=== PATIENT | male | born 1960 | race Caucasian/White ===

== ENCOUNTER 2021-03-28 16:19 | Emergency (ER) | payer OTHER, SELFPAY ==
--- NOTE | ~2021-03-28 | XR_ITS ---
EXAMINATION: XR chest 2V DATE: 03/28/2021 16:45 INDICATION: Midsternal chest pain TECHNIQUE: PA and lateral views of the chest are obtained. COMPARISON: None available FINDINGS: The lungs are free of acute opacities. There is no pleural effusion or pneumothorax. The ca rdiomediastinal silhouette is normal. There is mild thoracic spondylosis. IMPRESSION: 1. No acute cardiopulmonary abnormality. Reviewed, dictated and finalized at location [facility]
--- NOTE | 2021-03-28 16:20 | ECG_ITS ---
Measurements Intervals [place] Rate: 83 P: 58 DC: 136 QRS: 34 QRSD: 101 T: 7 QT: 369 QTc: 436 Interpretive Statements SINUS RHYTHM DELAYED PRECORDIAL R/S TRANSITION INFERIOR INFARCT, AGE INDETERMINATE ABNORMAL ECG Electronically Signed On 03-28-2021 18:23:13 ADVERTISING COORDINATOR by Pedrito Guillen D.O.
[2021-03-28 16:21] VITALS: BP 166/102; PULSE 93; RESP 18; TEMP 36.9; O2SAT 100
[2021-03-28 16:51] LABS: Basophils Percent Auto 0.4 % (0.2-1.2); Eosinophils Absolute Auto 0.1 K/mm3 (0-0.3); Eosinophils Percent Auto 0.7 % (0-4.4); Hematocrit 42.7 % (42.0-52.0); Hemoglobin 14.5 g/dL (14.0-18.0); Immature Granulocyte Absolute 0.03 K/mm3 (0.00-0.031); Immature Granulocyte Percent A 0.3 % (0-0.5); Lymphocytes Absolute Auto 2.28 K/mm3 (0.9-3.2); Lymphocytes Percent Auto 23.7 % (18.3-44.2); Mean Corpuscular Hemoglobin 33.6 pg (26-34); Mean Corpuscular Volume 98.8 fl (80-100); Mean Platelet Volume 11.5 fl (7.4-10.4); Monocytes Absolute Auto 0.7 K/mm3 (0.1-0.6); Monocytes Percent Auto 7.6 % (2.6-8.5); Neutrophils Absolute Auto 6.5 K/mm3 (1.3-6.7); Neutrophils Percent Auto 67.3 % (45.5-73.1); Platelet Count Result 187 k/mm3 (150-375); Red Blood Count 4.32 M/mm3 (4.6-6.20); Red Cell Distribution Width 13.5 % (11.5-14.5); White Blood Count 9.6 K/mm3 (4.5-10.0)
[2021-03-28 16:58] LABS: Alanine Aminotransferase 39 U/L (4-50); Albumin Level 4.7 g/dL (3.5-5.1); Alkaline Phosphatase 71 U/L (38-126); Anion Gap 10 mmol/L (8-16); Aspartate Amino Transferase 37 U/L (17-59); Bilirubin,Total 0.8 mg/dL (0.2-1.3); Blood Urea Nitrogen 16 mg/dL (9-20); Calcium 9.3 mg/dL (8.4-10.2); Carbon Dioxide 25 mmol/L (22-30); Chloride 102 mmol/L (98-107); Estimated CRCL calculation 68 ml/min; Estimated Glomerular Filt Rate > 60; Glucose 131 mg/dL (65-110); Lipase 101 U/L (23-300); Potassium 4.2 mmol/L (3.4-5.0); Sodium 137 mmol/L (137-145)
[2021-03-28 17:03] LABS: Partial Thromboplastin Time 29.2 SECONDS (22.3-36.8); Prothrombin Time 13.2 Seconds (11.1-14.7)
[2021-03-28 17:09] LABS: Troponin I < 0.012 ng/mL (0.000-0.034)
[2021-03-28 17:26] VITALS: BP 125/87; PULSE 77; RESP 22; O2SAT 97
[2021-03-28 17:37] VITALS: PULSE 76
--- NOTE | 2021-03-28 17:57 | ED.CHESTPAIN ---
HPI - Chest Pain General Chief Complaint: Chest Pain Stated Complaint: chest pains Time Seen by Provider: 03/28/21 17:40 Source: patient Mode of arrival: ambulatory Limitations: no limitations History of Present Illness HPI narrative: Patient is 61-year-old male complain of chest pain, midsternal, dull, was 6 out of 10, now resolved, nonradiating started this morning. Patient denies any shortness of breath, abdominal pain, nausea, vomiting, diaphoresis, fever or chills Related Data Home Medications Medication Instructions Recorded Confirmed esomeprazole magnesium [Nexium mg 03/28/21 24HR] Allergies Allergy/AdvReac Type Severity Reaction Status Date / Time No Known Allergies Allergy Verified 03/28/21 16:27 Review of Systems Review of Systems: All systems reviewed & are unremarkable except as noted in HPI and below Constitutional: Constitutional: Denies body ache(s), Denies chills, Denies excessive sweating, Denies fatigue, Denies fever(s), Denies headache(s), Denies lethargy, Denies malaise, Denies weakness and Denies weight loss Eyes: Eyes: Denies blurry vision, Denies change in vision and Denies loss of vision ENT: Denies dizziness, Denies ear discharge, Denies headache(s), Denies lip swelling, Denies epistaxis, Denies nasal congestion, Denies neck pain, Denies throat swelling and Denies tongue swelling Cardiovascular: Cardiovascular: Denies diaphoresis, Denies rapid heart rate, Denies edema, Denies irregular heart rhythm, Denies lightheadedness, Denies palpitations, Denies dyspnea and Denies dyspnea on exertion Respiratory: Respiratory: Denies chest congestion, Denies cough, Denies hemoptysis, Denies dyspnea and Denies dyspnea on exertion Gastrointestinal: Gastrointestinal: Denies abdominal pain, Denies melena, Denies hematochezia, Denies diarrhea, Denies nausea, Denies vomiting and Denies hematemesis Musculoskeletal: Musculoskeletal: Denies abnormal gait, Denies deformity, Denies joint swelling, Denies limited range of motion, Denies neck pain and Denies numbness Neurologic: Denies Abnormal speech present, Denies abnormal gait, Denies confusion, Denies dizziness, Denies headache(s), Denies focal weakness, Denies loss of vision, Denies numbness, Denies Other visual disturbances, Denies Sensory deficit (Neuro) and Denies weakness Psychiatric: Psychiatric: Denies confusion, Denies depression, Denies auditory hallucinations, Denies homicidal ideation and Denies suicidal ideation Endocrine: Endocrine: Denies cold intolerance, Denies excessive sweating, Denies fatigue, Denies heat intolerance and Denies palpitations Hematologic/Lymphatic: Hematologic/Lymphatic: Denies easy bleeding and Denies easy bruising Allergic/Immunologic: Allergic/Immunologic: Denies lip swelling, Denies throat swelling and Denies tongue swelling PMFSH Comments Past medical history: None Family history: Negative for coronary artery disease or [place] Social history: Non-smoker no EtOH or drug use Exam Const: General: cooperative, healthy appearing, comfortable, no acute distress, well developed, alert and awake; No confusion Orientation/consciousness: oriented to person, oriented to place, oriented to time, patient oriented x3 and No confusion Limitations: no limitations HENMT: Head: normal to inspection, normocephalic and atraumatic Ears: hearing grossly normal bilaterally, TM normal on the right and TM normal on the left General nose exam: Normal external nose present, Normal nares present and No nasal discharge present Face and sinus: normal facial exam Mouth: Yes Normal oral and palatal mucosa present, Yes lip normal, Yes tongue normal and Yes oropharynx normal Throat: posterior oropharynx normal, tonsils normal and uvula midline Eyes: General: appearance normal, both eyes and all related structures Pupils: Equal, round and reactive pupils present EOM: EOMs intact bilaterally Neck: Neck: normal visual inspection, full ROM, no lymphadenop
[2021-03-28 18:31] VITALS: BP 146/92; PULSE 73; RESP 22; O2SAT 97
[2021-03-28 19:16] VITALS: BP 157/96; PULSE 82; RESP 23; O2SAT 97
[2021-03-28 19:46] LABS: Troponin I < 0.012 ng/mL (0.000-0.034)
[2021-03-28 20:56] VITALS: BP 157/96; PULSE 78; RESP 18; O2SAT 100
== END 2021-03-28 20:57 | disposition home or self-care (01) ==
PROVIDERS: Emergency Provider Emergency Medicine
DX: R07.89 Other chest pain (principal); R94.31 Abnormal electrocardiogram [ECG] [EKG]
CPT/HCPCS: 36415; 71046; 80053; 83690; 84484; 85025; 85610; 85730; 93005; 99284

== ENCOUNTER 2021-04-09 11:23 | Outpatient (CLI) | payer OTHER, SELFPAY ==
[2021-04-09 20:29] LABS: Hemoglobin A1C 5.1 % (<5.7)
[2021-04-09 20:47] LABS: Prostate Specific Antigen 8.5 ng/mL (< OR = 4.0)
== END 2021-04-09 11:24 | disposition home or self-care (01) ==
LOC: ANHBWCLAB 11:24
PROVIDERS: PCP Family Medicine; Visit Provider Family Medicine
DX: R73.9 Hyperglycemia, unspecified (principal); Z12.5 Encounter for screening for malignant neoplasm of prostate
CPT/HCPCS: 36415; 83036; 84153; G0103

== ENCOUNTER 2022-04-15 11:43 | Outpatient (CLI) | payer OTHER, SELFPAY ==
[2022-04-15 18:42] LABS: Basophils Absolute Auto 0.1 K/mm3 (0.0-0.1); Eosinophils Absolute Auto 0.1 K/mm3 (0-0.3); Eosinophils Percent Auto 1.5 % (0-4.4); Hemoglobin 14.5 g/dL (14.0-18.0); Immature Granulocyte Absolute 0.02 K/mm3 (0.00-0.031); Immature Granulocyte Percent A 0.3 % (0-0.5); Lymphocytes Absolute Auto 2.44 K/mm3 (0.9-3.2); Monocytes Absolute Auto 0.5 K/mm3 (0.1-0.6); Monocytes Percent Auto 9.1 % (2.6-8.5); Neutrophils Absolute Auto 2.7 K/mm3 (1.3-6.7); Neutrophils Percent Auto 46.1 % (45.5-73.1); Platelet Count Result 197 k/mm3 (150-375); Red Cell Distribution Width 13.9 % (11.5-14.5); White Blood Count 5.8 K/mm3 (4.5-10.0)
[2022-04-15 20:07] LABS: Alanine Aminotransferase 45 U/L (6-50); Albumin Level 4.3 g/dL (3.5-5.1); Alkaline Phosphatase 74 U/L (38-126); Anion Gap 7 mmol/L (8-16); Aspartate Amino Transferase 53 U/L (17-59); Bilirubin,Total 0.7 mg/dL (0.2-1.3); Blood Urea Nitrogen 13 mg/dL (9-20); Calcium 8.9 mg/dL (8.4-10.2); Carbon Dioxide 29 mmol/L (22-30); Chloride 103 mmol/L (98-107); Estimated Glomerular Filt Rate > 60; Glucose 91 mg/dL (65-110); HDL Direct 60 mg/dL; Potassium 4.5 mmol/L (3.4-5.0); Sodium 139 mmol/L (137-145); Triglycerides 260 mg/dL (<150)
[2022-04-15 20:15] LABS: LDL Cholesterol Direct 197 mg/dL
[2022-04-15 20:38] LABS: Prostate Specific Antigen 9.7 ng/mL (< OR = 4.0)
[2022-04-15 21:03] LABS: Cholesterol 328 mg/dL (0-200)
== END 2022-04-15 11:44 | disposition home or self-care (01) ==
PROVIDERS: PCP Family Medicine; Visit Provider Family Medicine
DX: Z00.00 Encounter for general adult medical examination without abnormal findings (principal); R07.9 Chest pain, unspecified; R97.20 Elevated prostate specific antigen [PSA]; R73.9 Hyperglycemia, unspecified; Z12.5 Encounter for screening for malignant neoplasm of prostate
CPT/HCPCS: 36415; 80053; 80061; 84153; 85025; G0103

== ENCOUNTER 2024-02-02 11:02 | Inpatient (IN) | payer MEDICARE, SELFPAY ==
[2024-02-02] VITALS (7 sets, daily range): BP systolic 131–158; BP diastolic 67–88; PULSE 68–86; RESP 14–18; TEMP 36.6–37.3; O2SAT 96–100; BMI 25.9
--- NOTE | ~2024-02-02 | CT_ITS ---
EXAMINATION: CT abdomen pelvis w con DATE: 02/02/2024 14:40 INDICATION: Blood in the stool and urine with abdominal pain. TECHNIQUE: Computed tomography (CT) of the abdomen and pelvis was performed with 100 mL Omnipaque-350 intravenous contrast. Automated exposure control and iterative reconstruction technique were employe d. The dose-length product was 480.05 mGy-cm. COMPARISON: None FINDINGS: Lung bases are clear. Heart size normal. No pericardial or pleural effusion. Small sliding-type hiata l hernia. There are a couple small cysts in the lateral segment left hepatic lobe the largest measuri ng 1.2 cm. Multiple calcified gallstones in the normal partially decompressed gallbladder. Spleen, pa ncreas, bilateral adrenal glands and kidneys are normal. No evident urolithiasis. Small bowel and adan endix are normal. Moderate colonic diverticulosis with distal predominance. There is wall thickening and inflammatory streaking surrounding the proximal sigmoid colon. There is a more dense tract of sof t tissue and fluid density with a few associated foci of extraluminal gas extending between the affec low segment of the sigmoid colon and the dome of the bladder. There is prominent wall thickening of t he bladder along with some intraluminal gas. The constellation of findings the most consistent with p erforated diverticulitis and secondary colovesical fistula formation. Prostatomegaly. No drainable ab scess. Small fat-containing umbilical hernia. No pathologically enlarged abdominal or pelvic lymphade nopathy. Mild scattered degenerative skeletal changes in the spine and pelvis. IMPRESSION: 1. Diverticulitis with colovesical fistula. 2. Cholelithiasis. 3. Small sliding-type hiatal hernia. Reviewed, dictated and finalized at location B. [facility]
--- NOTE | 2024-02-02 12:53 | ED_ITS ---
HPI - Abdominal Pain General Chief Complaint: Abdominal Pain <Joseline Fan PA-C - Last Filed: 02/02/24 12:55> Stated Complaint: abd pain, rectal bleeding <Joseline Fan PA-C - Last Filed: 02/02/24 12:55> Time Seen by Provider: 02/02/24 15:43 <Joseline Fan PA-C - Last Filed: 02/02/24 12:55> Focused HPI: 63 y/o M presents to the ED for lower abdominal pain x1 month. Also reporting blood in urine and blood and mucus in stool for 4 days. He is scheduled for colonoscopy in 1 week and is scheduled to see a GI physician in February. He is also reporting dysuria. Denies nausea, vomiting, diarrhea, fevers. No past medical history, no surgical history. GENERAL: Well-appearing, well-nourished, and in no acute distress. HEAD: Normocephalic, atraumatic. CHEST: Clear to auscultation. ?No respiratory distress. HEART: Regular rate and rhythm.? NEURO: ?Alert and oriented x3. Patient screened in triage and initial orders placed.? ?Additional care and disposition to be based upon?diagnostic testing and treatment. <Joseline Fan PA-C - Last Filed: 02/02/24 12:55> Source: patient and family <Hetal Matthews MD - Last Filed: 02/02/24 17:08> History of Present Illness HPI narrative: AGREE WITH ABOVE <Hetal Matthews MD - Last Filed: 02/02/24 17:08> MD elicited complaint: abdominal pain <Hetal Matthews MD - Last Filed: 02/02/24 17:08> Related Data Home Medications: Home Medications Medication Instructions Recorded Confirmed esomeprazole magnesium 20 mg mg 03/28/21 01/24/24 capsule,delayed release (Nexium 24HR) multivitamin (Daily Multi-Vitamin 1 tablet PO DAILY 04/09/21 01/24/24 tablet) <DANI Whitney Last Filed: 02/02/24 12:55> Allergies/Adverse Reactions: Allergies Allergy/AdvReac Type Severity Reaction Status Date / Time No Known Allergies Allergy Verified 01/24/24 10:45 <Joseline Fan PA-C - Last Filed: 02/02/24 12:55> Review of Systems Review of Systems: All systems reviewed & are unremarkable except as noted in HPI and below <Hetal Matthews MD - Last Filed: 02/02/24 17:08> PMFSH Past Medical History Medical History: Medical History H/O gastroesophageal reflux (GERD) <Joseline Fan PA-C - Last Filed: 02/02/24 12:55> Surgical History Surgical History: Surgical History History of surgery on arm for broken bones <Joseline Fan PA-C - Last Filed: 02/02/24 12:55> Family History Family History: Family History Father Lung cancer Mother Ovarian cancer <Joseline Fan PA-C - Last Filed: 02/02/24 12:55> Social History Social History: Social History Smoking status: Never smoker Lack of Transportation: No Lack of Food: Never True Current Housing: I Have Housing Concerned About Future Housing: No Difficulty Paying Gas/Electric Bills: No Difficulty Paying for Meds: No Currently Unemployed: No Difficulty w/ Childcare or Family Care: Decline to Answer <Joseline Fan PA-C - Last Filed: 02/02/24 12:55> Exam Narrative: GENERAL APPEARANCE: WELL-DEVELOPED, WELL-NOURISHED SKIN: NORMAL COLOR HEAD: NORMOCEPHALIC, NONTRAUMATIC EYES: CLEAR CONJUNCTIVA ENT: OROPHARYNX NORMAL, EARS NORMAL, NOSE NORMAL NECK: SUPPLE, NONTENDER CHEST AND RESPIRATORY: AIRWAY PATENT, NO RESPIRATORY DISTRESS, NO ACCESSORY MUSCLE USE HEART: REGULAR RATE/RHYTHM ABDOMEN: SOFT, MILD SUPRAPUBIC TENDERNESS, NO ORGANOMEGALY, QUIET BOWEL SOUNDS VASCULAR: NORMAL PERIPHERAL PULSES, NORMAL CAPILLARY REFILL. MUSCULOSKELETAL: NORMAL RANGE OF MOTION, NONTENDER BACK NEUROLOGIC: ALERT AND ORIENTED ?3, LOOK OUT TOWER FIRE WATCHER IS NORMAL TESTED, NO GROSS MOTOR DEFICIT <Hetal Matthews MD - Last Filed: 02/02/24 17:08> Course Consultations Consultation #1: DR. VILLARREAL <Hetal Matthews MD - Last Filed: 02/02/24 17:08> Date: 02/02/24 <Hetal Matthews MD - Last Filed: 02/02/24 17:08> Time: 17:07 <Hetal Matthews MD - Last Filed: 02/02/24 17:08> Vital Signs Vital signs: Vital Signs Temperature 36.6 C 02/02/24 11:24 Pulse Rate 81 02/02/24 11:24 Respiratory Rate 14 02/02/24 11:24 Blood Pressure 132/67 02/02/24 11:24 Pulse Oximetry 100 02/02/24 11:24 Oxygen Delivery Room Air 02/02/24 11:24 Temperature 36.9 C 02/02/24 16:43 Pulse Rate 82 02/02/24 16:43 Respiratory Rate 15 02/02/24 16:43 Blood Pressure 158/88 H 02/02/24 16:43 Pulse Oximetry 99 02/02/24 16:43 Oxygen Delivery Room Air 02/02/24 11:24 <Joseline Fan PA-C - Last Filed: 02/02/24 12:55> Vital Signs Temperature 36.6 C 02/02/24 11:24 Pulse Rate 81 02/02/24 11:24 Respiratory Rate 14 02/02/24 11:24 Blood Pressure 132/67 02/02/24 11:24 Pulse Oximetry 100 02/02/24 11:24 Oxygen Delivery Room Air 02/02/24 11:24 Temperature 36.9 C 02/02/24 16:43 Pulse Rate 82 02/02/24 16:43 Respiratory Rate 15 02/02/24 16:43 Blood Pressure 158/88 H 02/02/24 16:43 Pulse Oximetry 99 02/02/24 16:43 Oxygen Delivery Room Air 02/02/24 11:24 <Hetal Matthews MD - Last Filed: 02/02/24 17:08> MDM - Abdominal Pain MDM Narrative Medical decision making narrative: PATIENT PRESENTS WITH SUPRAPUBIC TENDERNESS OVER 1 MONTH. PATIENT ALSO NOTICE SOME REDNESS IN THE STOOL OVER THE LAST FEW WEEKS SCHEDULED FOR COLONOSCOPY NEXT WEEK. VITAL SIGNS ARE STABLE PHYSICAL EXAMINATION SHOWING SLIGHT TENDERNESS OF THE SUPRAPUBIC AREA WORKUP TODAY SHOWED ELEVATED WBC 17.7, LOW HEMOGLOBIN 11.7, ELEVATED PLATELET 395, NORMAL LIVER ENZYMES, URINALYSIS SHOWED EVIDENCE OF INFECTION CT ABDOMEN AND PELVIS WITH IV CONTRAST SHOWED DIVERTICULITIS WITH COLOVESICAL FISTULA URINARY TRACT INFECTION IS SECONDARY TO THE COLOVESICAL FISTULA ADMIT TO HOSPITALIST, CONSULT SURGERY <Hetal Matthews MD - Last Filed: 02/02/24 17:08> Differential Diagnosis Differential diagnosis: Likely other ( ABOVE) <Hetal Matthews MD - Last Filed: 02/02/24 17:08> Medical Records Attestation: I reviewed the patient's medical records. <Hetal Matthews MD - Last Filed: 02/02/24 17:08> Lab Data Attestation: I reviewed the patient's lab results. <Hetal Matthews MD - Last Filed: 02/02/24 17:08> Result diagrams: 02/02/24 13:51 02/02/24 13:51 <Joseline Fan PA-C - Last Filed: 02/02/24 12:55> Labs: Lab Results 02/02/24 Range/Units 13:51 WBC 11.7 H (4.5-10.0) K/mm3 RBC 3.86 L (4.6-6.20) M/mm3 Hgb 11.7 L (14.0-18.0) g/dL Hct 36.2 L (42.0-52.0) % MCV 93.8 (80-100) fl MCH 30.3 (26-34) pg MCHC 32.3 (32-36) g/dl RDW 13.6 (11.5-14.5) % Plt Count 395 H D (150-375) k/mm3 MPV 10.2 (7.4-10.4) fl Immature Gran % (Auto) 0.6 H (0-0.5) % Neut % (Auto) 73.4 H (45.5-73.1) % Lymph % (Auto) 16.9 L (18.3-44.2) % [place] % (Auto) 7.1 (2.6-8.5) % Eos % (Auto) 1.5 (0-4.4) % Baso % (Auto) 0.5 (0.2-1.2) % Lymph # (Auto) 1.97 (0.9-3.2) K/mm3 [place] # (Auto) 0.8 H (0.1-0.6) K/mm3 Eos # (Auto) 0.2 (0-0.3) K/mm3 Baso # (Auto) 0.1 (0.0-0.1) K/mm3 Abs Immat Gran (auto) 0.07 H (0.00-0.031) K/mm3 Absolute Neuts (auto) 8.6 H (1.3-6.7) K/mm3 Absolute Nucleated RBC 0.000 (0.0-0.012) K/mm3 Nucleated RBC % 0.0 (0.0-0.2) % Sodium 138 (137-145) mmol/L Potassium 4.4 (3.4-5.0) mmol/L Chloride 101 (98-107) mmol/L Carbon Dioxide 29 (22-30) mmol/L Anion Gap 8 (4-12) mmol/L BUN 14 (9-20) mg/dL Creatinine 0.80 (0.7-1.3) mg/dL Estim Creat Clear Calc 78 ml/min Estimated GFR > 60 (59 - ) Glucose 97 (65-110) mg/dL Calcium 9.1 (8.4-10.2) mg/dL Total Bilirubin 0.4 (0.2-1.3) mg/dL AST 20 (17-59) U/L ALT 18 (6-50) U/L Alkaline Phosphatase 97 (38-126) U/L Total Protein 8.0 (6.3-8.2) g/dL Albumin 4.0 (3.5-5.1) g/dL Lipase 79 (23-300) U/L Urine Color Dark yellow (Yellow) Urine Appearance Turbid H (Clear) Urine pH 7.0 (5.0-9.0) Ur Specific [place] 1.016 (1.001-1.035) Urine Protein 1+ H (Negative) mg/dL Urine Glucose (UA) Negative (Negative) mg/dL Urine Ketones Negative (Negative) mg/dL Ur Blood (Man) 2+ H (Negative) Urine Nitrate Negative (Negative) Urine Bilirubin Negative (Negative) Urine Urobilinogen 0.2 (<2.0) mg/dL Leukocyte Esterase Rfl 3+ H (Negative) CANDI/UL Urine RBC 11-20 H (0-2) /hpf Urine WBC >100 H (0-3) /hpf Ur Squamous Epith Cells None seen (Few) /hpf Urine Bacteria None seen /hpf Urine Casts 0-2 <Joseline Fan PA-C - Last Filed: 02/02/24 12:55> Lab Results 02/02/24 Range/Units 13:51 WBC 11.7 H (4.5-10.0) K/mm3 RBC 3.86 L (4.6-6.20) M/mm3 Hgb 11.7 L (14.0-18.0) g/dL Hct 36.2 L (42.0-52.0) % MCV 93.8 (80-100) fl MCH 30.3 (26-34) pg MCHC 32.3 (32-36) g/dl RDW 13.6 (11.5-14.5) % Plt Count 395 H D (150-375) k/mm3 MPV 10.2 (7.4-10.4) fl Immature Gran % (Auto) 0.6 H (0-0.5) % Neut % (Auto) 73.4 H (45.5-73.1) % Lymph % (Auto) 16.9 L (18.3-44.2) % [place] % (Auto) 7.1 (2.6-8.5) % Eos % (Auto) 1.5 (0-4.4) % Baso % (Auto) 0.5 (0.2-1.2) % Lymph # (Auto) 1.97 (0.9-3.2) K/mm3 [place] # (Auto) 0.8 H (0.1-0.6) K/mm3 Eos # (Auto) 0.2 (0-0.3) K/mm3 Baso # (Auto) 0.1 (0.0-0.1) K/mm3 Abs Immat Gran (auto) 0.07 H (0.00-0.031) K/mm3 Absolute Neuts (auto) 8.6 H (1.3-6.7) K/mm3 Absolute Nucleated RBC 0.000 (0.0-0.012) K/mm3 Nucleated RBC % 0.0 (0.0-0.2) % Sodium 138 (137-145) mmol/L Potassium 4.4 (3.4-5.0) mmol/L Chloride 101 (98-107) mmol/L Carbon Dioxide 29 (22-30) mmol/L Anion Gap 8 (4-12) mmol/L BUN 14 (9-20) mg/dL Creatinine 0.80 (0.7-1.3) mg/dL Estim Creat Clear Calc 78 ml/min Estimated GFR > 60 (59 - ) Glucose 97 (65-110) mg/dL Calcium 9.1 (8.4-10.2) mg/dL Total Bilirubin 0.4 (0.2-1.3) mg/dL AST 20 (17-59) U/L ALT 18 (6-50) U/L Alkaline Phosphatase 97 (38-126) U/L Total Protein 8.0 (6.3-8.2) g/dL Albumin 4.0 (3.5-5.1) g/dL Lipase 79 (23-300) U/L Urine Color Dark yellow (Yellow) Urine Appearance Turbid H (Clear) Urine pH 7.0 (5.0-9.0) Ur Specific [place] 1.016 (1.001-1.035) Urine Protein 1+ H (Negative) mg/dL Urine Glucose (UA) Negative (Negative) mg/dL Urine Ketones Negative (Negative) mg/dL Ur Blood (Man) 2+ H (Negative) Urine Nitrate Negative (Negative) Urine Bilirubin Negative (Negative) Urine Urobilinogen 0.2 (<2.0) mg/dL Leukocyte Esterase Rfl 3+ H (Negative) CANDI/UL Urine RBC 11-20 H (0-2) /hpf Urine WBC >100 H (0-3) /hpf Ur Squamous Epith Cells None seen (Few) /hpf Urine Bacteria None seen /hpf Urine Casts 0-2 <Hetal Matthews MD - Last Filed: 02/02/24 17:08> Imaging Data Radiologist's impression: ITS Impressions Abdomen/Pelvis CT 02/02/24 15:04 IMPRESSION: 1. Diverticulitis with colovesical fistula. 2. Cholelithiasis. 3. Small sliding-type hiatal hernia. <Joseline Fan PA-C - Last Filed: 02/02/24 12:55> ITS Impressions Abdomen/Pelvis CT 02/02/24 15:04 IMPRESSION: 1. Diverticulitis with colovesical fistula. 2. Cholelithiasis. 3. Small sliding-type hiatal hernia. <Hetal Matthews MD - Last Filed: 02/02/24 17:08> Critical Care Time Critical Care Time Critical Care Time: No <Hetal Matthews MD - Last Filed: 02/02/24 17:08> Discharge Plan Discharge Clinical Impression: Urinary tract infection, [place]-vesical fistula <Joseline Fan PA-C - Last Filed: 02/02/24 12:55> Patient Disposition: Still a Patient <Joseline Fan PA-C - Last Filed: 02/02/24 12:55> Condition: Stable <Joseline Fan PA-C - Last Filed: 02/02/24 12:55> Prescriptions: No Action multivitamin [Daily Multi-Vitamin] Tablet 1 tablet PO DAILY dicyclomine 20 mg tablet 20 mg PO QID PRN (Reason: abdominal pain) Qty: 40 0RF esomeprazole magnesium [Nexium 24HR] 20 mg Capsule,Delayed Release(Dr/Ec) nitrofurantoin monohyd/m-cryst 100 mg capsule 100 mg PO Q12H 7 Days Qty: 14 0RF Rx Instructions: must administer with a meal/food <Joseline Fan PA-C - Last Filed: 02/02/24 12:55> Follow-up/Referrals: Shayan Herrera MD [Primary Care Provider] - <DANI Whitney Last Filed: 02/02/24 12:55>
[2024-02-02 13:57] LABS: Basophils Absolute Auto 0.1 K/mm3 (0.0-0.1); Basophils Percent Auto 0.5 % (0.2-1.2); Eosinophils Absolute Auto 0.2 K/mm3 (0-0.3); Eosinophils Percent Auto 1.5 % (0-4.4); Hematocrit 36.2 % (42.0-52.0); Hemoglobin 11.7 g/dL (14.0-18.0); Immature Granulocyte Absolute 0.07 K/mm3 (0.00-0.031); Immature Granulocyte Percent A 0.6 % (0-0.5); Lymphocytes Absolute Auto 1.97 K/mm3 (0.9-3.2); Lymphocytes Percent Auto 16.9 % (18.3-44.2); Mean Corpuscular HGB Conc 32.3 g/dl (32-36); Mean Corpuscular Hemoglobin 30.3 pg (26-34); Mean Corpuscular Volume 93.8 fl (80-100); Mean Platelet Volume 10.2 fl (7.4-10.4); Monocytes Absolute Auto 0.8 K/mm3 (0.1-0.6); Monocytes Percent Auto 7.1 % (2.6-8.5); Neutrophils Absolute Auto 8.6 K/mm3 (1.3-6.7); Neutrophils Percent Auto 73.4 % (45.5-73.1); Platelet Count Result 395 k/mm3 (150-375); Red Blood Count 3.86 M/mm3 (4.6-6.20); Red Cell Distribution Width 13.6 % (11.5-14.5); White Blood Count 11.7 K/mm3 (4.5-10.0)
[2024-02-02 14:04] LABS: Add Urine Microscopic? YES; Appearance Urine Turbid (Clear); Bacteria Urine None Seen /hpf; Bilirubin Urine Negative (Negative); Blood Urine 2+ (Negative); Color Urine Dark Yellow (Yellow); Glucose Urine UA Negative (Negative); Ketones Urine Negative (Negative); Leukocyte Esterase Ur 3+ LEU/UL (Negative); Nitrate Urine Negative (Negative); Non Pathogenic Casts 0-2; Protein Urine 1+ mg/dL (Negative); Specific Grav Ur 1.016 (1.001-1.035); Squamous Epithelial Cell Urine None Seen /hpf (Few); Urobilinogen Urine 0.2 mg/dL (<2.0); WBC Urine >100 /hpf (0-3)
[2024-02-02 14:14] LABS: Alanine Aminotransferase 18 U/L (6-50); Alkaline Phosphatase 97 U/L (38-126); Anion Gap 8 mmol/L (4-12); Aspartate Amino Transferase 20 U/L (17-59); Bilirubin,Total 0.4 mg/dL (0.2-1.3); Blood Urea Nitrogen 14 mg/dL (9-20); Calcium 9.1 mg/dL (8.4-10.2); Carbon Dioxide 29 mmol/L (22-30); Chloride 101 mmol/L (98-107); Estimated CRCL calculation 78 ml/min; Estimated Glomerular Filt Rate > 60; Glucose 97 mg/dL (65-110); Lipase 79 U/L (23-300); Potassium 4.4 mmol/L (3.4-5.0); Sodium 138 mmol/L (137-145)
--- NOTE | 2024-02-02 16:33 | PC.NURSE ---
This RN Discharged patient per MD order at 1619. Patient verbalized d/c instructions. Dr. Matthews walked into room after patient departed to state the patient needed to be admitted for diverticulitis. Patient called by MD and states he will return to ED. bar hostess Lui Notified.
--- NOTE | 2024-02-02 16:37 | PC.NURSE ---
Patient returns to ED at this time with spouse. MD Matthews speaking with patient.
--- NOTE | 2024-02-02 17:40 | P.HP_ITS ---
H&P: HPI History of Present Illness Date/Time: 02/02/24 17:40 Chief Complaint: Abdominal Pain Narrative: 63 y/o M presents here with abdominal pain with PMH of GERD and elevated PSA. The patient presents here from home for further evaluation of lower abdominal pain. The pain has been ongoing since late October. He describes it as achy, radiated from the upper abdomen into the lower section, almost achy like the flu, intermittent, aggravated by ibuprofen, and no alleviating factors. He has attempted an elimination diet without success for identifying triggers. Has trialed Nexium for several years. Abdominal pain is accompanied by change in stool color and frequency as well as lack of appetite. Change in stool occurred in November, on average going 5-6 times per day and stool is yellow/formed. Prior to change, he reports on average he would have 1 formed brown stool per day. Last colonoscopy in 2018, polypectomy performed and recommended to have colonoscopy in 3 or 5 years, patient is unsure. Outpatient plan was for a CT of the abdomen/pelvis, referral to GI, and colonoscopy. The patient had a colonoscopy planned in 1 week, however patient developed new symptoms. He has now developed blood in his urine. Endorsing dysuria, urinary frequency, and urinary hesitancy. +chills and fever. Denying nausea, vomiting, diarrhea, and body aches. As well as blood in his stool for the past 4 days, blood was bright red and no clots noted. He also has had ongoing clear to yellow mucus in his stool, estimates this has been ongoing since Nov. Initial VS at presentation: 97.8? F, HR 81, RR 14, 132/67, and 100% on RA. ED workup showed: WBC 11.7, hemoglobin 11.7 (previously 14.6 on 05/05/2023), no significant electrolyte derangements, creatinine 0.8 and GFR >60, UA consistent with UTI. CT of the abdomen/pelvis showed diverticulitis with colovesical fistula, cholelithiasis, and small sliding-type hiatal hernia. [facility] Past Medical History Medical History Elevated PSA H/O gastroesophageal reflux (GERD) Surgical History Surgical History History of surgery on arm for broken bones History of tonsillectomy Family History Family History Father Lung cancer Mother Ovarian cancer Social History Social History Smoking status: Never smoker Alcohol intake: current Drinks per week: 12 Substance use: never Do You Feel Safe in your Home?: No Lack of Transportation: No Lack of Food: Never True Current Housing: I Have Housing Concerned About Future Housing: No Difficulty Paying Gas/Electric Bills: No Difficulty Paying for Meds: No Currently Unemployed: No Education: Associate Degree Difficulty w/ Childcare or Family Care: Decline to Answer Spiritual care concerns: No Meds Home Medications and Allergies Home Medications Medication Instructions Recorded Confirmed Type esomeprazole magnesium 20 mg 20 mg PO DAILY 03/28/21 02/02/24 History capsule,delayed release (Nexium 24HR) multivitamin (Daily Multi-Vitamin 1 tablet PO DAILY 04/09/21 02/02/24 History tablet) nitrofurantoin 100 mg PO Q12H UTI 7 days #14 caps 02/02/24 Rx monohydrate/macrocrystals 100 mg capsule Allergies Allergy/AdvReac Type Severity Reaction Status Date / Time No Known Allergies Allergy Verified 01/24/24 10:45 Vital Signs Vital Signs - 24 hr 02/02/24 11:24 02/02/24 13:09 02/02/24 16:19 Temperature 97.8 F Pulse Rate 81 68 77 Respiratory Rate 14 18 14 Blood Pressure 132/67 131/72 131/79 Pulse Oximetry 100 100 100 Oxygen Delivery Room Air 02/02/24 16:43 Temperature 98.5 F Pulse Rate 82 Respiratory Rate 15 Blood Pressure 158/88 H Pulse Oximetry 99 Oxygen Delivery Exam Const: General: comfortable and no acute distress Other: , male, nontoxic appearance HENMT: Face/Nose/Sinus: Normal nares present Mouth: Yes moist mucous membranes Eyes: General: appearance normal, both eyes and all related structures Sclera: sclerae normal Pupils: Equal, round and reactive pupils present E OM: EOMs intact bilaterally Resp: Effort & Inspection: normal respiratory effort Auscultation: clear to auscultation bilaterally Cardio: Rate: regular rate Rhythm: regular rhythm Other: S1-S2 present without murmur, rub, ectopy GI: Other: Abdomen soft, nondistended, nontender. Normoactive bowel sounds in all quadrants. Skin: General skin exam: normal color and no rashes or lesions noted Wounds: no wounds Neuro: Speech: normal speech Motor exam (neuro): 5/5 motor strength present throughout Sensory Exam: normal sensation Other: A&O x4 Extrem: General: normal to inspection Psych: Mental Status: mental status grossly normal Affect: normal affect Other: Good insight and judgment, pleasant H&P: Results Labs Labs: Short CBC 02/02/24 Range/Units 13:51 WBC 11.7 H (4.5-10.0) K/mm3 Hgb 11.7 L (14.0-18.0) g/dL Hct 36.2 L (42.0-52.0) % Plt Count 395 H D (150-375) k/mm3 BMP 02/02/24 13:51 Sodium 138 Potassium 4.4 Chloride 101 Carbon Dioxide 29 BUN 14 Creatinine 0.80 Glucose 97 Calcium 9.1 Liver Function 02/02/24 Range/Units 13:51 Total Bilirubin 0.4 (0.2-1.3) mg/dL AST 20 (17-59) U/L ALT 18 (6-50) U/L Alkaline Phosphatase 97 (38-126) U/L Albumin 4.0 (3.5-5.1) g/dL Urine 02/02/24 Range/Units 13:51 Urine Color Dark yellow (Yellow) Urine Appearance Turbid H (Clear) Urine pH 7.0 (5.0-9.0) Ur Specific [place] 1.016 (1.001-1.035) Urine Protein 1+ H (Negative) mg/dL Urine Glucose (UA) Negative (Negative) mg/dL Assessment and Plan Assessment and plan (1) [place]-vesical fistula: Code(s): N32.1 - Vesicointestinal fistula Status: Acute Assessment and Plan: - CT abd/pelvis: 1. Diverticulitis with colovesical fistula. 2. Cholelithiasis. 3. Small sliding-type hiatal hernia. - general surgery consulted, see note - NPO except ice chips (2) Urinary tract infection: Qualifiers: Hematuria presence: with hematuria Urinary tract infection type: acute cystitis Qualified Code(s): N30.01 - Acute cystitis with hematuria Code(s): N39.0 - Urinary tract infection, site not specified Status: Acute Assessment and Plan: - UA: Turbid, 1+ protein, 2+ blood, 3+ leuks, 11-20 RBC, greater than 100 WBC, no epithelial cells or bacteria - UC pending - previous micro reviewed, E coli on 01/30/2024 with resistance to ampicillin and intermediate to Augmentin - started on Ceftriaxone on 02/01. - started on Macrobid outpatient from [facility]A drawn on 01/29. Will hold. (3) Diverticulitis: Code(s): K57.92 - Diverticulitis of intestine, part unspecified, without perforation or abscess without bleeding Status: Acute Assessment and Plan: - CT showed diverticulitis with colovesical fistula. - started on Zosyn Q6H - analgesics PRN - IV fluids: 150 mL/hr (4) Anemia: Qualifiers: Anemia type: unspecified type Qualified Code(s): D64.9 - Anemia, unspecified Code(s): D64.9 - Anemia, unspecified Status: Acute Assessment and Plan: - Hgb 11.7, previously 14.6 in April of 2023 - add iron, TIBC, ferritin, B12, folic acid, TSH - suspect reduction due to colovesical fistula, will rule out confounding etiology Plan Diet: NPO GI Prophylaxis: Not currently indicated DVT Prophylaxis: SCDs Lines: Peripheral Code Status: Full code Quality VTE Prophylaxis VTE prophylaxis: mechanical ordered Hospitalist MIPS Advance Care Plan I have confirmed that the patient's Advanced Care Plan is present, code status is documented, or surrogate decision maker is listed in patient medical record.: Yes Medication Reconciliation I have utilized all available resources to obtain, update and review the patients current medications (includes all prescriptions, OTC, herbals, cannabis, and nutritional supplements).: Yes
--- NOTE | 2024-02-02 18:03 | P.CONGS_ITS ---
Assessment and Plan Assessment and plan (1) Diverticulitis: Code(s): K57.92 - Diverticulitis of intestine, part unspecified, without perforation or abscess without bleeding Status: Acute Assessment and Plan: I think the patient's abdominal complaints and bowel habit changes are due to diverticulitis with development of a colovesical fistula. This has been going on for at least 2 or 3 months and could certainly be associated with weight loss and anemia. I discussed the patient with the emergency room physician and agree with him being admitted and started on IV Zosyn antibiotics. Recommend bowel rest except for ice chips for now. He will not be able to have colonoscopy next week. This may be able to be accomplished in a month provided his diverticulitis improved significantly with antibiotics. Thank you for asking me to see this patient in consultation. Hopefully no emergency surgery, which usually involves an ostomy for fecal diversion, will be necessary. 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 Patient should improve significantly with antibiotics and will likely need to be discharged on some oral suppressive antibiotics to avoid further UTIs from the fistula. (3) Elevated PSA: Code(s): R97.20 - Elevated prostate specific antigen [PSA] Status: Chronic Assessment and Plan: Elevated but stable for the last 24 months. He has not had 1 since April. Recommend follow-up with Urology most likely as an outpatient. 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 (5) Urinary tract infection: Qualifiers: Hematuria presence: with hematuria Urinary tract infection type: acute cystitis Qualified Code(s): N30.01 - Acute cystitis with hematuria Code(s): N39.0 - Urinary tract infection, site not specified Status: Acute Assessment and Plan: Consequence of the fistula and E coli identified on culture from 3 days ago is sensitive to Zosyn antibiotics. History of Present Illness Consult details Consult date: 02/03/24 Reason for consult: abdominal pain Requesting physician: Hetal Matthews MD Narrative: Patient is a 63-year-old man who has been having abdominal pain and suprapubic pain with increased frequency of bowel movements since at least October of this year. He saw his primary care provider January 23, 9 days ago. That visit notes left lower quadrant pain abdominal cramping and dysuria as well. Patient was ordered to have CT scan of the abdomen and pelvis but that had not been done. He did have a urine culture with result 3 days ago, 01/30/2024 which grew E coli consistent with urinary tract infection. He is scheduled to have colonoscopy in 1 week. The patient noticed blood in his urine and mucus in his stools for the last 4 days as well as persistent abdominal pain that would wo rsen with eating. He came to the emergency room today. Evaluation there showed the patient to be afebrile with normal vital signs. [place] [address]. His abdominal exam showed some mild suprapubic tenderness but no peritoneal signs. His urinalysis was again suspicious for urinary tract infection with blood in the urine. He had a CT scan of the abdomen and pelvis which showed acute diverticulitis with evidence of a colovesical fistula. He has never been diagnosed with diverticulitis previously. Patient's last colonoscopy was in 2019. Apparently a polyp was removed and he was recommended to have a repeat colonoscopy 3 years after. Patient has lost 6 lb unintentionally since April of this year. He has a history of an elevated PSA. His initial elevation of his PSA was 8.5 in March of 2021. One year later his PSA was 9.7. Last April his PSA was 9. There is a note from urology to his primary care physician dated April of 2021 recommending the patient have a urinalysis and an MRI. There is no MRI in the record but he may have had this at another facility. At this time, I have been asked to see the patient for diverticulitis with colovesical fistula. He has been admitted to the hospitalist and is seen now in consultation. He has had no previous abdominal surgery. Review of Systems Review of Systems: All systems reviewed & are unremarkable except as noted in HPI and below (HPI and those items noted below) Constitutional: Constitutional: Denies chills and Denies fever(s) Cardiovascular: Cardiovascular: Denies chest pain, Denies diaphoresis, Denies dyspnea and Denies paroxysmal nocturnal dyspnea Respiratory: Respiratory: Denies chest congestion, Denies cough and Denies dyspnea Integumentary/Breasts: Skin/Breast: Denies lesions and Denies rash [facility] Past Medical History Medical History Elevated PSA H/O gastroesophageal reflux (GERD) Surgical History Surgical History History of surgery on arm for broken bones History of tonsillectomy Family History Family History Father Lung cancer Mother Ovarian cancer Social History Social History Smoking status: Never smoker Alcohol intake: current Drinks per week: 12 Substance use: never Do You Feel Safe in your Home?: No Lack of Transportation: No Lack of Food: Never True Current Housing: I Have Housing Concerned About Future Housing: No Difficulty Paying Gas/Electric Bills: No Difficulty Paying for Meds: No Currently Unemployed: No Education: Associate Degree Difficulty w/ Childcare or Family Care: Decline to Answer Spiritual care concerns: No Meds Home Medications and Allergies Home Medications Medication Instructions Recorded Confirmed Type esomeprazole magnesium 20 mg 20 mg PO DAILY 03/28/21 02/02/24 History capsule,delayed release (Nexium 24HR) multivitamin (Daily Multi-Vitamin 1 tablet PO DAILY 04/09/21 02/02/24 History tablet) nitrofurantoin 100 mg PO Q12H UTI 7 days #14 caps 02/02/24 Rx monohydrate/macrocrystals 100 mg capsule Allergies Allergy/AdvReac Type Severity Reaction Status Date / Time No Known Allergies Allergy Verified 01/24/24 10:45 Vital Signs Vital Signs - 24 hr 02/02/24 11:24 02/02/24 13:09 02/02/24 16:19 Temperature 36.6 C Pulse Rate 81 68 77 Respiratory Rate 14 18 14 Blood Pressure 132/67 131/72 131/79 Pulse Oximetry 100 100 100 Oxygen Delivery Room Air 02/02/24 16:43 Temperature 36.9 C Pulse Rate 82 Respiratory Rate 15 Blood Pressure 158/88 H Pulse Oximetry 99 Oxygen Delivery Exam Const: General: comfortable, no acute distress, alert, awake and thin Orientation/consciousness: patient oriented x3 and No confusion HENMT: Head: normocephalic and atraumatic Mouth: Yes Normal oral and palatal mucosa present Eyes: Conjunctivae: conjunctivae normal Pupils: Equal, round and reactive pupils present EOM: EOMs intact bilaterally Neck: Neck: normal visual inspection, no lymphadenopathy and nontender Resp: Effort & Inspection: normal respiratory effort Auscultation: clear to auscultation bilaterally Cardio: Rate: regular rate Rhythm: regular rhythm Heart sounds: no gallops, no murmurs and no rubs GI: Inspection: non-distended, scaphoid, no scars, visible herniation (Umbilical) and other (Diastasis recti ) GI Palp: Yes Soft to palpation, Yes Tenderness to palpation present (GI) (Left lower quadrant and suprapubic area with guarding), Yes Guarding due to palpation present (GI), No Hepatomegaly present and No Splenomegaly present Auscultation: Hypoactive bowel sounds present Skin: Lesions: no lesions Rashes: no rashes Neuro: General: no focal motor deficits and CN's II-XI intact bilaterally Cranial nerves: Yes Equal, round and reactive pupils present, Yes Bilaterally intact EOM present, Yes facial symmetry and Yes Midline tongue present Speech: normal speech Motor exam (neuro): 5/5 motor strength present throughout and Motor abnormalities not present Extrem: General: no clubbing, cyanosis or edema and edema Psych: Affect: normal affect Thought process: Normal thought process present Insight: Good insight present (Psych) Results Labs 02/02/24 13:51 02/02/24 13:51 Labs: Abnormal lab results 02/02/24 Range/Units 13:51 WBC 11.7 H (4.5-10.0) K/mm3 RBC 3.86 L (4.6-6.20) M/mm3 Hgb 11.7 L (14.0-18.0) g/dL Hct 36.2 L (42.0-52.0) % Plt Count 395 H D (150-375) k/mm3 Immature Gran % (Auto) 0.6 H (0-0.5) % Neut % (Auto) 73.4 H (45.5-73.1) % Lymph % (Auto) 16.9 L (18.3-44.2) % [place] # (Auto) 0.8 H (0.1-0.6) K/mm3 Abs Immat Gran (auto) 0.07 H (0.00-0.031) K/mm3 Absolute Neuts (auto) 8.6 H (1.3-6.7) K/mm3 Urine Appearance Turbid H (Clear) Urine Protein 1+ H (Negative) mg/dL Ur Blood (Man) 2+ H (Negative) Leukocyte Esterase Rfl 3+ H (Negative) CANDI/UL Urine RBC 11-20 H (0-2) /hpf Urine WBC >100 H (0-3) /hpf Diabetes panel 02/02/24 Range/Units 13:51 Sodium 138 (137-145) mmol/L Potassium 4.4 (3.4-5.0) mmol/L Chloride 101 (98-107) mmol/L Carbon Dioxide 29 (22-30) mmol/L BUN 14 (9-20) mg/dL Creatinine 0.80 (0.7-1.3) mg/dL Glucose 97 (65-110) mg/dL Calcium 9.1 (8.4-10.2) mg/dL AST 20 (17-59) U/L ALT 18 (6-50) U/L Alkaline Phosphatase 97 (38-126) U/L Total Protein 8.0 (6.3-8.2) g/dL Albumin 4.0 (3.5-5.1) g/dL Calcium panel 02/02/24 Range/Units 13:51 Calcium 9.1 (8.4-10.2) mg/dL Albumin 4.0 (3.5-5.1) g/dL Pituitary panel 02/02/24 Range/Units 13:51 Sodium 138 (137-145) mmol/L Potassium 4.4 (3.4-5.0) mmol/L Chloride 101 (98-107) mmol/L Carbon Dioxide 29 (22-30) mmol/L BUN 14 (9-20) mg/dL Creatinine 0.80 (0.7-1.3) mg/dL Glucose 97 (65-110) mg/dL Calcium 9.1 (8.4-10.2) mg/dL Adrenal panel 02/02/24 Range/Units 13:51 Sodium 138 (137-145) mmol/L Potassium 4.4 (3.4-5.0) mmol/L Chloride 101 (98-107) mmol/L Carbon Dioxide 29 (22-30) mmol/L BUN 14 (9-20) mg/dL Creatinine 0.80 (0.7-1.3) mg/dL Glucose 97 (65-110) mg/dL Calcium 9.1 (8.4-10.2) mg/dL Total Bilirubin 0.4 (0.2-1.3) mg/dL AST 20 (17-59) U/L ALT 18 (6-50) U/L Alkaline Phosphatase 97 (38-126) U/L Total Protein 8.0 (6.3-8.2) g/dL Albumin 4.0 (3.5-5.1) g/dL All other labs normal. Imaging Abdomen CT scan report/results: report reviewed and image reviewed CT scan - pelvis: report reviewed and image reviewed (Acute diverticulitis with air in the urinary bladder and attached sigmoid colon suggestive of colovesical fistula.)
--- NOTE | 2024-02-02 19:17 | ADMGEN ---
This patient, Nixon [place], was admitted to [facility] Surg Room 316-01. Patient/family oriented to hospital policies and general routines including ID bracelet, bed and alarms, visiting hours, pain management, procedures, bathroom and other care routines, personal items, smoking policy, room service/diet, and visiting hours. Information on how to activate the Rapid Response Team has been discussed. Patient/Family are encouraged to report perceived risks to care and to ask questions if they do not understand what they are told or what they should do.
[2024-02-02] MEDS: IBUPROFEN IV 800 MG/200 ML 800 MG/200 ML BAG 400 MG IVPB (20:15)
[2024-02-02] MEDS: LACTATED RINGERS 1,000 ML 150 ML IV CONT (20:15)
[2024-02-02 20:47] LABS: Iron 31 ug/dL (49-181)
[2024-02-02 20:58] LABS: Percent Iron Saturation 14 % (20-50)
[2024-02-02 22:05] LABS: Folic Acid > 20.0 ng/mL (2.76->20)
[2024-02-02] MEDS: PIPERACILLN/TAZ 3.375GM/NS50ML 3.375 GM/50 ML BAG IVPB (22:23)
[2024-02-03] MEDS: PIPERACILLN/TAZ 3.375GM/NS50ML 3.375 GM/50 ML BAG IVPB ×4 (00:52→20:17)
[2024-02-03 05:03] VITALS: BP 115/73; PULSE 71; RESP 16; TEMP 36.7; O2SAT 99
[2024-02-03 07:14] LABS: Basophils Absolute Auto 0.1 K/mm3 (0.0-0.1); Basophils Percent Auto 0.5 % (0.2-1.2); Eosinophils Absolute Auto 0.2 K/mm3 (0-0.3); Eosinophils Percent Auto 1.5 % (0-4.4); Hematocrit 33.3 % (42.0-52.0); Hemoglobin 10.8 g/dL (14.0-18.0); Immature Granulocyte Absolute 0.04 K/mm3 (0.00-0.031); Immature Granulocyte Percent A 0.3 % (0-0.5); Lymphocytes Absolute Auto 1.61 K/mm3 (0.9-3.2); Lymphocytes Percent Auto 13.5 % (18.3-44.2); Mean Corpuscular HGB Conc 32.4 g/dl (32-36); Mean Corpuscular Hemoglobin 30.3 pg (26-34); Mean Corpuscular Volume 93.3 fl (80-100); Mean Platelet Volume 10.8 fl (7.4-10.4); Monocytes Absolute Auto 0.8 K/mm3 (0.1-0.6); Monocytes Percent Auto 6.6 % (2.6-8.5); Neutrophils Absolute Auto 9.3 K/mm3 (1.3-6.7); Neutrophils Percent Auto 77.6 % (45.5-73.1); Platelet Count Result 358 k/mm3 (150-375); Red Blood Count 3.57 M/mm3 (4.6-6.20); Red Cell Distribution Width 13.6 % (11.5-14.5)
[2024-02-03 07:22] LABS: Alanine Aminotransferase 16 U/L (6-50); Albumin Level 3.5 g/dL (3.5-5.1); Alkaline Phosphatase 93 U/L (38-126); Anion Gap 4 mmol/L (4-12); Aspartate Amino Transferase 18 U/L (17-59); Bilirubin,Total 0.6 mg/dL (0.2-1.3); Blood Urea Nitrogen 12 mg/dL (9-20); Calcium 8.5 mg/dL (8.4-10.2); Carbon Dioxide 27 mmol/L (22-30); Chloride 105 mmol/L (98-107); Estimated CRCL calculation 69 ml/min; Estimated Glomerular Filt Rate > 60; Glucose 98 mg/dL (65-110); Potassium 4.1 mmol/L (3.4-5.0); Sodium 136 mmol/L (137-145)
--- NOTE | 2024-02-03 08:45 | P.PNIM_ITS ---
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 Diverticulitis with colovesical fistula. 2. Cholelithiasis. 3. Small sliding-type hiatal hernia. - general surgery consulted, plan for medical management - NPO except ice chips (2) Urinary tract infection: Qualifiers: Hematuria presence: with hematuria Urinary tract infection type: acute cystitis Qualified Code(s): N30.01 - Acute cystitis with hematuria Code(s): N39.0 - Urinary tract infection, site not specified Status: Acute Assessment and Plan: diverticulitis with no fistula - UA: Turbid, 1+ protein, 2+ blood, 3+ leuks, 11-20 RBC, greater than 100 WBC, no epithelial cells or bacteria - UC pending - previous micro reviewed, E coli on 01/30/2024 with resistance to ampicillin and intermediate to Augmentin - started on Macrobid outpatient from [facility] drawn on 01/29. Will hold. patient on Zosyn for UTI and abdominal abscess (3) Diverticulitis: Code(s): K57.92 - Diverticulitis of intestine, part unspecified, without perforation or abscess without bleeding Status: Acute Assessment and Plan: surgery consulted - CT showed diverticulitis with colovesical fistula. - started on Zosyn Q6H - analgesics PRN - IV fluids: 150 mL/hr (4) Anemia: Qualifiers: Anemia type: unspecified type Qualified Code(s): D64.9 - Anemia, unspecified Code(s): D64.9 - Anemia, unspecified Status: Acute Assessment and Plan: iron deficiency anemia - Hgb 11.7, previously 14.6 in April of 2023 - iron low, TIBC low, ferritin normal, B12 normal, folic acid high, TSH - suspect reduction due to colovesical fistula, will rule out confounding etiology IV iron replacement today, starting p.o. tomorrow Plan Diet: NPO GI Prophylaxis: Not currently indicated DVT Prophylaxis: SCDs Lines: Peripheral Code Status: Full code Time Spent With Patient Time with patient: Greater than 35 minutes Subjective Date/time seen: 02/03/24 08:45 Interval history: 63 y/o M presents here with abdominal pain with PMH of GERD and elevated PSA found to have diverticulitis with development of a colovesical fistula. seen by surgery with plan for medical management follow-up outpatient Review of Systems Review of Systems: 12 systems were reviewed and are negative except for as per HPI. Exam Narrative: A/Ox4. no abdomen tend. Const: General: comfortable and no acute distress Other: , male, nontoxic appearance HENMT: Face/Nose/Sinus: Normal nares present Mouth: Yes moist mucous membranes Eyes: General: appearance normal, both eyes and all related structures Sclera: sclerae normal Pupils: Equal, round and reactive pupils present EOM: EOMs intact bilaterally Resp: Effort & Inspection: normal respiratory effort Auscultation: clear to auscultation bilaterally Cardio: Rate: regular rate Rhythm: regular rhythm Other: S1-S2 present without murmur, rub, ectopy GI: Other: Abdomen soft, nondistended, nontender. Normoactive bowel sounds in all quadrants. Skin: General skin exam: normal color and no rashes or lesions noted Wounds: no wounds Neuro: Cranial nerves: Yes Equal, round and reactive pupils present Speech: normal speech Motor exam (neuro): 5/5 motor strength present throughout Sensory Exam: normal sensation Other: A&O x4 Extrem: General: normal to inspection Psych: Mental Status: mental status grossly normal Affect: normal affect Other: Good insight and judgment, pleasant Objective Data Vital Signs Vital Signs: Vital Signs - 24 hr 02/02/24 11:24 02/02/24 13:09 02/02/24 16:19 Temperature 97.8 F Pulse Rate 81 68 77 Respiratory Rate 14 18 14 Blood Pressure 132/67 131/72 131/79 Pulse Oximetry 100 100 100 Oxygen Delivery Room Air 02/02/24 16:43 02/02/24 18:20 02/02/24 19:00 Temperature 98.5 F 97.8 F 99.2 F Pulse Rate 82 78 86 Respiratory Rate 15 16 16 Blood Pressure 158/88 H 137/72 142/74 H Pulse Oximetry 99 96 99 Oxygen Delivery 02/02/24 20:24 02/02/24 20:00 02/03/24 05:03 Temperature 99.1 F 98.0 F Pulse Rate 76 71 Respiratory Rate 18 16 Blood Pressure 136/70 115/73 Pulse Oximetry 100 99 Oxygen Delivery Room Air Intake/Output Intake/Output: Intake & Output 01/31/24 02/01/24 02/02/24 02/03/24 23:59 23:59 23:59 23:59 Intake Total 100 600 Balance 100 600 Meds/Results Medications: Active Medications Generic Name Dose Route Start Last Admin Trade Name Freq PRN Reason Stop Dose Admin Enoxaparin Sodium 40 mg 02/03/24 09:00 Enoxaparin 40 Mg/0.4 Ml Syringe SUB-Q DAILY REPLACED BY [facility] Ceftriaxone Sodium 1 gm in 50 mls @ 100 mls/hr 02/02/24 15:45 Rocephin 1 Gm/Ns 50 Ml IVPB Q24H YULIA Piperacillin/Tazobactam/Dextrose 3.375 gm in 50 mls @ 100 mls/hr 02/02/24 20:00 02/03/24 08:01 Zosyn 3.375 Gm/Ns 50 Ml IVPB 100 mls/hr Q6H YULIA Administration Lactated Ringer's 1,000 mls @ 150 mls/hr 02/02/24 17:20 02/03/24 08:03 Lr - Lactated Ringers Iv IV CONT Not Given .Q6H40M REPLACED BY [facility] Ibuprofen 800 mg in 200 mls @ 400 mls/hr 02/02/24 18:25 02/02/24 20:15 Caldolor 800 Mg/200 Ml IVPB 400 mls/hr Q6H PRN Administration Breakthrough Pain Rated 1-3 or NPO Miscellaneous Information 1 each 02/03/24 00:01 02/03/24 07:50 Order Clarification XX 03/04/24 00:00 Not Given CLARIFY REPLACED BY [facility] Morphine Sulfate 4 mg 02/02/24 17:18 Morphine Sulfate (*Crx) 4 Mg/Ml Inj IV PUSH Q2H PRN Pain Rated 7-10 Morphine Sulfate 2 mg 02/02/24 18:25 Morphine Sulfate (*Crx) 2 Mg/Ml Inj IV PUSH Q2H PRN Breakthrough Pain Rated 4-6 or NPO Morphine Sulfate 4 mg 02/02/24 18:25 Morphine Sulfate (*Crx) 4 Mg/Ml Inj IV PUSH Q2H PRN Breakthrough Pain Rated 7-10 or NPO Multivitamins Therapeutic 1 tablet 02/03/24 09:00 Multivitamins Therapeutic Tab (*Bkc) PO DAILY REPLACED BY [facility] Naloxone HCl 0.1 mg 02/02/24 18:25 Naloxone Hcl 0.4 Mg/Ml Vial IV PUSH Q2M PRN Opiate Reversal Ondansetron HCl 4 mg 02/02/24 18:25 Ondansetron Inj 4 Mg/2 Ml Vial IV PUSH Q4H PRN Nausea And Vomiting Pantoprazole Sodium 40 mg 02/03/24 09:00 Pantoprazole 40 Mg Tablet PO QAM REPLACED BY [facility] Radiology Results: ITS Impressions Abdomen/Pelvis CT 02/02/24 15:04 IMPRESSION: 1. Diverticulitis with colovesical fistula. 2. Cholelithiasis. 3. Small sliding-type hiatal hernia. Labs Labs: Laboratory Results - last 24 hr 02/02/24 02/02/24 02/03/24 13:51 20:23 06:46 WBC 11.7 H 12.0 H RBC 3.86 L 3.57 L Hgb 11.7 L 10.8 L Hct 36.2 L 33.3 L MCV 93.8 93.3 MCH 30.3 30.3 MCHC 32.3 32.4 RDW 13.6 13.6 Plt Count 395 H D 358 MPV 10.2 10.8 H Immature Gran % (Auto) 0.6 H 0.3 Neut % (Auto) 73.4 H 77.6 H Lymph % (Auto) 16.9 L 13.5 L Tate % (Auto) 7.1 6.6 Eos % (Auto) 1.5 1.5 Baso % (Auto) 0.5 0.5 Lymph # (Auto) 1.97 1.61 Tate # (Auto) 0.8 H 0.8 H Eos # (Auto) 0.2 0.2 Baso # (Auto) 0.1 0.1 Abs Immat Gran (auto) 0.07 H 0.04 H Absolute Neuts (auto) 8.6 H 9.3 H Absolute Nucleated RBC 0.000 0.000 Nucleated RBC % 0.0 0.0 Sodium 138 136 L Potassium 4.4 4.1 Chloride 101 105 Carbon Dioxide 29 27 Anion Gap 8 4 BUN 14 12 Creatinine 0.80 0.90 Estim Creat Clear Calc 78 69 Estimated GFR > 60 > 60 Glucose 97 98 Calcium 9.1 8.5 Iron 31 L TIBC 221 L % Saturation 14 L Ferritin 255.00 Total Bilirubin 0.4 0.6 AST 20 18 ALT 18 16 Alkaline Phosphatase 97 93 Total Protein 8.0 7.0 Albumin 4.0 3.5 Lipase 79 Vitamin B12 848.0 Folate > 20.0 H TSH (Reflex) 2.120 Urine Color Dark yellow Urine Appearance Turbid H Urine pH 7.0 Ur Specific [place] 1.016 Urine Protein 1+ H Urine Glucose (UA) Negative Urine Ketones Negative Ur Blood (Man) 2+ H Urine Nitrate Negative Urine Bilirubin Negative Urine Urobilinogen 0.2 Leukocyte Esterase Rfl 3+ H Urine RBC 11-20 H Urine WBC >100 H Ur Squamous Epith Cells None seen Urine Bacteria None seen Urine Casts 0-2 Quality VTE Prophylaxis VTE prophylaxis: mechanical ordered Hospitalist [facility] Advance Care Plan I have confirmed that the patient's Advanced Care Plan is present, code status is documented, or surrogate decision maker is listed in patient medical record.: Yes Medication Reconciliation I have utilized all available resources to obtain, update and review the patients current medications (includes all prescriptions, OTC, herbals, cannabis, and nutritional supplements).: Yes
[2024-02-03 08:48] VITALS: O2SAT 99
[2024-02-03] MEDS: PANTOPRAZOLE 40 MG TABLET PO (09:06)
[2024-02-03 09:40] VITALS: BMI 25.9
[2024-02-03] MEDS: IRON SUCROSE COMPLEX 200 MG in SODIUM CHLORIDE 0.9% IV 100 ML 220 MG IVPB (09:49)
[2024-02-03 14:00] VITALS: BP 132/76; PULSE 86; RESP 18; TEMP 37.3; O2SAT 80
[2024-02-03] MEDS: IBUPROFEN IV 800 MG/200 ML 800 MG/200 ML BAG 400 MG IVPB ×2 (15:24→23:39)
--- NOTE | 2024-02-03 18:25 | P.PNGS_ITS ---
Progress Note: A&P Assessment and Plan (1) Diverticulitis: Code(s): K57.92 - Diverticulitis of intestine, part unspecified, without perforation or abscess without bleeding Status: Acute Assessment and Plan: Improving with IV Zosyn antibiotics and bowel rest. Mostly taking IV ibuprofen as needed for pain. I discussed the long-term plan with him should he improve with antibiotic treatment. 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 He can take suppressive antibiotics and have another colonoscopy. Typically these do not heal without surgical resection including sigmoidectomy with anastomosis and over-sewing of the opening in the bladder. Continue present treatment. Possibly start liquids tomorrow if pain is significantly improved. 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 Patient has had a couple of UTIs which would also be consistent with this diagnosis. (3) Urinary tract infection: Qualifiers: Hematuria presence: with hematuria Urinary tract infection type: acute cystitis Qualified Code(s): N30.01 - Acute cystitis with hematuria Code(s): N39.0 - Urinary tract infection, site not specified Status: Acute Assessment and Plan: Present on admission, being treated with antibiotics. (4) Elevated PSA: Code(s): R97.20 - Elevated prostate specific antigen [PSA] Status: Chronic Assessment and Plan: Has been around 9 for the last 3 years. Should follow-up with Urology as an outpatient. Subjective Subjective Date/Time Seen: 02/03/24 18:25 Patient reports: feels better, pain is less, voiding w/o difficulty and afebrile Interval history: Patient has suprapubic pain is improved. He does notice he still has some abdominal tenderness. Overall feels better than yesterday. Review of Systems Review of Systems: All systems reviewed & are unremarkable except as noted in HPI and below (HPI) Exam Const: General: comfortable, no acute distress, alert, awake and thin Orientation/consciousness: patient oriented x3 GI: Inspection: normal to inspection, non-distended, scaphoid and no visible herniation GI Palp: Yes Soft to palpation, Yes Tenderness to palpation present (GI) (Left lower quadrant and suprapubic area buffing machine tender, less than yesterday, ), Yes Guarding due to palpation present (GI) (Left lower quadrant), No Hernia present, No Palpable mass present and No Ascites present Neuro: General: patient oriented x3 and no focal motor deficits Extrem: General: no calf tenderness and no edema Psych: Affect: normal affect Insight: Good insight present (Psych) Judgement: Good judgement present (Psych) Objective Data Vital Signs Vital Signs: Vital Signs - 24 hr 02/02/24 19:00 02/02/24 20:24 02/02/24 20:00 Temperature 37.3 C 37.3 C Pulse Rate 86 76 Respiratory Rate 16 18 Blood Pressure 142/74 H 136/70 Pulse Oximetry 99 100 Oxygen Delivery Room Air Fraction of Inspired Oxygen 02/03/24 05:03 02/03/24 08:48 02/03/24 08:00 Temperature 36.7 C Pulse Rate 71 Respiratory Rate 16 Blood Pressure 115/73 Pulse Oximetry 99 99 Oxygen Delivery Room Air Room Air Fraction of Inspired Oxygen 21 02/03/24 14:00 Temperature 37.3 C Pulse Rate 86 Respiratory Rate 18 Blood Pressure 132/76 Pulse Oximetry 80 L Oxygen Delivery Fraction of Inspired Oxygen Intake/Output Intake/Output: Intake & Output 01/31/24 02/01/24 02/02/24 02/03/24 23:59 23:59 23:59 23:59 Intake Total 300 1250 Balance 300 1250 Meds/Results Medications: Active Medications Generic Name Dose Route Start Last Admin Trade Name Freq PRN Reason Stop Dose Admin Enoxaparin Sodium 40 mg 02/03/24 09:00 02/03/24 09:19 Enoxaparin 40 Mg/0.4 Ml Syringe SUB-Q Not Given DAILY Y[facility] Piperacillin/Tazobactam/Dextrose 3.375 gm in 50 mls @ 100 mls/hr 02/02/24 20:00 02/03/24 15:20 Zosyn 3.375 Gm/Ns 50 Ml IVPB Infused Q6H YULIA Infusion Lactated Ringer's 1,000 mls @ 150 mls/hr 02/02/24 17:20 02/03/24 17:22 Lr - Lactated Ringers Iv IV CONT Not Given .Q6H40M YULIA Ibuprofen 800 mg in 200 mls @ 400 mls/hr 02/02/24 18:25 02/03/24 15:54 Caldolor 800 Mg/200 Ml IVPB Infused Q6H PRN Infusion Breakthrough Pain Rated 1-3 or NPO Morphine Sulfate 4 mg 02/02/24 17:18 Morphine Sulfate (*Crx) 4 Mg/Ml Inj IV PUSH Q2H PRN Pain Rated 7-10 Morphine Sulfate 2 mg 02/02/24 18:25 Morphine Sulfate (*Crx) 2 Mg/Ml Inj IV PUSH Q2H PRN Breakthrough Pain Rated 4-6 or NPO Morphine Sulfate 4 mg 02/02/24 18:25 Morphine Sulfate (*Crx) 4 Mg/Ml Inj IV PUSH Q2H PRN Breakthrough Pain Rated 7-10 or NPO Multivitamins Therapeutic 1 tablet 02/03/24 09:00 02/03/24 09:06 Multivitamins Therapeutic Tab (*Bkc) PO Not Given DAILY [facility] Naloxone HCl 0.1 mg 02/02/24 18:25 Naloxone Hcl 0.4 Mg/Ml Vial IV PUSH Q2M PRN Opiate Reversal Ondansetron HCl 4 mg 02/02/24 18:25 Ondansetron Inj 4 Mg/2 Ml Vial IV PUSH Q4H PRN Nausea And Vomiting Pantoprazole Sodium 40 mg 02/03/24 09:00 02/03/24 09:06 Pantoprazole 40 Mg Tablet PO 40 mg QAM [facility] Administration Polysaccharide Iron Complex 150 mg 02/04/24 08:00 Polysaccharide Iron Complex 150 Mg Capsule PO DAILY@0800 [facility] Radiology Results: ITS Impressions Abdomen/Pelvis CT 02/02/24 15:04 IMPRESSION: 1. Diverticulitis with colovesical fistula. 2. Cholelithiasis. 3. Small sliding-type hiatal hernia. Labs Labs: Laboratory Results - last 24 hr 02/02/24 02/03/24 20:23 06:46 WBC 12.0 H RBC 3.57 L Hgb 10.8 L Hct 33.3 L MCV 93.3 MCH 30.3 MCHC 32.4 RDW 13.6 Plt Count 358 MPV 10.8 H Immature Gran % (Auto) 0.3 Neut % (Auto) 77.6 H Lymph % (Auto) 13.5 L [place] % (Auto) 6.6 Eos % (Auto) 1.5 Baso % (Auto) 0.5 Lymph # (Auto) 1.61 [place] # (Auto) 0.8 H Eos # (Auto) 0.2 Baso # (Auto) 0.1 Abs Immat Gran (auto) 0.04 H Absolute Neuts (auto) 9.3 H Absolute Nucleated RBC 0.000 Nucleated RBC % 0.0 Sodium 136 L Potassium 4.1 Chloride 105 Carbon Dioxide 27 Anion Gap 4 BUN 12 Creatinine 0.90 Estim Creat Clear Calc 69 Estimated GFR > 60 Glucose 98 Calcium 8.5 Iron 31 L TIBC 221 L % Saturation 14 L Ferritin 255.00 Total Bilirubin 0.6 AST 18 ALT 16 Alkaline Phosphatase 93 Total Protein 7.0 Albumin 3.5 Vitamin B12 848.0 Folate > 20.0 H TSH (Reflex) 2.120
[2024-02-03] MEDS: LACTATED RINGERS 1,000 ML 100 ML IV CONT (20:29)
[2024-02-03 22:00] VITALS: BP 150/72; PULSE 75; RESP 12; TEMP 37.1; O2SAT 97
[2024-02-04] MEDS: PIPERACILLN/TAZ 3.375GM/NS50ML 3.375 GM/50 ML BAG IVPB ×4 (01:13→20:28)
[2024-02-04] MEDS: LACTATED RINGERS 1,000 ML 100 ML IV CONT ×2 (01:13→08:12)
[2024-02-04 06:00] VITALS: BP 119/56; PULSE 62; RESP 12; TEMP 36.3; O2SAT 97
[2024-02-04 06:56] LABS: Anion Gap 11 mmol/L (4-12); Blood Urea Nitrogen 14 mg/dL (9-20); Calcium 8.5 mg/dL (8.4-10.2); Carbon Dioxide 23 mmol/L (22-30); Chloride 104 mmol/L (98-107); Estimated CRCL calculation 78 ml/min; Estimated Glomerular Filt Rate > 60; Glucose 74 mg/dL (65-110); Potassium 3.9 mmol/L (3.4-5.0); Sodium 138 mmol/L (137-145)
[2024-02-04 06:57] LABS: Basophils Absolute Auto 0.1 K/mm3 (0.0-0.1); Basophils Percent Auto 0.8 % (0.2-1.2); Eosinophils Absolute Auto 0.2 K/mm3 (0-0.3); Eosinophils Percent Auto 1.7 % (0-4.4); Hematocrit 32.9 % (42.0-52.0); Hemoglobin 10.1 g/dL (14.0-18.0); Immature Granulocyte Absolute 0.04 K/mm3 (0.00-0.031); Immature Granulocyte Percent A 0.4 % (0-0.5); Lymphocytes Absolute Auto 1.28 K/mm3 (0.9-3.2); Lymphocytes Percent Auto 12.5 % (18.3-44.2); Mean Corpuscular HGB Conc 30.7 g/dl (32-36); Mean Corpuscular Hemoglobin 29.4 pg (26-34); Mean Corpuscular Volume 95.6 fl (80-100); Mean Platelet Volume 10.6 fl (7.4-10.4); Monocytes Absolute Auto 0.8 K/mm3 (0.1-0.6); Monocytes Percent Auto 7.4 % (2.6-8.5); Neutrophils Absolute Auto 7.9 K/mm3 (1.3-6.7); Neutrophils Percent Auto 77.2 % (45.5-73.1); Platelet Count Result 330 k/mm3 (150-375); Red Blood Count 3.44 M/mm3 (4.6-6.20); Red Cell Distribution Width 13.6 % (11.5-14.5); White Blood Count 10.3 K/mm3 (4.5-10.0)
[2024-02-04] MEDS: POLYSACCHARIDE IRON COMPLEX 150 MG CAPSULE PO (08:06)
[2024-02-04] MEDS: PANTOPRAZOLE 40 MG TABLET PO (08:07)
[2024-02-04] MEDS: MULTIVITAMINS THERAPEUTIC TAB (*BKC) 1 TABLET PO (08:07)
--- NOTE | 2024-02-04 11:30 | P.PNIM_ITS ---
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 Diverticulitis with colovesical fistula. 2. Cholelithiasis. 3. Small sliding-type hiatal hernia. - general surgery following, medical management recommended for now. - NPO except ice chips. - Diet resumption per general surgery. (2) Urinary tract infection: Qualifiers: Hematuria presence: with hematuria Urinary tract infection type: acute cystitis Qualified Code(s): N30.01 - Acute cystitis with hematuria Code(s): N39.0 - Urinary tract infection, site not specified Status: Acute Assessment and Plan: -Likely related to colovesical fistula. - UA: Turbid, 1+ protein, 2+ blood, 3+ leuks, 11-20 RBC, greater than 100 WBC, no epithelial cells or bacteria - UC growing E.Coli, sensitivities pending. - previous micro reviewed, E coli on 01/30/2024 with resistance to ampicillin and intermediate to Augmentin - started on Macrobid outpatient from [facility] drawn on 01/29. Will hold. - patient on Zosyn for UTI and abdominal abscess (3) Diverticulitis: Code(s): K57.92 - Diverticulitis of intestine, part unspecified, without perforation or abscess without bleeding Status: Acute Assessment and Plan: - CT showed diverticulitis with colovesical fistula. - Surgery following. - Continue Zosyn Q6H - analgesics PRN - IV fluids: 150 mL/hr (4) Anemia: Qualifiers: Anemia type: unspecified type Qualified Code(s): D64.9 - Anemia, unspecified Code(s): D64.9 - Anemia, unspecified Status: Acute Assessment and Plan: iron deficiency anemia - Hgb 11.7, previously 14.6 in April of 2023 - iron low, TIBC low, ferritin normal, B12 normal, folic acid high, - IV iron given 02/02, started on PO supplementation. - Monitor H/H closely. Plan Diet: NPO for now GI Prophylaxis: Not currently indicated DVT Prophylaxis: SCDs Lines: Peripheral Code Status: Full code Time Spent With Patient Time with patient: 15 - 25 minutes Subjective Date/time seen: 02/04/24 11:30 Patient calm on bedrest and states he's comfortable with minimal discomfort to lower abdomen. Reports urinary symptoms appear resolved and abdominal discomfort much improved. States he's really hungry and wants to eat something. Interval history: Patient presented with abdominal pain and changes in stool color. CT a/p was consistent with perforated diverticulitis and secondary colovesical fistula formation. General surgery was consulted and conservative medical mgt was recommended for now. Review of Systems Review of Systems: 12 systems were reviewed and are negative except for as per HPI. All systems reviewed & are unremarkable except as noted in HPI and below Exam Narrative: HEENT: Atraumatic, PERRL, EOM, non-icteric, moist mucus membranes. NECK: Supple. LUNGS: Clear bilaterally. HEART: RRR, No murmurs. ABDOMEN: Mild tenderness to lower abdomen otherwise benign with +ve bowel sounds. EXTREMITIES: No edema, +ve pedal pulses. SKIN: Warm and dry, no lesions noted. NEURO: Well oriented, no focal neuro deficits noted. PSYCH: Pleasant and co-operative. Objective Data Vital Signs Vital Signs: Vital Signs - 24 hr 02/03/24 14:00 02/03/24 22:00 02/03/24 20:00 Temperature 99.1 F 98.7 F Pulse Rate 86 75 Respiratory Rate 18 12 Blood Pressure 132/76 150/72 H Pulse Oximetry 80 L 97 Oxygen Delivery Room Air Fraction of Inspired Oxygen 21 02/04/24 06:00 02/04/24 08:00 Temperature 97.4 F L Pulse Rate 62 Respiratory Rate 12 Blood Pressure 119/56 L Pulse Oximetry 97 Oxygen Delivery Room Air Fraction of Inspired Oxygen Intake/Output Intake/Output: Intake & Output 02/01/24 02/02/24 02/03/24 02/04/24 23:59 23:59 23:59 23:59 Intake Total 300 2300 1221.6 Output Total 0 Balance 300 2300 1221.6 Meds/Results Medications: Active Medications Generic Name Dose Route Start Last Admin Trade Name Freq PRN Reason Stop Dose Admin Enoxaparin Sodium 40 mg 02/03/24 09:00 02/04/24 08:17 Enoxaparin 40 Mg/0.4 Ml Syringe SUB-Q Not Given DAILY Y[facility]IA Piperacillin/Tazobactam/Dextrose 3.375 gm in 50 mls @ 100 mls/hr 02/02/24 20:00 02/04/24 08:07 Zosyn 3.375 Gm/Ns 50 Ml IVPB 100 mls/hr Q6H YULIA Administration Lactated Ringer's 1,000 mls @ 100 mls/hr 02/02/24 17:20 02/04/24 08:12 Lr - Lactated Ringers Iv IV CONT 100 mls/hr .Q10H YULIA Administration Ibuprofen 800 mg in 200 mls @ 400 mls/hr 02/02/24 18:25 02/03/24 23:39 Caldolor 800 Mg/200 Ml IVPB 400 mls/hr Q6H PRN Administration Breakthrough Pain Rated 1-3 or NPO Morphine Sulfate 4 mg 02/02/24 17:18 Morphine Sulfate (*Crx) 4 Mg/Ml Inj IV PUSH Q2H PRN Pain Rated 7-10 Morphine Sulfate 2 mg 02/02/24 18:25 Morphine Sulfate (*Crx) 2 Mg/Ml Inj IV PUSH Q2H PRN Breakthrough Pain Rated 4-6 or NPO Morphine Sulfate 4 mg 02/02/24 18:25 Morphine Sulfate (*Crx) 4 Mg/Ml Inj IV PUSH Q2H PRN Breakthrough Pain Rated 7-10 or NPO Multivitamins Therapeutic 1 tablet 02/03/24 09:00 02/04/24 08:07 Multivitamins Therapeutic Tab (*Bkc) PO 1 tablet DAILY YULIA Administration Naloxone HCl 0.1 mg 02/02/24 18:25 Naloxone Hcl 0.4 Mg/Ml Vial IV PUSH Q2M PRN Opiate Reversal Ondansetron HCl 4 mg 02/02/24 18:25 Ondansetron Inj 4 Mg/2 Ml Vial IV PUSH Q4H PRN Nausea And Vomiting Pantoprazole Sodium 40 mg 02/03/24 09:00 02/04/24 08:07 Pantoprazole 40 Mg Tablet PO 40 mg QAM YULIA Administration Polysaccharide Iron Complex 150 mg 02/04/24 08:00 02/04/24 08:06 Polysaccharide Iron Complex 150 Mg Capsule PO 150 mg DAILY@0800 YULIA Administration Radiology Results: ITS Impressions Abdomen/Pelvis CT 02/02/24 15:04 IMPRESSION: 1. Diverticulitis with colovesical fistula. 2. Cholelithiasis. 3. Small sliding-type hiatal hernia. Labs Labs: Laboratory Results - last 24 hr 02/04/24 06:32 WBC 10.3 H RBC 3.44 L Hgb 10.1 L Hct 32.9 L MCV 95.6 MCH 29.4 MCHC 30.7 L RDW 13.6 Plt Count 330 MPV 10.6 H Immature Gran % (Auto) 0.4 Neut % (Auto) 77.2 H Lymph % (Auto) 12.5 L [place] % (Auto) 7.4 Eos % (Auto) 1.7 Baso % (Auto) 0.8 Lymph # (Auto) 1.28 [place] # (Auto) 0.8 H Eos # (Auto) 0.2 Baso # (Auto) 0.1 Abs Immat Gran (auto) 0.04 H Absolute Neuts (auto) 7.9 H Absolute Nucleated RBC 0.000 Nucleated RBC % 0.0 Sodium 138 Potassium 3.9 Chloride 104 Carbon Dioxide 23 Anion Gap 11 BUN 14 Creatinine 0.80 Estim Creat Clear Calc 78 Estimated GFR > 60 Glucose 74 Calcium 8.5 Quality VTE Prophylaxis VTE prophylaxis: mechanical ordered Hospitalist [facility] Advance Care Plan I have confirmed that the patient's Advanced Care Plan is present, code status is documented, or surrogate decision maker is listed in patient medical record.: Yes Medication Reconciliation I have utilized all available resources to obtain, update and review the patients current medications (includes all prescriptions, OTC, herbals, cannabis, and nutritional supplements).: Yes
[2024-02-04 14:00] VITALS: BP 136/75; PULSE 18; RESP 18; TEMP 36.8; O2SAT 99
[2024-02-04 21:27] VITALS: BP 104/51; PULSE 68; RESP 16; TEMP 37.1; O2SAT 98
[2024-02-05] MEDS: PIPERACILLN/TAZ 3.375GM/NS50ML 3.375 GM/50 ML BAG IVPB ×4 (00:59→21:12)
[2024-02-05 05:19] VITALS: BP 124/65; PULSE 73; RESP 18; TEMP 36.8; O2SAT 99
[2024-02-05 06:36] LABS: Basophils Absolute Auto 0.1 K/mm3 (0.0-0.1); Basophils Percent Auto 0.6 % (0.2-1.2); Eosinophils Absolute Auto 0.2 K/mm3 (0-0.3); Eosinophils Percent Auto 1.9 % (0-4.4); Hematocrit 31.9 % (42.0-52.0); Hemoglobin 10.4 g/dL (14.0-18.0); Immature Granulocyte Absolute 0.04 K/mm3 (0.00-0.031); Immature Granulocyte Percent A 0.4 % (0-0.5); Lymphocytes Absolute Auto 1.73 K/mm3 (0.9-3.2); Lymphocytes Percent Auto 16.7 % (18.3-44.2); Mean Corpuscular HGB Conc 32.6 g/dl (32-36); Mean Corpuscular Hemoglobin 30.1 pg (26-34); Mean Corpuscular Volume 92.2 fl (80-100); Mean Platelet Volume 10.5 fl (7.4-10.4); Monocytes Absolute Auto 0.8 K/mm3 (0.1-0.6); Monocytes Percent Auto 8.1 % (2.6-8.5); Neutrophils Absolute Auto 7.5 K/mm3 (1.3-6.7); Neutrophils Percent Auto 72.3 % (45.5-73.1); Platelet Count Result 366 k/mm3 (150-375); Red Blood Count 3.46 M/mm3 (4.6-6.20); Red Cell Distribution Width 13.5 % (11.5-14.5); White Blood Count 10.4 K/mm3 (4.5-10.0)
--- NOTE | 2024-02-05 08:50 | PM.IMPN ---
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 Diverticulitis with colovesical fistula. 2. Cholelithiasis. 3. Small sliding-type hiatal hernia. - general surgery following, medical management recommended for now. - Currently on full-liquid diet. - Diet advancement per general surgery. - Long-term mgt, including surgical treatment, discussed with pt per general surgery. - Continue supportive care. (2) Urinary tract infection: Qualifiers: Hematuria presence: with hematuria Urinary tract infection type: acute cystitis Qualified Code(s): N30.01 - Acute cystitis with hematuria Code(s): N39.0 - Urinary tract infection, site not specified Status: Acute Assessment and Plan: -Likely related to colovesical fistula. - UA: Turbid, 1+ protein, 2+ blood, 3+ leuks, 11-20 RBC, greater than 100 WBC, no epithelial cells or bacteria - UC growing E.Coli, sensitive to Zosyn. - started on Macrobid outpatient from [facility] drawn on 01/29. - Covered by current Zosyn treatment for abdominal abscess. (3) Diverticulitis: Code(s): K57.92 - Diverticulitis of intestine, part unspecified, without perforation or abscess without bleeding Status: Acute Assessment and Plan: - CT showed diverticulitis with colovesical fistula. - Surgery following. - Continue Zosyn Q6H. - May probably need surgery in the long-term per general surgery. - Continue analgesics PRN. - IV fluids discontinued with diet resumption and good PO intake. (4) Anemia: Qualifiers: Anemia type: unspecified type Qualified Code(s): D64.9 - Anemia, unspecified Code(s): D64.9 - Anemia, unspecified Status: Acute Assessment and Plan: iron deficiency anemia - Hgb 11.7, previously 14.6 in April of 2023 - iron low, TIBC low, ferritin normal, B12 normal, folic acid high, - IV iron given 02/02. - Continue PO iron supplementation. - H/H stable and we'll monitor closely. Plan Diet: FULL-LIQUID GI Prophylaxis: Not currently indicated DVT Prophylaxis: SCDs Lines: Peripheral Code Status: Full code Time Spent With Patient Time with patient: 15 - 25 minutes Subjective Date/time seen: 02/05/24 08:50 Patient on bedrest states he feels alright. States doing well with full liquid diet without any abdominal distress. Reports 2 small BM's since yesterday and they appeared ok. Reports abdominal pain almost resolved. Interval history: Patient on bedrest having breakfast and looks to be in no acute distress. Review of Systems Review of Systems: 12 systems were reviewed and are negative except for as per HPI. All systems reviewed & are unremarkable except as noted in HPI and below Exam Narrative: HEENT: Atraumatic, PERRL, EOM, non-icteric, moist mucus membranes. NECK: Supple. LUNGS: Clear bilaterally. HEART: RRR, No murmurs. ABDOMEN: Soft and non-tender to palpation, +ve bowel sounds X4 quadrants. EXTREMITIES: No edema, +ve pedal pulses. SKIN: Warm and dry, no lesions noted. NEURO: Well oriented, no focal neuro deficits noted. PSYCH: Pleasant and co-operative. Objective Data Vital Signs Vital Signs: Vital Signs - 24 hr 02/04/24 14:00 02/04/24 21:27 02/04/24 20:00 Temperature 98.3 F 98.8 F Pulse Rate 18 L 68 Respiratory Rate 18 16 Blood Pressure 136/75 104/51 L Pulse Oximetry 99 98 Oxygen Delivery Room Air Fraction of Inspired Oxygen 02/05/24 05:19 Temperature 98.3 F Pulse Rate 73 Respiratory Rate 18 Blood Pressure 124/65 Pulse Oximetry 99 Oxygen Delivery Fraction of Inspired Oxygen Intake/Output Intake/Output: Intake & Output 02/02/24 02/03/24 02/04/24 02/05/24 23:59 23:59 23:59 23:59 Intake Total 300 2300 1371.6 550 Output Total 0 Balance 300 2300 1371.6 550 Meds/Results Medications: Active Medications Generic Name Dose Route Start Last Admin Trade Name Freq PRN Reason Stop Dose Admin Enoxaparin Sodium 40 mg 02/03/24 09:00 02/04/24 08:17 Enoxaparin 40 Mg/0.4 Ml Syringe SUB-Q Not Given DAILY YULIA Piperacillin/Tazobactam/Dextrose 3.375 gm in 50 mls @ 100 mls/hr 02/02/24 20:00 02/05/24 00:59 Zosyn 3.375 Gm/Ns 50 Ml IVPB 100 mls/hr Q6H YULIA Administration Ibuprofen 800 mg in 200 mls @ 400 mls/hr 02/02/24 18:25 02/03/24 23:39 Caldolor 800 Mg/200 Ml IVPB 400 mls/hr Q6H PRN Administration Breakthrough Pain Rated 1-3 or NPO Morphine Sulfate 4 mg 02/02/24 17:18 Morphine Sulfate (*Crx) 4 Mg/Ml Inj IV PUSH Q2H PRN Pain Rated 7-10 Morphine Sulfate 2 mg 02/02/24 18:25 Morphine Sulfate (*Crx) 2 Mg/Ml Inj IV PUSH Q2H PRN Breakthrough Pain Rated 4-6 or NPO Morphine Sulfate 4 mg 02/02/24 18:25 Morphine Sulfate (*Crx) 4 Mg/Ml Inj IV PUSH Q2H PRN Breakthrough Pain Rated 7-10 or NPO Multivitamins Therapeutic 1 tablet 02/03/24 09:00 02/04/24 08:07 Multivitamins Therapeutic Tab (*Bkc) PO 1 tablet DAILY Y[facility]IA Administration Naloxone HCl 0.1 mg 02/02/24 18:25 Naloxone Hcl 0.4 Mg/Ml Vial IV PUSH Q2M PRN Opiate Reversal Ondansetron HCl 4 mg 02/02/24 18:25 Ondansetron Inj 4 Mg/2 Ml Vial IV PUSH Q4H PRN Nausea And Vomiting Pantoprazole Sodium 40 mg 02/03/24 09:00 02/04/24 08:07 Pantoprazole 40 Mg Tablet PO 40 mg QAM YULIA Administration Polysaccharide Iron Complex 150 mg 02/04/24 08:00 02/04/24 08:06 Polysaccharide Iron Complex 150 Mg Capsule PO 150 mg DAILY@0800 Y[facility] Administration Radiology Results: ITS Impressions Abdomen/Pelvis CT 02/02/24 15:04 IMPRESSION: 1. Diverticulitis with colovesical fistula. 2. Cholelithiasis. 3. Small sliding-type hiatal hernia. Labs Labs: Laboratory Results - last 24 hr 02/05/24 06:24 WBC 10.4 H RBC 3.46 L Hgb 10.4 L Hct 31.9 L MCV 92.2 MCH 30.1 MCHC 32.6 RDW 13.5 Plt Count 366 MPV 10.5 H Immature Gran % (Auto) 0.4 Neut % (Auto) 72.3 Lymph % (Auto) 16.7 L [place] % (Auto) 8.1 Eos % (Auto) 1.9 Baso % (Auto) 0.6 Lymph # (Auto) 1.73 [place] # (Auto) 0.8 H Eos # (Auto) 0.2 Baso # (Auto) 0.1 Abs Immat Gran (auto) 0.04 H Absolute Neuts (auto) 7.5 H Absolute Nucleated RBC 0.000 Nucleated RBC % 0.0 Quality VTE Prophylaxis VTE prophylaxis: mechanical ordered Hospitalist [facility] Advance Care Plan I have confirmed that the patient's Advanced Care Plan is present, code status is documented, or surrogate decision maker is listed in patient medical record.: Yes Medication Reconciliation I have utilized all available resources to obtain, update and review the patients current medications (includes all prescriptions, OTC, herbals, cannabis, and nutritional supplements).: Yes
[2024-02-05] MEDS: MULTIVITAMINS THERAPEUTIC TAB (*BKC) 1 TABLET PO (08:52)
[2024-02-05] MEDS: POLYSACCHARIDE IRON COMPLEX 150 MG CAPSULE PO (08:52)
[2024-02-05] MEDS: PANTOPRAZOLE 40 MG TABLET PO (08:52)
[2024-02-05 14:00] VITALS: BP 116/71; PULSE 70; RESP 18; TEMP 36.7; O2SAT 100
--- NOTE | 2024-02-05 14:02 | P.PNGS_ITS ---
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 Advanced to low-fiber diet. Still some inflammation and tenderness in the left lower quadrant but no pain and tolerating liquids well. Advanced to low-fiber diet. Recheck labs and exam again tomorrow. Possibly home tomorrow on low-fiber diet and antibiotics. Subjective Subjective Date/Time Seen: 02/05/24 14:02 Patient reports: feels better, pain is less, tolerating liquids well and afebrile Review of Systems Review of Systems: All systems reviewed & are unremarkable except as noted in HPI and below ( HPI) Exam Const: General: comfortable and awake Nutritional Appearance: well nourished GI: Inspection: normal to inspection, non-distended and scaphoid GI Palp: Yes Soft to palpation and Yes Tenderness to palpation present (GI) ( left lower quadrant, inflammatory mass, less tender) Auscultation: normal bowel sounds Objective Data Vital Signs Vital Signs: Vital Signs - 24 hr 02/04/24 21:27 02/04/24 20:00 02/05/24 05:19 Temperature 37.1 C 36.8 C Pulse Rate 68 73 Respiratory Rate 16 18 Blood Pressure 104/51 L 124/65 Pulse Oximetry 98 99 Oxygen Delivery Room Air Fraction of Inspired Oxygen 21 02/05/24 08:00 Temperature Pulse Rate Respiratory Rate Blood Pressure Pulse Oximetry Oxygen Delivery Room Air Fraction of Inspired Oxygen Intake/Output Intake/Output: Intake & Output 02/02/24 02/03/24 02/04/24 02/05/24 23:59 23:59 23:59 23:59 Intake Total 300 2300 1371.6 600 Output Total 0 Balance 300 2300 1371.6 600 Meds/Results Medications: Active Medications Generic Name Dose Route Start Last Admin Trade Name Freq PRN Reason Stop Dose Admin Acetaminophen 500 mg 02/05/24 13:59 Acetaminophen 500 Mg Tablet PO Q6H PRN Pain Rated 1-3 Hydrocodone Bitart/Acetaminophen 1 tab 02/05/24 13:59 Hydrocodone/Acetaminophen (*Crx) 10-325 Mg Tablet PO Q4H PRN Pain Rated 7-10 Enoxaparin Sodium 40 mg 02/03/24 09:00 02/05/24 08:52 Enoxaparin 40 Mg/0.4 Ml Syringe SUB-Q Not Given DAILY [facility] Piperacillin/Tazobactam/Dextrose 3.375 gm in 50 mls @ 100 mls/hr 02/02/24 20:00 02/05/24 08:52 Zosyn 3.375 Gm/Ns 50 Ml IVPB 100 mls/hr Q6H YULIA Administration Ibuprofen 800 mg in 200 mls @ 400 mls/hr 02/02/24 18:25 02/03/24 23:39 Caldolor 800 Mg/200 Ml IVPB 400 mls/hr Q6H PRN Administration Breakthrough Pain Rated 1-3 or NPO Morphine Sulfate 4 mg 02/02/24 17:18 Morphine Sulfate (*Crx) 4 Mg/Ml Inj IV PUSH Q2H PRN Pain Rated 7-10 Morphine Sulfate 2 mg 02/02/24 18:25 Morphine Sulfate (*Crx) 2 Mg/Ml Inj IV PUSH Q2H PRN Breakthrough Pain Rated 4-6 or NPO Morphine Sulfate 4 mg 02/02/24 18:25 Morphine Sulfate (*Crx) 4 Mg/Ml Inj IV PUSH Q2H PRN Breakthrough Pain Rated 7-10 or NPO Multivitamins Therapeutic 1 tablet 02/03/24 09:00 02/05/24 08:52 Multivitamins Therapeutic Tab (*Bkc) PO 1 tablet DAILY [facility] Administration Naloxone HCl 0.1 mg 02/02/24 18:25 Naloxone Hcl 0.4 Mg/Ml Vial IV PUSH Q2M PRN Opiate Reversal Ondansetron HCl 4 mg 02/02/24 18:25 Ondansetron Inj 4 Mg/2 Ml Vial IV PUSH Q4H PRN Nausea And Vomiting Oxycodone/Acetaminophen 1 tablet 02/05/24 13:59 Oxycodone/Acetaminophen (*Crx) 5-325 Mg Tablet PO Q4H PRN Pain Rated 4-6 Pantoprazole Sodium 40 mg 02/03/24 09:00 02/05/24 08:52 Pantoprazole 40 Mg Tablet PO 40 mg QAM Y[facility] Administration Polysaccharide Iron Complex 150 mg 02/04/24 08:00 02/05/24 08:52 Polysaccharide Iron Complex 150 Mg Capsule PO 150 mg DAILY@0800 Y[facility] Administration Radiology Results: ITS Impressions Abdomen/Pelvis CT 02/02/24 15:04 IMPRESSION: 1. Diverticulitis with colovesical fistula. 2. Cholelithiasis. 3. Small sliding-type hiatal hernia. Labs Labs: Laboratory Results - last 24 hr 02/05/24 06:24 WBC 10.4 H RBC 3.46 L Hgb 10.4 L Hct 31.9 L MCV 92.2 MCH 30.1 MCHC 32.6 RDW 13.5 Plt Count 366 MPV 10.5 H Immature Gran % (Auto) 0.4 Neut % (Auto) 72.3 Lymph % (Auto) 16.[address] % (Auto) 8.1 Eos % (Auto) 1.9 Baso % (Auto) 0.6 Lymph # (Auto) 1.73 Lane # (Auto) 0.8 H Eos # (Auto) 0.2 Baso # (Auto) 0.1 Abs Immat Gran (auto) 0.04 H Absolute Neuts (auto) 7.5 H Absolute Nucleated RBC 0.000 Nucleated RBC % 0.0
[2024-02-05 21:19] VITALS: BP 112/69; PULSE 67; RESP 16; TEMP 37.2; O2SAT 99
[2024-02-06] MEDS: PIPERACILLN/TAZ 3.375GM/NS50ML 3.375 GM/50 ML BAG IVPB ×3 (02:29→14:05)
[2024-02-06 05:51] VITALS: BP 115/74; PULSE 55; RESP 16; TEMP 36.4; O2SAT 99
[2024-02-06 06:33] LABS: Basophils Absolute Auto 0.1 K/mm3 (0.0-0.1); Basophils Percent Auto 0.8 % (0.2-1.2); Eosinophils Absolute Auto 0.3 K/mm3 (0-0.3); Eosinophils Percent Auto 3.1 % (0-4.4); Hematocrit 35.1 % (42.0-52.0); Hemoglobin 11.2 g/dL (14.0-18.0); Immature Granulocyte Absolute 0.03 K/mm3 (0.00-0.031); Immature Granulocyte Percent A 0.3 % (0-0.5); Mean Corpuscular HGB Conc 31.9 g/dl (32-36); Mean Corpuscular Hemoglobin 29.9 pg (26-34); Mean Corpuscular Volume 93.6 fl (80-100); Mean Platelet Volume 10.6 fl (7.4-10.4); Monocytes Absolute Auto 0.7 K/mm3 (0.1-0.6); Neutrophils Absolute Auto 5.1 K/mm3 (1.3-6.7); Neutrophils Percent Auto 58.8 % (45.5-73.1); Platelet Count Result 413 k/mm3 (150-375); Red Blood Count 3.75 M/mm3 (4.6-6.20); Red Cell Distribution Width 13.5 % (11.5-14.5); White Blood Count 8.6 K/mm3 (4.5-10.0)
[2024-02-06 07:13] LABS: Anion Gap 8 mmol/L (4-12); Blood Urea Nitrogen 8 mg/dL (9-20); Calcium 9.1 mg/dL (8.4-10.2); Carbon Dioxide 30 mmol/L (22-30); Chloride 103 mmol/L (98-107); Estimated CRCL calculation 63 ml/min; Estimated Glomerular Filt Rate > 60; Glucose 95 mg/dL (65-110); Sodium 141 mmol/L (137-145)
[2024-02-06 08:00] VITALS: PULSE 55; RESP 16; O2SAT 99
[2024-02-06] MEDS: POLYSACCHARIDE IRON COMPLEX 150 MG CAPSULE PO (08:39)
[2024-02-06] MEDS: PANTOPRAZOLE 40 MG TABLET PO (08:39)
[2024-02-06] MEDS: MULTIVITAMINS THERAPEUTIC TAB (*BKC) 1 TABLET PO (08:40)
--- NOTE | 2024-02-06 11:39 | PCNFU ---
Nutrition Follow-Up Complete: Inadequate oral intake related to altered GI function as evidenced by NPO status Goal:Improve PO intake, diet advancement when medically able pt meeting goal Pt current nutrition is low fiber. Nutrition recommendation: nutrition education on low fiber diet per consult Last recorded weight is 77.3 kg. Bowel Motility: +BM 02/05 Labs Reviewed: Hgb:11.2, HCT:35.1, BUN:8 Meds Noted: lovenox, zofran Skin: WNL Additional Notes: pt diet advanced to low fiber, tolerating well, 100% intake. Low fiber diet education completed per consult. Pt to discharge today. Monitoring for diet orders, Intakes, weights, labs, stool output, plan of care Follow up in 7 days
--- NOTE | 2024-02-06 13:00 | PM.PNGS ---
Progress Note: A&P Assessment and Plan (1) Diverticulitis: Code(s): K57.92 - Diverticulitis of intestine, part unspecified, without perforation or abscess without bleeding Status: Acute Assessment and Plan: Continues to improve. No longer having any abdominal pain. His white blood cell count is normal. Minimal tenderness in the left lower quadrant. Okay to discharge on a low-fiber diet and oral antibiotics today. We will have him follow up with Dr. Seo in 2 weeks. Patient was scheduled for a colonoscopy prior to this hospitalization, which I instructed the patient to hold off on for at least 4-6 weeks after this episode of diverticulitis. 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 Seo. Subjective Subjective Date/Time Seen: 02/06/24 13:00 Patient reports: no new complaints, feels better, tolerating a regular diet, flatus, bowel movement and afebrile Interval history: Chart reviewed. Denies any abdominal pain this morning. Tolerating a low-fiber diet. Reports loose stools. No bloody stools. Exam Const: General: comfortable and no acute distress Orientation/consciousness: patient oriented x3 GI: Inspection: non-distended GI Palp: Yes Soft to palpation, Yes Tenderness to palpation present (GI) (Very mild left lower quadrant tenderness), No Guarding due to palpation present (GI) and No Rebound tenderness present Auscultation: normal bowel sounds Objective Data Vital Signs Vital Signs: Vital Signs - 24 hr 02/05/24 14:00 02/05/24 21:19 02/06/24 05:51 Temperature 98.0 F 99.0 F 97.6 F Pulse Rate 70 67 55 L Respiratory Rate 18 16 16 Blood Pressure 116/71 112/69 115/74 Pulse Oximetry 100 99 99 Oxygen Delivery Fraction of Inspired Oxygen 02/06/24 08:00 Temperature Pulse Rate 55 L Respiratory Rate 16 Blood Pressure Pulse Oximetry 99 Oxygen Delivery Room Air Fraction of Inspired Oxygen 21 Intake/Output Intake/Output: Intake & Output 02/03/24 02/04/24 02/05/24 02/06/24 23:59 23:59 23:59 23:59 Intake Total 2300 1371.6 1230 390 Output Total 0 Balance 2300 1371.6 1230 390 Meds/Results Medications: Active Medications Generic Name Dose Route Start Last Admin Trade Name Freq PRN Reason Stop Dose Admin Acetaminophen 500 mg 02/05/24 13:59 Acetaminophen 500 Mg Tablet PO Q6H PRN Pain Rated 1-3 Hydrocodone Bitart/Acetaminophen 1 tab 02/05/24 13:59 Hydrocodone/Acetaminophen (*Crx) 10-325 Mg Tablet PO Q4H PRN Pain Rated 7-10 Enoxaparin Sodium 40 mg 02/03/24 09:00 02/06/24 12:46 Enoxaparin 40 Mg/0.4 Ml Syringe SUB-Q Not Given DAILY YULIA Piperacillin/Tazobactam/Dextrose 3.375 gm in 50 mls @ 100 mls/hr 02/02/24 20:00 02/06/24 08:39 Zosyn 3.375 Gm/Ns 50 Ml IVPB 100 mls/hr Q6H YULIA Administration Ibuprofen 800 mg in 200 mls @ 400 mls/hr 02/02/24 18:25 02/03/24 23:39 Caldolor 800 Mg/200 Ml IVPB 400 mls/hr Q6H PRN Administration Breakthrough Pain Rated 1-3 or NPO Morphine Sulfate 4 mg 02/02/24 17:18 Morphine Sulfate (*Crx) 4 Mg/Ml Inj IV PUSH Q2H PRN Pain Rated 7-10 Morphine Sulfate 2 mg 02/02/24 18:25 Morphine Sulfate (*Crx) 2 Mg/Ml Inj IV PUSH Q2H PRN Breakthrough Pain Rated 4-6 or NPO Morphine Sulfate 4 mg 02/02/24 18:25 Morphine Sulfate (*Crx) 4 Mg/Ml Inj IV PUSH Q2H PRN Breakthrough Pain Rated 7-10 or NPO Multivitamins Therapeutic 1 tablet 02/03/24 09:00 02/06/24 08:40 Multivitamins Therapeutic Tab (*Bkc) PO 1 tablet DAILY YULIA Administration Naloxone HCl 0.1 mg 02/02/24 18:25 Naloxone Hcl 0.4 Mg/Ml Vial IV PUSH Q2M PRN Opiate Reversal Ondansetron HCl 4 mg 02/02/24 18:25 Ondansetron Inj 4 Mg/2 Ml Vial IV PUSH Q4H PRN Nausea And Vomiting Oxycodone/Acetaminophen 1 tablet 02/05/24 13:59 Oxycodone/Acetaminophen (*Crx) 5-325 Mg Tablet PO Q4H PRN Pain Rated 4-6 Pantoprazole Sodium 40 mg 02/03/24 09:00 02/06/24 08:39 Pantoprazole 40 Mg Tablet PO 40 mg QAM YULIA Administration Polysaccharide Iron Complex 150 mg 02/04/24 08:00 02/06/24 08:39 Polysaccharide Iron Complex 150 Mg Capsule PO 150 mg DAILY@0800 YULIA Administration Radiology Results: ITS Impressions Abdomen/Pelvis CT 02/02/24 15:04 IMPRESSION: 1. Diverticulitis with colovesical fistula. 2. Cholelithiasis. 3. Small sliding-type hiatal hernia. Labs Labs: Laboratory Results - last 24 hr 02/06/24 06:27 WBC 8.6 RBC 3.75 L Hgb 11.2 L Hct 35.1 L MCV 93.6 MCH 29.9 MCHC 31.9 L RDW 13.5 Plt Count 413 H MPV 10.6 H Immature Gran % (Auto) 0.3 Neut % (Auto) 58.8 Lymph % (Auto) 29.0 [place] % (Auto) 8.0 Eos % (Auto) 3.1 Baso % (Auto) 0.8 Lymph # (Auto) 2.50 [place] # (Auto) 0.7 H Eos # (Auto) 0.3 Baso # (Auto) 0.1 Abs Immat Gran (auto) 0.03 Absolute Neuts (auto) 5.1 Absolute Nucleated RBC 0.000 Nucleated RBC % 0.0 Sodium 141 Potassium 4.0 Chloride 103 Carbon Dioxide 30 Anion Gap 8 BUN 8 L D Creatinine 1.00 Estim Creat Clear Calc 63 Estimated GFR > 60 Glucose 95 Calcium 9.1
[2024-02-06 14:00] VITALS: BP 120/73; PULSE 60; RESP 18; TEMP 36.3; O2SAT 100
--- NOTE | 2024-02-06 16:16 | P.DS_ITS ---
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 Diverticulitis with colovesical fistula. 2. Cholelithiasis. 3. Small sliding-type hiatal hernia. - Seen by general surgery and medical management recommended for now. - Tolerated low- residue diet well prior to her discharge. - Long-term mgt, including surgical treatment, to be discussed with pt outpatient per general surgery. - No GI distress noted or reported prior to his discharge. (2) Urinary tract infection: Qualifiers: Hematuria presence: with hematuria Urinary tract infection type: acute cystitis Qualified Code(s): N30.01 - Acute cystitis with hematuria Code(s): N39.0 - Urinary tract infection, site not specified Status: Acute Assessment and Plan: -Likely related to colovesical fistula. - UA: Turbid, 1+ protein, 2+ blood, 3+ leuks, 11-20 RBC, greater than 100 WBC, no epithelial cells or bacteria - UC growing E.Coli, pansensitive and treated with Zosyn inpatient. (3) Diverticulitis: Code(s): K57.92 - Diverticulitis of intestine, part unspecified, without perforation or abscess without bleeding Status: Acute Assessment and Plan: - CT showed diverticulitis with colovesical fistula. - Seen by general surgery inpatient. - Treated with Zosyn. - May probably need surgery in the long-term per general surgery and will be managed outpatient. - Analgesics given PRN inpatient. (4) Anemia: Qualifiers: Anemia type: unspecified type Qualified Code(s): D64.9 - Anemia, unspecified Code(s): D64.9 - Anemia, unspecified Status: Acute Assessment and Plan: iron deficiency anemia - Hgb 11.7, previously 14.6 in April of 2023 - iron low, TIBC low, ferritin normal, B12 normal, folic acid high, - IV iron given inpatient. - Continue PO iron supplementation at home. - H/H stable remained stable inpatient. Plan Discharge Home. DS: Summary Hospital Course Reason for hospitalization: Abdominal Discomfort Hospital Course: Patient presented to the ER with reports of lower abdominal pain that he had been battling for almost 2-3 months. He also reported change in stool color to almost yellowish, with episodes of mucus on his stool as well. Patient also reported some weight loss within the same duration. [place] work[place] [address]. His abdominal exam showed some mild suprapubic tenderness but no peritoneal signs. His UA was suspicious for a UTI with blood in the urine as well. CT abd/pelvis showed acute diverticulitis with evidence of a colovesical fistula. Pt has never been diagnosed with diverticulitis previously, and denied any previous abdominal surgery. General surgery was consulted and they recommended conservative mgt with IV abx, pt being treated with IV Zosyn inpatient. Blood and urine cultures were collected, with blood cx NGTD and urine culture growing pansensitive E.Coli. With the patient being discharged on Cipro to complete treatment as well as suppressive therapy before colonoscopy per general surgery recommendations. Patient had been scheduled for a colonoscopy prior to this hospitalization, which he was instructed to hold off for at least 4-6 weeks after this episode of diverticulitis per general surgery. Patient was informed by general surgery that colovesical fistulas typically do not heal without surgical resection including sigmoidectomy with anastomosis and over-sewing of the opening in the bladder. He was advised to follow-up with general surgery for long-term mgt plans. He was treated with IV abx and symptoms improved. Diet was started with improvement in symptoms and pt was able to tolerate a low-fiber diet prior to discharge, with no GI distress. His WBC's normalized before discharge and he reported having normal BM's and voiding well also, with no distressful symptoms noted or reported prior to discharge. He was cleared for discharge by general surgery who will follow-up with him outpatient for long-term mgt of his condition. He was medically stable for discharge with no acute distress noted or reported prior to discharge. Status at Discharge Functional status at discharge: independent ambulation Overall status at discharge: patient is progressing back to baseline Time Spent with Patient Time attestation: Total time spent providing and/or coordinating discharge services: Time spent: Greater than 30 minutes Exam Narrative: HEENT: Atraumatic, PERRL, EOM, non-icteric, moist mucus membranes. NECK: Supple. LUNGS: Clear bilaterally. HEART: RRR, No murmurs. ABDOMEN: Soft and non-tender to palpation, +ve bowel sounds X4 quadrants. EXTREMITIES: No edema, +ve pedal pulses. SKIN: Warm and dry, no lesions noted. NEURO: Well oriented, no focal neuro deficits noted. PSYCH: Pleasant and co-operative. DS: Data Data Completed and Pending Labs on day of discharge: Labs from last 24 hours 02/06/24 06:27 WBC 8.6 RBC 3.75 L Hgb 11.2 L Hct 35.1 L MCV 93.6 MCH 29.9 MCHC 31.9 L RDW 13.5 Plt Count 413 H MPV 10.6 H Immature Gran % (Auto) 0.3 Neut % (Auto) 58.8 Lymph % (Auto) 29.0 [place] % (Auto) 8.0 Eos % (Auto) 3.1 Baso % (Auto) 0.8 Lymph # (Auto) 2.50 [place] # (Auto) 0.7 H Eos # (Auto) 0.3 Baso # (Auto) 0.1 Abs Immat Gran (auto) 0.03 Absolute Neuts (auto) 5.1 Absolute Nucleated RBC 0.000 Nucleated RBC % 0.0 Sodium 141 Potassium 4.0 Chloride 103 Carbon Dioxide 30 Anion Gap 8 BUN 8 L D Creatinine 1.00 Estim Creat Clear Calc 63 Estimated GFR > 60 Glucose 95 Calcium 9.1 Discharge Plan Discharge Attending physician on discharge: [place] Consulting providers: Gerhard Seo Discharging Clinician: Diony Ruth Anticipated Discharge Date/Time: 02/06/24 16:23 Patient Disposition: Home, Self-Care Activity: as tolerated Diet: low fiber Discharge Instructions: * Follow-up with Dr. Seo in 1-2 weeks. Call the office to schedule a follow-up appointment. [phone] * Continue a low fiber diet for 2 weeks. After 2 weeks, you can switch to a high fiber diet. * Take all antibiotics prescribed. * Call the surgeon or return to the ER if you are having increased abdominal pain, fever, or vomiting. * Walk at least three times daily. Avoid any heavy lifting or strenuous activity for another 1-2 weeks. * Follow up with PCP in 1-2 weeks for Anemia and Iron studies. Patient Instructions: Antibiotic Form, Low Fiber Diet (GEN), Diverticulitis Diet (GEN) Stand Alone Forms: General Discharge Information Follow-up/Referrals: Gerhard Seo MD [Physician] - Call for Appointment Discharge Medications: New polysaccharide iron complex 150 mg iron Capsule 150 mg PO DAILY@0800 Qty: 30 0RF Continued multivitamin [Daily Multi-Vitamin] Tablet 1 tablet PO DAILY esomeprazole magnesium [Nexium 24HR] 20 mg Capsule,Delayed Release(Dr/Ec) 20 mg PO DAILY Discontinued nitrofurantoin monohyd/m-cryst 100 mg capsule 100 mg PO Q12H 7 Days Qty: 14 0RF Rx Instructions: must administer with a meal/food No Action ciprofloxacin HCl 250 mg tablet 250 mg PO EVERY OTHER DAY Rx Instructions: until f/u with surgeon Date of admission: 02/02/24 17:18 Primary Care Provider: Shayan Herrera Admitting Provider: Ilana Shelby Attending physician on admission: Ilana Shelby Condition: Stable Quality If No VTE Prophylaxis Answer both mechanical and pharmacologic: Reason no mechanical VTE proph: low risk/not indicated Reason no pharmacologic proph: low risk/not indicated Hospitalist MIPS Heart Failure (Exclusion) Patient has history of Heart Transplant or Left Ventricular Assistive Device?: No IF YES, STOP HERE Heart Failure (Qualifier) Patient has current or prior documentation of LVEF less than or equal to 40%, or mod/servere depressed LVSF?: No IF NO, STOP HERE
== END 2024-02-06 16:55 | disposition home or self-care (01) | DRG 392 ==
LOC: ANHED 16:36 → ANH3MEDSUR 18:30
PROVIDERS: Physician Assistant; Student in an Organized Health Care Education/Training Program; Surgery; Admitting Provider Internal Medicine; Emergency Provider Emergency Medicine; PCP Family Medicine; Visit Provider Nurse Practitioner Adult Health
DX: K57.32 Diverticulitis of large intestine without perforation or abscess without bleeding (principal); N32.1 Vesicointestinal fistula; N39.0 Urinary tract infection, site not specified; K21.9 Gastro-esophageal reflux disease without esophagitis; R97.20 Elevated prostate specific antigen [PSA]; B96.20 Unspecified Escherichia coli [E. coli] as the cause of diseases classified elsewhere
CPT/HCPCS: 36415; 74177; 80048; 80053; 81001; 82607; 82728; 82746; 83540; 83550; 83690; 84443; 85025; 87086; 87186; 96374; 99285; A9270; J0696; J1650; J1741; J1756; J2543; J7120; Q9967

== ENCOUNTER 2024-02-07 12:40 | Inpatient (IN) | payer MEDICARE, SELFPAY ==
[2024-02-07] VITALS (8 sets, daily range): BP systolic 123–151; BP diastolic 75–83; PULSE 68–73; RESP 13–18; TEMP 36.3–37.1; O2SAT 98–100
--- NOTE | ~2024-02-07 | CT_ITS ---
EXAMINATION: CT abdomen pelvis w con DATE: 02/07/2024 15:53 INDICATION: Left lower quadrant abdominal pain TECHNIQUE: Computed tomography (CT) of the abdomen and pelvis was performed with 100 mL Omnipaque-350 intravenous contrast. Automated exposure control and iterative reconstruction technique were employe d. The dose-length product was 428.17 mGy-cm. COMPARISON: 02/02/2024 FINDINGS: Lung bases are clear. Heart size is normal. No pericardial or pleural effusion. A couple cysts in the left hepatic lobe measuring up to 1.4 cm. Multiple calcified gallstones filling the decompressed gal lbladder. Small splenic calcific location consistent with old granulomatous disease. Pancreas, bilate ral adrenal glands and kidneys are normal. Small bowel and appendix are normal. Mild sigmoid colon predominant diverticulosis. There is prominent wall thickening and inflammatory st randing along the proximal sigmoid colon with small collection of extraluminal gas surrounding more c ephalad along the mesenteric fat. There is a second very small collection of gas and fluid situated w ithin the more caudal mesenteric fat between the sigmoid colon and the adjacent dome of the bladder. There is focal bladder wall thickening along the dome of the bladder with a tiny focus of intralumina l gas within the bladder suspicious for secondary colovesical fistula. Prostatomegaly measuring 6.0 x 4.7 cm. Small fat-containing left inguinal hernia. Multiple small lymp h nodes within the sigmoid mesentery which are normal sized with more prominent and numerous than typ ical and likely reactive. No pathologically enlarged abdominal or pelvic lymphadenopathy. Mild lumbar dextrocurvature. IMPRESSION: 1. Constellation of findings consistent with sigmoid diverticulitis and secondary colovesical fistula formation. Correlate with urinalysis. If not recently performed would also consider a follow-up colo noscopy when clinically improved to exclude malignancy which could present similarly. 2. Prostatomegaly. 3. Cholelithiasis. Reviewed, dictated and finalized at location [facility]. [facility] IMPRESSION: 1. Constellation of findings consistent with sigmoid diverticulitis and seconda ry colovesical fistula formation. Correlate with urinalysis. If not recently pe rformed would also consider a follow-up colonoscopy when clinically improved to exclude malignancy which could present similarly. 2. Prostatomegaly. 3. Cholelithiasis.
[2024-02-07 13:34] LABS: Basophils Absolute Auto 0.1 K/mm3 (0.0-0.1); Basophils Percent Auto 0.6 % (0.2-1.2); Eosinophils Absolute Auto 0.2 K/mm3 (0-0.3); Eosinophils Percent Auto 1.4 % (0-4.4); Hematocrit 35.2 % (42.0-52.0); Hemoglobin 11.4 g/dL (14.0-18.0); Immature Granulocyte Absolute 0.07 K/mm3 (0.00-0.031); Immature Granulocyte Percent A 0.5 % (0-0.5); Lymphocytes Absolute Auto 1.38 K/mm3 (0.9-3.2); Lymphocytes Percent Auto 10.5 % (18.3-44.2); Mean Corpuscular HGB Conc 32.4 g/dl (32-36); Mean Corpuscular Hemoglobin 30.5 pg (26-34); Mean Corpuscular Volume 94.1 fl (80-100); Mean Platelet Volume 10.5 fl (7.4-10.4); Monocytes Absolute Auto 0.6 K/mm3 (0.1-0.6); Monocytes Percent Auto 4.4 % (2.6-8.5); Neutrophils Absolute Auto 10.9 K/mm3 (1.3-6.7); Neutrophils Percent Auto 82.6 % (45.5-73.1); Platelet Count Result 408 k/mm3 (150-375); Red Blood Count 3.74 M/mm3 (4.6-6.20); Red Cell Distribution Width 13.8 % (11.5-14.5); White Blood Count 13.2 K/mm3 (4.5-10.0)
[2024-02-07 13:47] LABS: Alanine Aminotransferase 23 U/L (6-50); Albumin Level 3.9 g/dL (3.5-5.1); Alkaline Phosphatase 77 U/L (38-126); Anion Gap 7 mmol/L (4-12); Aspartate Amino Transferase 29 U/L (17-59); Bilirubin,Total 0.2 mg/dL (0.2-1.3); Blood Urea Nitrogen 13 mg/dL (9-20); Calcium 9.1 mg/dL (8.4-10.2); Carbon Dioxide 29 mmol/L (22-30); Chloride 105 mmol/L (98-107); Estimated CRCL calculation 69 ml/min; Estimated Glomerular Filt Rate > 60; Glucose 122 mg/dL (65-110); Potassium 4.1 mmol/L (3.4-5.0); Sodium 141 mmol/L (137-145)
[2024-02-07 15:19] LABS: Add Urine Microscopic? YES; Appearance Urine Turbid (Clear); Bacteria Urine 1+ /hpf; Bilirubin Urine Negative (Negative); Blood Urine 1+ (Negative); Color Urine Dark Yellow (Yellow); Glucose Urine UA Negative (Negative); Ketones Urine Negative (Negative); Leukocyte Esterase Ur 3+ LEU/UL (Negative); Need Manual Microscopic Reviewed; Nitrate Urine Negative (Negative); Protein Urine 1+ mg/dL (Negative); RBC Urine 51-100 /hpf (0-2); Specific Grav Ur 1.014 (1.001-1.035); Squamous Epithelial Cell Urine None Seen /hpf (Few); WBC Clumps Urine Present /HPF; WBC Urine >100 /hpf (0-3); pH Urine 7.5 (5.0-9.0)
[2024-02-07 15:39] LABS: Amorphous Sediment Urine Heavy
--- NOTE | 2024-02-07 16:34 | ED.GENADULT ---
HPI - General Adult General Chief complaint: Urogenital-Male Stated complaint: feces coming from penis Time Seen by Provider: 02/07/24 14:39 History of Present Illness HPI narrative: patient is a 63-year-old male who presents ER with abdominal pain and passage of stool in his urine. Patient was recently hospitalized with diverticulitis with known colovesicular fistula. History with IV antibiotics and released yesterday. He had a bowel movement today and developed severe abdominal pain and then began urinating the feces. No fevers or chills or sweats. No blood in urine or stool. No additional concerns. Called his surgeon's office and was directed back to the ER. Related Data Home Medications Medication Instructions Recorded Confirmed esomeprazole magnesium 20 mg 20 mg PO DAILY 03/28/21 02/07/24 capsule,delayed release (Nexium 24HR) multivitamin (Daily Multi-Vitamin 1 tablet PO DAILY 04/09/21 02/07/24 tablet) ciprofloxacin HCl 250 mg tablet 250 mg PO EVERY OTHER DAY 02/07/24 02/07/24 Allergies Allergy/AdvReac Type Severity Reaction Status Date / Time No Known Allergies Allergy Verified 02/07/24 12:41 Review of Systems Review of Systems: All systems reviewed & are unremarkable except as noted in HPI and below Constitutional: Constitutional: Reports no additional constitutional complaints ENT: Reports system reviewed and no additional complaints, except as documented Cardiovascular: Cardiovascular: Reports no additional cardiovascular complaints Respiratory: Respiratory: Reports no additional respiratory complaints Gastrointestinal: Gastrointestinal: Denies constipation, Denies nausea and Denies vomiting Genitourinary: Genitourinary: Denies dysuria, Denies urinary frequency and Denies urinary incontinence Comments: Stool in urine [facility] Past Medical History Medical History (Updated 02/07/24 @ 21:55 by Osvaldo Hall MD) [place]-vesical fistula Diverticulitis Elevated PSA H/O gastroesophageal reflux (GERD) Surgical History Surgical History History of surgery on arm for broken bones History of tonsillectomy Family History Family History Father Lung cancer Mother Ovarian cancer Social History Social History Smoking status: Never smoker Alcohol intake: current Drinks per week: 12 Substance use: never Substance use type: does not use Do You Feel Safe in your Home?: Yes Lack of Transportation: No Lack of Food: Never True Current Housing: I Have Housing Concerned About Future Housing: No Difficulty Paying Gas/Electric Bills: No Difficulty Paying for Meds: No Currently Unemployed: No Education: High School Diploma/GED Difficulty w/ Childcare or Family Care: No Spiritual care concerns: No Course Course Emergency Course: discussed case with General surgery. Admit to hospitalist service. NPO with ice chips. IV antibiotics ordered. Patient wear a diagnosis and treatment plan also discussed lab and imaging findings. Vital Signs Vital signs: Vital Signs Temperature 97.8 F 02/07/24 12:47 Pulse Rate 73 02/07/24 12:47 Respiratory Rate 18 02/07/24 12:47 Blood Pressure 123/75 02/07/24 12:47 Pulse Oximetry 100 02/07/24 12:47 Oxygen Delivery Room Air 02/07/24 12:47 Temperature 98.7 F 02/07/24 21:11 Pulse Rate 71 02/07/24 21:11 Respiratory Rate 16 02/07/24 21:11 Blood Pressure 127/75 02/07/24 21:11 Pulse Oximetry 98 02/07/24 21:11 Oxygen Delivery Room Air 02/07/24 20:00 Medical Decision Making Vital Signs Vital Signs: Vital Signs Temperature 97.8 F 02/07/24 12:47 Pulse Rate 73 02/07/24 12:47 Respiratory Rate 18 02/07/24 12:47 Blood Pressure 123/75 02/07/24 12:47 Pulse Oximetry 100 02/07/24 12:47 Oxygen Delivery Room Air 02/07/24 12:47 Temperature 98.7 F 02/07/24 21:11 Pulse Rate 71 02/07/24 21:11 Respiratory Rate 16 02/07/24 21:11 Blood Pressure 127/75 02/07/24 21:11 Pulse Oximetry 98 02/07/24 21:11 Oxygen Delivery Room Air 02/07/24 20:00 Lab Data 02/07/24 13:26 02/07/24 13:26 Labs: Lab Results 02/07/24 02/07/24 Range/Units 13:26 14:50 WBC 13.2 H (4.5-10.0) K/mm3 RBC 3.74 L (4.6-6.20) M/mm3 Hgb 11.4 L (14.0-18.0) g/dL Hct 35.2 L (42.0-52.0) % MCV 94.1 (80-100) fl MCH 30.5 (26-34) pg MCHC 32.4 (32-36) g/dl RDW 13.8 (11.5-14.5) % Plt Count 408 H (150-375) k/mm3 MPV 10.5 H (7.4-10.4) fl Immature Gran % (Auto) 0.5 (0-0.5) % Neut % (Auto) 82.6 H (45.5-73.1) % Lymph % (Auto) 10.5 L (18.3-44.2) % [place] % (Auto) 4.4 (2.6-8.5) % Eos % (Auto) 1.4 (0-4.4) % Baso % (Auto) 0.6 (0.2-1.2) % Lymph # (Auto) 1.38 (0.9-3.2) K/mm3 [place] # (Auto) 0.6 (0.1-0.6) K/mm3 Eos # (Auto) 0.2 (0-0.3) K/mm3 Baso # (Auto) 0.1 (0.0-0.1) K/mm3 Abs Immat Gran (auto) 0.07 H (0.00-0.031) K/mm3 Absolute Neuts (auto) 10.9 H (1.3-6.7) K/mm3 Absolute Nucleated RBC 0.000 (0.0-0.012) K/mm3 Nucleated RBC % 0.0 (0.0-0.2) % Sodium 141 (137-145) mmol/L Potassium 4.1 (3.4-5.0) mmol/L Chloride 105 (98-107) mmol/L Carbon Dioxide 29 (22-30) mmol/L Anion Gap 7 (4-12) mmol/L BUN 13 D (9-20) mg/dL Creatinine 1.00 (0.7-1.3) mg/dL Estim Creat Clear Calc 69 ml/min Estimated GFR > 60 (59 - ) Glucose 122 H (65-110) mg/dL Calcium 9.1 (8.4-10.2) mg/dL Total Bilirubin 0.2 (0.2-1.3) mg/dL AST 29 (17-59) U/L ALT 23 (6-50) U/L Alkaline Phosphatase 77 (38-126) U/L Total Protein 8.0 (6.3-8.2) g/dL Albumin 3.9 (3.5-5.1) g/dL Urine Color Dark yellow (Yellow) Urine Appearance Turbid H (Clear) Urine pH 7.5 (5.0-9.0) Ur Specific [place] 1.014 (1.001-1.035) Urine Protein 1+ H (Negative) mg/dL Urine Glucose (UA) Negative (Negative) mg/dL Urine Ketones Negative (Negative) mg/dL Ur Blood (Man) 1+ H (Negative) Urine Nitrate Negative (Negative) Urine Bilirubin Negative (Negative) Urine Urobilinogen 1.0 (<2.0) mg/dL Add Ur Microanalysis Reviewed Leukocyte Esterase Rfl 3+ H (Negative) CANDI/UL Urine RBC 51-100 H (0-2) /hpf Urine WBC >100 H (0-3) /hpf Urine WBC Clumps Present H (None) /HPF Ur Squamous Epith Cells None seen (Few) /hpf Amorphous Sediment Heavy H (None) Urine Bacteria 1+ H /hpf Urine Casts 3-5 Imaging Data Radiologist's impression: ITS Impressions Abdomen/Pelvis CT 02/07/24 15:54 IMPRESSION: 1. Constellation of findings consistent with sigmoid diverticulitis and secondary colovesical fistula formation. Correlate with urinalysis. If not recently performed would also consider a follow-up colonoscopy when clinically improved to exclude malignancy which could present similarly. 2. Prostatomegaly. 3. Cholelithiasis. Discharge Plan Discharge Clinical Impression: Diverticulitis of colon with perforation, [place]-vesical fistula Patient Disposition: Still a Patient Condition: Stable
[2024-02-07] MEDS: PIPERACILLN/TAZ 3.375GM/NS50ML 3.375 GM/50 ML BAG IVPB ×2 (16:37→22:01)
--- NOTE | 2024-02-07 18:40 | ADMGEN ---
This patient, [place], was admitted to 2 Medical Room 259-. Patient/family oriented to hospital policies and general routines including ID bracelet, bed and alarms, visiting hours, pain management, procedures, bathroom and other care routines, personal items, smoking policy, room service/diet, and visiting hours. Information on how to activate the Rapid Response Team has been discussed. Patient/Family are encouraged to report perceived risks to care and to ask questions if they do not understand what they are told or what they should do.
[2024-02-07] MEDS: SODIUM CHLORIDE 0.9% IV 1,000 ML 125 ML IV CONT (18:50)
--- NOTE | 2024-02-07 19:40 | P.HP_ITS ---
H&P: HPI History of Present Illness Date/Time: 02/07/24 19:40 Chief Complaint: abdominal pain Narrative: This is a 63-year-old male with no significant past medical history presents to the emergency room after having episode of excruciating lower abdomen pain, feces present in the urine, nausea, fevers, rigors, chills, generalized malaise x2 days duration patient recently discharged home after being treated for acute diverticulitis and rectal bleed. preliminary workup was significant for CT of abdomen and pelvis with colo vesicular fistula and perforated diverticuli. Patient has been admitted for further evaluation management and treatment. EXAMINATION: CT abdomen pelvis w con DATE: 02/07/2024 15:53 INDICATION: Left lower quadrant abdominal pain TECHNIQUE: Computed tomography (CT) of the abdomen and pelvis was performed with 100 mL Omnipaque-350 intravenous contrast. Automated exposure control and iterative reconstruction technique were employed. The dose-length product was 428.17 mGy-cm. COMPARISON: 02/02/2024 FINDINGS: Lung bases are clear. Heart size is normal. No pericardial or pleural effusion. A couple cysts in the left hepatic lobe measuring up to 1.4 cm. Multiple calcified gallstones filling the decompressed gallbladder. Small splenic calcific location consistent with old granulomatous disease. Pancreas, bilateral adrenal glands and kidneys are normal. Small bowel and appendix are normal. Mild sigmoid colon predominant diverticulosis. There is prominent wall thickening and inflammatory stranding along the proximal sigmoid colon with small collection of extraluminal gas surrounding more cephalad along the mesenteric fat. There is a second very small collection of gas and fluid situated within the more caudal mesenteric fat between the sigmoid colon and the adjacent dome of the bladder. There is focal bladder wall thickening along the dome of the bladder with a tiny focus of intraluminal gas within the bladder suspicious for secondary colovesical fistula. Prostatomegaly measuring 6.0 x 4.7 cm. Small fat-containing left inguinal hernia. Multiple small lymph nodes within the sigmoid mesentery which are normal sized with more prominent and numerous than typical and likely reactive. No pathologically enlarged abdominal or pelvic lymphadenopathy. Mild lumbar dextrocurvature. IMPRESSION: 1. Constellation of findings consistent with sigmoid diverticulitis and secondary colovesical fistula formation. Correlate with urinalysis. If not recently performed would also consider a follow-up colonoscopy when clinically improved to exclude malignancy which could present similarly. 2. Prostatomegaly. 3. Cholelithiasis. Review of Systems Review of Systems: abdominal pain, urinating stool, fevers, rigors, chills, night sweats, nausea. [facility] Past Medical History Medical History (Updated 02/07/24 @ 21:55 by Osvaldo Hall MD) [place]-vesical fistula Diverticulitis Elevated PSA H/O gastroesophageal reflux (GERD) Surgical History Surgical History History of surgery on arm for broken bones History of tonsillectomy Family History Family History Father Lung cancer Mother Ovarian cancer Social History Social History Smoking status: Never smoker Alcohol intake: current Drinks per week: 12 Substance use: never Substance use type: does not use Do You Feel Safe in your Home?: Yes Lack of Transportation: No Lack of Food: Never True Current Housing: I Have Housing Concerned About Future Housing: No Difficulty Paying Gas/Electric Bills: No Difficulty Paying for Meds: No Currently Unemployed: No Education: High School Diploma/GED Difficulty w/ Childcare or Family Care: No Spiritual care concerns: No Meds Home Medications and Allergies Home Medications Medication Instructions Recorded Confirmed Type esomeprazole magnesium 20 mg 20 mg PO DAILY 03/28/21 02/07/24 History capsule,delayed release (Nexium 24HR) multivitamin (Daily Multi-Vitamin 1 tablet PO DAILY 04/09/21 02/07/24 History tablet) polysaccharide iron complex 150 mg 150 mg PO DAILY@0800 #30 caps 02/06/24 02/07/24 Rx iron capsule ciprofloxacin HCl 250 mg tablet 250 mg PO EVERY OTHER DAY 02/07/24 02/07/24 History Allergies Allergy/AdvReac Type Severity Reaction Status Date / Time No Known Allergies Allergy Verified 02/07/24 12:41 Vital Signs Vital Signs - 24 hr 02/07/24 12:47 02/07/24 14:48 02/07/24 15:33 Temperature 97.8 F Pulse Rate 73 72 68 Respiratory Rate 18 15 13 Blood Pressure 123/75 144/83 H 135/79 Pulse Oximetry 100 100 100 Oxygen Delivery Room Air 02/07/24 16:25 02/07/24 17:08 02/07/24 18:28 Temperature 97.4 F L Pulse Rate 72 68 69 Respiratory Rate 16 15 18 Blood Pressure 128/81 138/81 134/77 Pulse Oximetry 98 100 100 Oxygen Delivery 02/07/24 18:50 Temperature 97.6 F Pulse Rate 71 Respiratory Rate 18 Blood Pressure 151/80 H Pulse Oximetry 100 Oxygen Delivery Exam Narrative: Patient is laying in bed Const: General: comfortable, no acute distress, well developed, alert, awake and average body habitus Nutritional Appearance: average body habitus Orientation/consciousness: patient oriented x3 Other: well-appearing HENMT: Head: normal to inspection, normocephalic and atraumatic Ears: hearing grossly normal bilaterally Face/Nose/Sinus: normal facial exam Face and sinus: normal facial exam Eyes: General: appearance normal, both eyes and all related structures Pupils: Equal, round and reactive pupils present EOM: EOMs intact bilaterally Neck: Neck: full ROM, no lymphadenopathy and no JVD Thyroid: thyroid normal Lymphatic: no lymphadenopathy noted Resp: Effort & Inspection: normal respiratory effort and able to speak in complete sentences Auscultation: clear to auscultation bilaterally Cardio: Jugular venous distension: no JVD Rate: regular rate Rhythm: regular rhythm Heart sounds: S1 normal heart sound present and S2 normal heart sound present GI: Inspection: normal to inspection, no visible herniation and no visible pulsation GI Palp: Yes Soft to palpation, Yes Tenderness to palpation present (GI) ( left lower quadrant), Yes No hepatosplenomegaly present and No Rebound tenderness present : General: Yes deferred Skin: Rashes: no rashes Wounds: no wounds Neuro: General: patient oriented x3 and CN's II-XI intact bilaterally Cranial nerves: Yes CN's II-XII intact bilaterally and Yes Equal, round and reactive pupils present Cognition (Neuro): normal cognition Speech: normal speech Gait exam (Neuro): Normal gait present Motor exam (neuro): 5/5 motor strength present throughout Extrem: General: normal to inspection, full ROM, no joint enlargement and no pedal edema H&P: Results Labs Labs: Short CBC 02/07/24 Range/Units 13:26 WBC 13.2 H (4.5-10.0) K/mm3 Hgb 11.4 L (14.0-18.0) g/dL Hct 35.2 L (42.0-52.0) % Plt Count 408 H (150-375) k/mm3 BMP 02/07/24 13:26 Sodium 141 Potassium 4.1 Chloride 105 Carbon Dioxide 29 BUN 13 D Creatinine 1.00 Glucose 122 H Calcium 9.1 Liver Function 02/07/24 Range/Units 13:26 Total Bilirubin 0.2 (0.2-1.3) mg/dL AST 29 (17-59) U/L ALT 23 (6-50) U/L Alkaline Phosphatase 77 (38-126) U/L Albumin 3.9 (3.5-5.1) g/dL Urine 02/07/24 Range/Units 14:50 Urine Color Dark yellow (Yellow) Urine Appearance Turbid H (Clear) Urine pH 7.5 (5.0-9.0) Ur Specific [place] 1.014 (1.001-1.035) Urine Protein 1+ H (Negative) mg/dL Urine Glucose (UA) Negative (Negative) mg/dL Assessment and Plan Assessment and plan (1) Diverticulitis of colon with perforation: Code(s): K57.20 - Diverticulitis of large intestine with perforation and abscess without bleeding Status: Acute (2) [place]-vesical fistula: Code(s): N32.1 - Vesicointestinal fistula Status: Acute Hospitalist MIPS Advance Care Plan I have confirmed that the patient's Advanced Care Plan is present, code status is documented, or surrogate decision maker is listed in patient medical record.: Yes Medication Reconciliation I have utilized all available resources to obtain, update and review the patients current medications (includes all prescriptions, OTC, herbals, cannabis, and nutritional supplements).: Yes
--- NOTE | 2024-02-07 19:53 | PC.NURSE ---
Pt refusing to answer admission questions. Charge nurse notified.
[2024-02-07] MEDS: ACETAMINOPHEN 500 MG TABLET 1000 MG PO (21:58)
[2024-02-08] MEDS: SODIUM CHLORIDE 0.9% IV 1,000 ML 125 ML IV CONT ×3 (03:18→21:26)
[2024-02-08] MEDS: PIPERACILLN/TAZ 3.375GM/NS50ML 3.375 GM/50 ML BAG IVPB ×4 (05:33→23:36)
[2024-02-08 05:41] VITALS: BP 120/64; PULSE 64; RESP 16; TEMP 36.6; O2SAT 100
[2024-02-08] MEDS: PANTOPRAZOLE SODIUM IV 40 MG VIAL IV PUSH ×2 (08:31→20:32)
[2024-02-08 10:58] LABS: Hematocrit 31.2 % (42.0-52.0); Hemoglobin 10.1 g/dL (14.0-18.0); Mean Corpuscular HGB Conc 32.4 g/dl (32-36); Mean Corpuscular Hemoglobin 30.5 pg (26-34); Mean Corpuscular Volume 94.3 fl (80-100); Mean Platelet Volume 10.3 fl (7.4-10.4); Platelet Count Result 335 k/mm3 (150-375); Red Blood Count 3.31 M/mm3 (4.6-6.20); Red Cell Distribution Width 13.9 % (11.5-14.5); White Blood Count 10.1 K/mm3 (4.5-10.0)
[2024-02-08 11:15] LABS: Alanine Aminotransferase 19 U/L (6-50); Albumin Level 3.3 g/dL (3.5-5.1); Alkaline Phosphatase 72 U/L (38-126); Anion Gap 5 mmol/L (4-12); Aspartate Amino Transferase 23 U/L (17-59); Bilirubin,Total 0.4 mg/dL (0.2-1.3); Blood Urea Nitrogen 10 mg/dL (9-20); Calcium 8.3 mg/dL (8.4-10.2); Carbon Dioxide 27 mmol/L (22-30); Chloride 108 mmol/L (98-107); Estimated CRCL calculation 76 ml/min; Estimated Glomerular Filt Rate > 60; Glucose 92 mg/dL (65-110); Potassium 4.1 mmol/L (3.4-5.0); Sodium 140 mmol/L (137-145)
--- NOTE | 2024-02-08 11:15 | PM.CNGS ---
Assessment and Plan Assessment and plan (1) Diverticulitis of colon with perforation: Code(s): K57.20 - Diverticulitis of large intestine with perforation and abscess without bleeding Status: Acute Assessment and Plan: Patient treated with 5 days of IV antibiotics for perforated diverticulitis with a colovesical fistula and returned to the ER within 48 hours with abdominal pain and recurrent evidence of a fistula. CT scan again is showing evidence of sigmoid diverticulitis with a colovesical fistula and a small collection of extraluminal gas and another very small collection of fluid and gas between the sigmoid colon and dome of the bladder. There doesn't appear to be any larger fluid collection that would require percutaneous drainage. We would recommend to treat this conservatively with IV antibiotics and bowel rest. Continue IV fluids while NPO. I discussed with the patient that we may take his diet advancement slow since he returned with recurrent symptoms so quickly after discharge. We also discussed that ultimately if he does not improve with conservative measures, then he could still require surgical intervention in the acute phase that typically requires a colostomy for fecal diversion, but we try to avoid this if possible. (2) [place]-vesical fistula: Code(s): N32.1 - Vesicointestinal fistula Status: Acute Assessment and Plan: CT still shows evidence of a colovesical fistula. UA grossly abnormal with foul smelling feculent-appearing urine. Continue IV antibiotics. See plan above. (3) Anemia: Qualifiers: Anemia type: unspecified type Qualified Code(s): D64.9 - Anemia, unspecified Code(s): D64.9 - Anemia, unspecified Status: Acute Assessment and Plan: Anemia noted on previous hospitalization and discharged with iron supplements. Hgb stable. No blood in stools. Continue to monitor. Plan I have discussed the patient's case and plan of care with Dr. Landeros. Thank you for allowing us to see the patient in consultation and we will continue to follow along with you. History of Present Illness Consult details Consult date: 02/08/24 Reason for consult: other (Diverticulitis, colovesicular fistula) Requesting physician: Osvaldo Hall MD Narrative: This is a 63-year-old man who is known to our service from a recent admission for sigmoid diverticulitis with microperforation and colovesical fistula. He was treated conservatively with IV antibiotics for 5 days and clinically improved. He was discharged home on 02/06/2024. He reports feeling well with no abdominal pain up until yesterday. He was outside helping his son winterize his camper and went back inside to rest. Once he got inside, he had a sudden onset of severe LLQ abdominal pain. He became diaphoretic and felt like he was going to pass out, so he called his . She came and sat with him and he reports the pain subsided after only 5 minutes. Once the pain improved, he felt back to his baseline. He reports he has been moving his bowels normally since discharge, although still loose. After his episode of pain, he urinated and had foul-smelling feculent-appearing urine. This was similar to what had occurred prior to his last hospitalization. This continued with a few voids and he then decided to come back into the ER for evaluation. Labs showed his WBC count was 8.6 on discharge two days ago and went up to 13.2 yesterday. Hgb still stable at 11, which he was discharged with iron. CT scan of the abdomen and pelvis showed sigmoid diverticulitis with a small collection of extraluminal gas surrounding more cephalad along the mesenteric fat and a second very small fluid and gas between the sigmoid colon and dome of the bladder, as well as CT evidence of a colovesical fistula. He was admitted and started on IV antibiotics. He reports having a weight loss of almost 30 lbs total in the past year and a half. He initially tried to lose weight with lifestyle changes and lost 15 lbs, but over the past week or two he has lost another 10-15 lbs with his acute illness. No blood in his stools. He was scheduled for a colonoscopy when he was admitted last week, which he had cancelled. No other changes since his last hospitalization. I did ask the patient about taking oral antibiotics after his discharge, he reports they were ordered for Q48H, so he never had a dose once he left. In review of his chart, it does appear he was only sent home with ciprofloxacin 250 mg every other day. Review of Systems Review of Systems: All systems reviewed & are unremarkable except as noted in HPI and below PMFSH Past Medical History Medical History [place]-vesical fistula Diverticulitis Elevated PSA H/O gastroesophageal reflux (GERD) Surgical History Surgical History History of surgery on arm for broken bones History of tonsillectomy Family History Family History Father Lung cancer Mother Ovarian cancer Social History Social History Smoking status: Never smoker Alcohol intake: current Drinks per week: 12 Substance use: never Substance use type: does not use Do You Feel Safe in your Home?: Yes Lack of Transportation: No Lack of Food: Never True Current Housing: I Have Housing Concerned About Future Housing: No Difficulty Paying Gas/Electric Bills: No Difficulty Paying for Meds: No Currently Unemployed: No Education: High School Diploma/GED Difficulty w/ Childcare or Family Care: No Spiritual care concerns: No Meds Home Medications and Allergies Home Medications Medication Instructions Recorded Confirmed Type esomeprazole magnesium 20 mg 20 mg PO DAILY 03/28/21 02/07/24 History capsule,delayed release (Nexium 24HR) multivitamin (Daily Multi-Vitamin 1 tablet PO DAILY 04/09/21 02/07/24 History tablet) polysaccharide iron complex 150 mg 150 mg PO DAILY@0800 #30 caps 02/06/24 02/07/24 Rx iron capsule ciprofloxacin HCl 250 mg tablet 250 mg PO EVERY OTHER DAY 02/07/24 02/07/24 History Allergies Allergy/AdvReac Type Severity Reaction Status Date / Time No Known Allergies Allergy Verified 02/07/24 12:41 Vital Signs Vital Signs - 24 hr 02/07/24 12:47 02/07/24 14:48 02/07/24 15:33 Temperature 97.8 F Pulse Rate 73 72 68 Respiratory Rate 18 15 13 Blood Pressure 123/75 144/83 H 135/79 Pulse Oximetry 100 100 100 Oxygen Delivery Room Air 02/07/24 16:25 02/07/24 17:08 02/07/24 18:28 Temperature 97.4 F L Pulse Rate 72 68 69 Respiratory Rate 16 15 18 Blood Pressure 128/81 138/81 134/77 Pulse Oximetry 98 100 100 Oxygen Delivery 02/07/24 18:50 02/07/24 21:11 02/07/24 20:00 Temperature 97.6 F 98.7 F Pulse Rate 71 71 Respiratory Rate 18 16 Blood Pressure 151/80 H 127/75 Pulse Oximetry 100 98 Oxygen Delivery Room Air 02/08/24 05:41 02/08/24 08:30 Temperature 97.9 F Pulse Rate 64 Respiratory Rate 16 Blood Pressure 120/64 Pulse Oximetry 100 Oxygen Delivery Room Air Exam Const: General: comfortable and no acute distress Nutritional Appearance: average body habitus Orientation/consciousness: patient oriented x3 HENMT: Head: normocephalic and atraumatic Ears: hearing grossly normal bilaterally Mouth: Yes moist mucous membranes Eyes: General: appearance normal, both eyes and all related structures Pupils: Equal, round and reactive pupils present Neck: Neck: normal visual inspection and full ROM Resp: Effort & Inspection: no respiratory distress Auscultation: clear to auscultation bilaterally Cardio: Rate: regular rate Rhythm: regular rhythm Heart sounds: S1 normal heart sound present and S2 normal heart sound present Peripheral pulses: Peripheral pulses 2+ throughout GI: Inspection: non-distended GI Palp: Yes Soft to palpation (other than an inflammatory mass in the LLQ), Yes Tenderness to palpation present (GI) (lower abdominal tenderness most focally in the LLQ), No Guarding due to palpation present (GI), Yes No hepatosplenomegaly present, Yes Hernia present (small soft reducible umbilical hernia) and No Rebound tenderness present Auscultation: normal bowel sounds Skin: General skin exam: normal color Neuro: General: moves all extremities and no focal motor deficits Speech: normal speech Motor exam (neuro): 5/5 motor strength present throughout Extrem: General: normal to inspection and no edema Psych: Mental Status: mental status grossly normal Attitude: cooperative Insight: Good insight present (Psych) Judgement: Good judgement present (Psych) Results Labs 02/08/24 10:52 02/07/24 13:26 Labs: Abnormal lab results 02/07/24 02/07/24 02/08/24 Range/Units 13:26 14:50 10:52 WBC 13.2 H 10.1 H (4.5-10.0) K/mm3 RBC 3.74 L 3.31 L (4.6-6.20) M/mm3 Hgb 11.4 L 10.1 L (14.0-18.0) g/dL Hct 35.2 L 31.2 L (42.0-52.0) % Plt Count 408 H (150-375) k/mm3 MPV 10.5 H (7.4-10.4) fl Neut % (Auto) 82.6 H (45.5-73.1) % Lymph % (Auto) 10.5 L (18.3-44.2) % Abs Immat Gran (auto) 0.07 H (0.00-0.031) K/mm3 Absolute Neuts (auto) 10.9 H (1.3-6.7) K/mm3 Glucose 122 H (65-110) mg/dL Urine Appearance Turbid H (Clear) Urine Protein 1+ H (Negative) mg/dL Ur Blood (Man) 1+ H (Negative) Leukocyte Esterase Rfl 3+ H (Negative) CANDI/UL Urine RBC 51-100 H (0-2) /hpf Urine WBC >100 H (0-3) /hpf Urine WBC Clumps Present H (None) /HPF Amorphous Sediment Heavy H (None) Urine Bacteria 1+ H /hpf Diabetes panel 02/07/24 Range/Units 13:26 Sodium 141 (137-145) mmol/L Potassium 4.1 (3.4-5.0) mmol/L Chloride 105 (98-107) mmol/L Carbon Dioxide 29 (22-30) mmol/L BUN 13 D (9-20) mg/dL Creatinine 1.00 (0.7-1.3) mg/dL Glucose 122 H (65-110) mg/dL Calcium 9.1 (8.4-10.2) mg/dL AST 29 (17-59) U/L ALT 23 (6-50) U/L Alkaline Phosphatase 77 (38-126) U/L Total Protein 8.0 (6.3-8.2) g/dL Albumin 3.9 (3.5-5.1) g/dL Calcium panel 02/07/24 Range/Units 13:26 Calcium 9.1 (8.4-10.2) mg/dL Albumin 3.9 (3.5-5.1) g/dL Pituitary panel 02/07/24 Range/Units 13:26 Sodium 141 (137-145) mmol/L Potassium 4.1 (3.4-5.0) mmol/L Chloride 105 (98-107) mmol/L Carbon Dioxide 29 (22-30) mmol/L BUN 13 D (9-20) mg/dL Creatinine 1.00 (0.7-1.3) mg/dL Glucose 122 H (65-110) mg/dL Calcium 9.1 (8.4-10.2) mg/dL Adrenal panel 02/07/24 Range/Units 13:26 Sodium 141 (137-145) mmol/L Potassium 4.1 (3.4-5.0) mmol/L Chloride 105 (98-107) mmol/L Carbon Dioxide 29 (22-30) mmol/L BUN 13 D (9-20) mg/dL Creatinine 1.00 (0.7-1.3) mg/dL Glucose 122 H (65-110) mg/dL Calcium 9.1 (8.4-10.2) mg/dL Total Bilirubin 0.2 (0.2-1.3) mg/dL AST 29 (17-59) U/L ALT 23 (6-50) U/L Alkaline Phosphatase 77 (38-126) U/L Total Protein 8.0 (6.3-8.2) g/dL Albumin 3.9 (3.5-5.1) g/dL All other labs normal. Imaging Additional studies: ITS Impressions Abdomen/Pelvis CT 02/07/24 15:54 IMPRESSION: 1. Constellation of findings consistent with sigmoid diverticulitis and secondary colovesical fistula formation. Correlate with urinalysis. If not recently performed would also consider a follow-up colonoscopy when clinically improved to exclude malignancy which could present similarly. 2. Prostatomegaly. 3. Cholelithiasis.
[2024-02-08 14:00] VITALS: BP 141/73; PULSE 71; RESP 16; TEMP 37.1; O2SAT 100
--- NOTE | 2024-02-08 14:39 | P.PNIM_ITS ---
Progress Note: A&P Assessment and Plan (1) Diverticulitis of colon with perforation: Code(s): K57.20 - Diverticulitis of large intestine with perforation and abscess without bleeding Status: Acute Assessment and Plan: Patient discharged 2 days prior with same symptoms ABX prescribed Q48hr returns with return of symptoms and leukocytosis * CT :IMPRESSION: Constellation of findings consistent with sigmoid diverticulitis and secondary colovesical fistula formation. Correlate with urinalysis. If not recently performed would also consider a follow-up colonoscopy when clinically improved to exclude malignancy which could present similarly. 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 Surgery has been consulted and is following will continue to monitor patient's leukocytosis once able to advance diet Time Spent With Patient Time with patient: 15 - 25 minutes Subjective Date/time seen: 02/08/24 14:39 Interval history: Patient is a 63-year-old male who was admitted for further evaluation and treatment for diverticulitis and a Vesicointestinal fistula. 02/08/2024: assumed Care Patient up walking feeling better but still reporting ABD pain, urine improving with less feculent appearing urine. Patient denied fever, chills, dizziness wanting to try jello. Review of Systems Review of Systems: abdominal pain, urinating stool, All systems reviewed & are unremarkable except as noted in HPI and below Exam Narrative: * GENERAL: Alert and oriented x 3. No acute distress. * Eyes: PERRLA. * HEENT: Moist mucous membranes. * LUNGS: Clear to auscultation bilaterally. No accessory muscle use. * CARDIOVASCULAR: Regular rate and rhythm. No murmur. S1-S2 * ABDOMEN: Soft, tenderness and non-distended. * EXTREMITIES: No edema. Non-tender * SKIN: No rashes or lesions. Skin warm, dry. * NEUROLOGIC: No focal neurological deficits. CN II-XII grossly intact Objective Data Vital Signs Vital Signs: Vital Signs - 24 hr 02/07/24 14:48 02/07/24 15:33 02/07/24 16:25 Temperature Pulse Rate 72 68 72 Respiratory Rate 15 13 16 Blood Pressure 144/83 H 135/79 128/81 Pulse Oximetry 100 100 98 Oxygen Delivery 02/07/24 17:08 02/07/24 18:28 02/07/24 18:50 Temperature 97.4 F L 97.6 F Pulse Rate 68 69 71 Respiratory Rate 15 18 18 Blood Pressure 138/81 134/77 151/80 H Pulse Oximetry 100 100 100 Oxygen Delivery 02/07/24 21:11 02/07/24 20:00 02/08/24 05:41 Temperature 98.7 F 97.9 F Pulse Rate 71 64 Respiratory Rate 16 16 Blood Pressure 127/75 120/64 Pulse Oximetry 98 100 Oxygen Delivery Room Air 02/08/24 08:30 Temperature Pulse Rate Respiratory Rate Blood Pressure Pulse Oximetry Oxygen Delivery Room Air Intake/Output Intake/Output: Intake & Output 02/05/24 02/06/24 02/07/24 02/08/24 23:59 23:59 23:59 23:59 Intake Total 100 2100 Balance 100 2100 Meds/Results Medications: Active Medications Generic Name Dose Route Start Last Admin Trade Name Freq PRN Reason Stop Dose Admin Acetaminophen 1,000 mg 02/07/24 21:46 02/07/24 21:58 Acetaminophen 500 Mg Tablet PO 1,000 mg Q6H PRN Administration Mild Pain (1-3) or Fever Diphenhydramine HCl 25 mg 02/08/24 11:15 Diphenhydramine Hcl Cap 25 Mg Capsule PO QHS PRN Insomnia Hydromorphone HCl 1 mg 02/08/24 02:24 Hydromorphone Hcl Inj (*Crx) 1 Mg/Ml Syr IV PUSH Q3H PRN Pain Rated 7-10 Piperacillin/Tazobactam/Dextrose 3.375 gm in 50 mls @ 100 mls/hr 02/07/24 23:00 02/08/24 12:00 Zosyn 3.375 Gm/Ns 50 Ml IVPB Infused Q6HR YULIA Infusion Sodium Chloride 1,000 mls @ 125 mls/hr 02/07/24 17:35 02/08/24 11:30 Normal Saline Iv IV CONT 125 mls/hr .Q8H YULIA Administration Ibuprofen 800 mg in 200 mls @ 400 mls/hr 02/08/24 11:15 Caldolor 800 Mg/200 Ml IVPB Q6H PRN Pain Rated 4-6 Ondansetron HCl 4 mg 02/08/24 02:24 Ondansetron Inj 4 Mg/2 Ml Vial IV PUSH Q6H PRN Nausea And Vomiting Pantoprazole Sodium 40 mg 02/08/24 09:00 02/08/24 08:31 Pantoprazole Sodium Iv 40 Mg Vial IV PUSH 40 mg Q12HR YULIA Administration Radiology Results: ITS Impressions Abdomen/Pelvis CT 02/07/24 15:54 IMPRESSION: 1. Constellation of findings consistent with sigmoid diverticulitis and secondary colovesical fistula formation. Correlate with urinalysis. If not recently performed would also consider a follow-up colonoscopy when clinically improved to exclude malignancy which could present similarly. 2. Prostatomegaly. 3. Cholelithiasis. Labs Labs: Laboratory Results - last 24 hr 02/07/24 02/08/24 14:50 10:52 WBC 10.1 H RBC 3.31 L Hgb 10.1 L Hct 31.2 L MCV 94.3 MCH 30.5 MCHC 32.4 RDW 13.9 Plt Count 335 MPV 10.3 Sodium 140 Potassium 4.1 Chloride 108 H Carbon Dioxide 27 Anion Gap 5 BUN 10 Creatinine 0.90 Estim Creat Clear Calc 76 Estimated GFR > 60 Glucose 92 Calcium 8.3 L Total Bilirubin 0.4 AST 23 ALT 19 Alkaline Phosphatase 72 Total Protein 7.0 Albumin 3.3 L Urine Color Dark yellow Urine Appearance Turbid H Urine pH 7.5 Ur Specific [place] 1.014 Urine Protein 1+ H Urine Glucose (UA) Negative Urine Ketones Negative Ur Blood (Man) 1+ H Urine Nitrate Negative Urine Bilirubin Negative Urine Urobilinogen 1.0 Add Ur Microanalysis Reviewed Leukocyte Esterase Rfl 3+ H Urine RBC 51-100 H Urine WBC >100 H Urine WBC Clumps Present H Ur Squamous Epith Cells None seen Amorphous Sediment Heavy H Urine Bacteria 1+ H Urine Casts 3-5 Quality VTE Prophylaxis VTE prophylaxis: mechanical ordered -Patient's previous records reviewed on admission -ER notes reviewed in detail on admission -discussed all findings and current treatment plan with patient/Family/POA -Consultations reviewed for recommendations -Patient's disposition for safe discharge discussed with pillowcase cutter Dictation performed by [id number] direct speech recognition software, therefore sas bi developer variants and typographical errors may occur. Hospitalist MIPS Advance Care Plan I have confirmed that the patient's Advanced Care Plan is present, code status is documented, or surrogate decision maker is listed in patient medical record.: Yes Medication Reconciliation I have utilized all available resources to obtain, update and review the patients current medications (includes all prescriptions, OTC, herbals, cannabis, and nutritional supplements).: Yes The patient is not eligible for med reconciliation; the patient is in a emergent medical situation where delaying treatment would jeopardize the patients health.: No
[2024-02-08] MEDS: IBUPROFEN IV 800 MG/200 ML 800 MG/200 ML BAG 400 MG IVPB (17:43)
[2024-02-08 21:30] VITALS: BP 133/71; PULSE 63; RESP 18; TEMP 36.8; O2SAT 99
[2024-02-08] MEDS: diphenhydrAMINE HCl CAP 25 MG CAPSULE PO (22:19)
[2024-02-09] MEDS: PIPERACILLN/TAZ 3.375GM/NS50ML 3.375 GM/50 ML BAG IVPB ×4 (05:42→23:58)
[2024-02-09] MEDS: SODIUM CHLORIDE 0.9% IV 1,000 ML 125 ML IV CONT (05:42)
[2024-02-09 06:00] VITALS: BP 112/60; PULSE 65; RESP 16; TEMP 36.6; O2SAT 98
[2024-02-09 06:20] LABS: Hematocrit 32.5 % (42.0-52.0); Hemoglobin 10.2 g/dL (14.0-18.0); Mean Corpuscular HGB Conc 31.4 g/dl (32-36); Mean Corpuscular Hemoglobin 29.7 pg (26-34); Mean Corpuscular Volume 94.8 fl (80-100); Mean Platelet Volume 10.7 fl (7.4-10.4); Platelet Count Result 345 k/mm3 (150-375); Red Blood Count 3.43 M/mm3 (4.6-6.20); White Blood Count 10.1 K/mm3 (4.5-10.0)
[2024-02-09 08:03] LABS: Anion Gap 4 mmol/L (4-12); Blood Urea Nitrogen 7 mg/dL (9-20); CRP 5.2 mg/dL (<1.0); Calcium 8.3 mg/dL (8.4-10.2); Carbon Dioxide 27 mmol/L (22-30); Chloride 107 mmol/L (98-107); Estimated CRCL calculation 85 ml/min; Estimated Glomerular Filt Rate > 60; Glucose 89 mg/dL (65-110); Potassium 3.6 mmol/L (3.4-5.0); Sodium 138 mmol/L (137-145)
[2024-02-09] MEDS: PANTOPRAZOLE SODIUM IV 40 MG VIAL IV PUSH ×2 (08:54→20:54)
[2024-02-09 09:14] VITALS: O2SAT 100
[2024-02-09 09:42] LABS: Carcinoembryonic Antigen 1.2 ng/mL (0.0-3.0)
--- NOTE | 2024-02-09 12:29 | P.PNGS_ITS ---
Progress Note: A&P Assessment and Plan (1) Diverticulitis: Code(s): K57.92 - Diverticulitis of intestine, part unspecified, without perforation or abscess without bleeding Status: Acute Assessment and Plan: * Advance to full liquids today. Continue Zosyn. Repeat labs in AM. * Will likely need director long term care antibiotics to suppress any recurrent UTI formation. Will also need to see Urology as outpatient prior to proceeding with sigmoid colon resection. 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 Still having some dark urine. No fevers. Exam GI: Inspection: non-distended GI Palp: Yes Tenderness to palpation present (GI) (LLQ), No Guarding due to palpation present (GI), Yes Palpable mass present (suprapubic/LLQ) and No Rebound tenderness present Objective Data Vital Signs Vital Signs: Vital Signs - 24 hr 02/08/24 14:00 02/08/24 20:00 02/08/24 21:30 Temperature 98.8 F 98.3 F Pulse Rate 71 63 Respiratory Rate 16 18 Blood Pressure 141/73 H 133/71 Pulse Oximetry 100 99 Oxygen Delivery Room Air 02/09/24 06:00 02/09/24 09:14 02/09/24 08:50 Temperature 97.9 F Pulse Rate 65 Respiratory Rate 16 Blood Pressure 112/60 Pulse Oximetry 98 100 Oxygen Delivery Room Air Room Air Intake/Output Intake/Output: Intake & Output 02/06/24 02/07/24 02/08/24 02/09/24 23:59 23:59 23:59 23:59 Intake Total 100 3590 1924 Balance 100 3590 1924 Meds/Results Medications: Active Medications Generic Name Dose Route Start Last Admin Trade Name Freq PRN Reason Stop Dose Admin Acetaminophen 1,000 mg 02/07/24 21:46 02/07/24 21:58 Acetaminophen 500 Mg Tablet PO 1,000 mg Q6H PRN Administration Mild Pain (1-3) or Fever Diphenhydramine HCl 25 mg 02/08/24 11:15 02/08/24 22:19 Diphenhydramine Hcl Cap 25 Mg Capsule PO 25 mg QHS PRN Administration Insomnia Hydromorphone HCl 1 mg 02/08/24 02:24 Hydromorphone Hcl Inj (*Crx) 1 Mg/Ml Syr IV PUSH Q3H PRN Pain Rated 7-10 Piperacillin/Tazobactam/Dextrose 3.375 gm in 50 mls @ 100 mls/hr 02/07/24 23:00 02/09/24 06:12 Zosyn 3.375 Gm/Ns 50 Ml IVPB Infused Q6HR YULIA Infusion Sodium Chloride 1,000 mls @ 125 mls/hr 02/07/24 17:35 02/09/24 05:42 Normal Saline Iv IV CONT 125 mls/hr .Q8H YULIA Administration Ibuprofen 800 mg in 200 mls @ 400 mls/hr 02/08/24 11:15 02/08/24 19:22 Caldolor 800 Mg/200 Ml IVPB Infused Q6H PRN Infusion Pain Rated 4-6 Ondansetron HCl 4 mg 02/08/24 02:24 Ondansetron Inj 4 Mg/2 Ml Vial IV PUSH Q6H PRN Nausea And Vomiting Pantoprazole Sodium 40 mg 02/08/24 09:00 02/09/24 08:54 Pantoprazole Sodium Iv 40 Mg Vial IV PUSH 40 mg Q12HR YULIA Administration Radiology Results: ITS Impressions Abdomen/Pelvis CT 02/07/24 15:54 IMPRESSION: 1. Constellation of findings consistent with sigmoid diverticulitis and secondary colovesical fistula formation. Correlate with urinalysis. If not recently performed would also consider a follow-up colonoscopy when clinically improved to exclude malignancy which could present similarly. 2. Prostatomegaly. 3. Cholelithiasis. Labs Labs: Laboratory Results - last 24 hr 02/09/24 02/09/24 06:05 06:06 WBC 10.1 H RBC 3.43 L Hgb 10.2 L Hct 32.5 L MCV 94.8 MCH 29.7 MCHC 31.4 L RDW 14.0 Plt Count 345 MPV 10.7 H Sodium 138 Potassium 3.6 Chloride 107 Carbon Dioxide 27 Anion Gap 4 BUN 7 L Creatinine 0.80 Estim Creat Clear Calc 85 Estimated GFR > 60 Glucose 89 Calcium 8.3 L C-Reactive Protein 5.2 H Carcinoembryonic Ag 1.2
[2024-02-09 14:00] VITALS: BP 128/74; PULSE 68; RESP 17; TEMP 36.5; O2SAT 98
--- NOTE | 2024-02-09 14:17 | P.PNIM_ITS ---
Progress Note: A&P Assessment and Plan (1) Diverticulitis of colon with perforation: Code(s): K57.20 - Diverticulitis of large intestine with perforation and abscess without bleeding Status: Acute Assessment and Plan: Patient discharged 2 days prior with same symptoms ABX prescribed Q48hr returns with return of symptoms and leukocytosis * CT :IMPRESSION: Constellation of findings consistent with sigmoid diverticulitis and secondary colovesical fistula formation. Correlate with urinalysis. If not recently performed would also consider a follow-up colonoscopy when clinically improved to exclude malignancy which could present similarly. 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 Surgery has been consulted and is following will continue to monitor patient's leukocytosis and advance diet as tolerated can hopefully discharge on PO ABX follow up for surgery outpatient. Time Spent With Patient Time with patient: 15 - 25 minutes Subjective Date/time seen: 02/09/24 14:17 Interval history: Patient is a 63-year-old male who was admitted for further evaluation and treatment for diverticulitis and a Vesicointestinal fistula. 02/09/2024: assumed Care Patient up in chair was able to tolerate clear liquids and WBC trending down. Patient reports mild ABD tenderness, no N/V, fever, or chills. Fecal in urine improving. Review of Systems Review of Systems: abdominal pain, urinating stool, All systems reviewed & are unremarkable except as noted in HPI and below Exam Narrative: * GENERAL: Alert and oriented x 3. No acute distress. * Eyes: PERRLA. * HEENT: Moist mucous membranes. * LUNGS: Clear to auscultation bilaterally. No accessory muscle use. * CARDIOVASCULAR: Regular rate and rhythm. No murmur. S1-S2 * ABDOMEN: Soft, tenderness and non-distended. * EXTREMITIES: No edema. Non-tender * SKIN: No rashes or lesions. Skin warm, dry. * NEUROLOGIC: No focal neurological deficits. CN II-XII grossly intact Objective Data Vital Signs Vital Signs: Vital Signs - 24 hr 02/08/24 20:00 02/08/24 21:30 02/09/24 06:00 Temperature 98.3 F 97.9 F Pulse Rate 63 65 Respiratory Rate 18 16 Blood Pressure 133/71 112/60 Pulse Oximetry 99 98 Oxygen Delivery Room Air 02/09/24 09:14 02/09/24 08:50 02/09/24 14:00 Temperature 97.7 F Pulse Rate 68 Respiratory Rate 17 Blood Pressure 128/74 Pulse Oximetry 100 98 Oxygen Delivery Room Air Room Air Intake/Output Intake/Output: Intake & Output 02/06/24 02/07/24 02/08/24 02/09/24 23:59 23:59 23:59 23:59 Intake Total 100 3590 2264 Balance 100 3590 2264 Meds/Results Medications: Active Medications Generic Name Dose Route Start Last Admin Trade Name Freq PRN Reason Stop Dose Admin Acetaminophen 1,000 mg 02/07/24 21:46 02/07/24 21:58 Acetaminophen 500 Mg Tablet PO 1,000 mg Q6H PRN Administration Mild Pain (1-3) or Fever Diphenhydramine HCl 25 mg 02/08/24 11:15 02/08/24 22:19 Diphenhydramine Hcl Cap 25 Mg Capsule PO 25 mg QHS PRN Administration Insomnia Hydromorphone HCl 1 mg 02/08/24 02:24 Hydromorphone Hcl Inj (*Crx) 1 Mg/Ml Syr IV PUSH Q3H PRN Pain Rated 7-10 Piperacillin/Tazobactam/Dextrose 3.375 gm in 50 mls @ 100 mls/hr 02/07/24 23:00 02/09/24 12:55 Zosyn 3.375 Gm/Ns 50 Ml IVPB 100 mls/hr Q6HR YULIA Administration Sodium Chloride 1,000 mls @ 125 mls/hr 02/07/24 17:35 02/09/24 05:42 Normal Saline Iv IV CONT 125 mls/hr .Q8H YULIA Administration Ibuprofen 800 mg in 200 mls @ 400 mls/hr 02/08/24 11:15 02/08/24 19:22 Caldolor 800 Mg/200 Ml IVPB Infused Q6H PRN Infusion Pain Rated 4-6 Ondansetron HCl 4 mg 02/08/24 02:24 Ondansetron Inj 4 Mg/2 Ml Vial IV PUSH Q6H PRN Nausea And Vomiting Pantoprazole Sodium 40 mg 02/08/24 09:00 02/09/24 08:54 Pantoprazole Sodium Iv 40 Mg Vial IV PUSH 40 mg Q12HR YULIA Administration Radiology Results: ITS Impressions Abdomen/Pelvis CT 02/07/24 15:54 IMPRESSION: 1. Constellation of findings consistent with sigmoid diverticulitis and secondary colovesical fistula formation. Correlate with urinalysis. If not recently performed would also consider a follow-up colonoscopy when clinically improved to exclude malignancy which could present similarly. 2. Prostatomegaly. 3. Cholelithiasis. Labs Labs: Laboratory Results - last 24 hr 02/09/24 02/09/24 06:05 06:06 WBC 10.1 H RBC 3.43 L Hgb 10.2 L Hct 32.5 L MCV 94.8 MCH 29.7 MCHC 31.4 L RDW 14.0 Plt Count 345 MPV 10.7 H Sodium 138 Potassium 3.6 Chloride 107 Carbon Dioxide 27 Anion Gap 4 BUN 7 L Creatinine 0.80 Estim Creat Clear Calc 85 Estimated GFR > 60 Glucose 89 Calcium 8.3 L C-Reactive Protein 5.2 H Carcinoembryonic Ag 1.2 Quality VTE Prophylaxis VTE prophylaxis: mechanical ordered -Patient's previous records reviewed on admission -ER notes reviewed in detail on admission -discussed all findings and current treatment plan with patient/Family/POA -Consultations reviewed for recommendations -Patient's disposition for safe discharge discussed with telephonic case manager Dictation performed by [employer] direct speech recognition software, therefore public speaking coach variants and typographical errors may occur. Hospitalist MIPS Advance Care Plan I have confirmed that the patient's Advanced Care Plan is present, code status is documented, or surrogate decision maker is listed in patient medical record.: Yes Medication Reconciliation I have utilized all available resources to obtain, update and review the patients current medications (includes all prescriptions, OTC, herbals, cannabis, and nutritional supplements).: Yes The patient is not eligible for med reconciliation; the patient is in a emergent medical situation where delaying treatment would jeopardize the patients health.: No
[2024-02-09 21:08] VITALS: BP 132/72; PULSE 63; RESP 16; TEMP 37.2; O2SAT 100
[2024-02-09] MEDS: IBUPROFEN IV 800 MG/200 ML 800 MG/200 ML BAG 400 MG IVPB (21:52)
[2024-02-09] MEDS: diphenhydrAMINE HCl CAP 25 MG CAPSULE PO (21:53)
--- NOTE | 2024-02-10 03:33 | PC.NURSE ---
charting reviewed for Umer Sainz RNLP for this shift
[2024-02-10 05:36] VITALS: BP 117/67; PULSE 63; RESP 16; TEMP 36.3; O2SAT 98
[2024-02-10] MEDS: PIPERACILLN/TAZ 3.375GM/NS50ML 3.375 GM/50 ML BAG IVPB ×2 (05:57→12:55)
[2024-02-10 06:24] LABS: Hematocrit 30.5 % (42.0-52.0); Hemoglobin 9.6 g/dL (14.0-18.0); Mean Corpuscular HGB Conc 31.5 g/dl (32-36); Mean Corpuscular Hemoglobin 29.6 pg (26-34); Mean Corpuscular Volume 94.1 fl (80-100); Mean Platelet Volume 10.7 fl (7.4-10.4); Platelet Count Result 317 k/mm3 (150-375); Red Blood Count 3.24 M/mm3 (4.6-6.20); White Blood Count 7.5 K/mm3 (4.5-10.0)
[2024-02-10 06:32] LABS: Alanine Aminotransferase 17 U/L (6-50); Albumin Level 3.1 g/dL (3.5-5.1); Alkaline Phosphatase 65 U/L (38-126); Anion Gap 3 mmol/L (4-12); Aspartate Amino Transferase 22 U/L (17-59); Bilirubin,Total 0.4 mg/dL (0.2-1.3); Blood Urea Nitrogen 4 mg/dL (9-20); Calcium 8.5 mg/dL (8.4-10.2); Carbon Dioxide 29 mmol/L (22-30); Chloride 109 mmol/L (98-107); Estimated CRCL calculation 76 ml/min; Estimated Glomerular Filt Rate > 60; Glucose 93 mg/dL (65-110); Potassium 3.6 mmol/L (3.4-5.0); Sodium 141 mmol/L (137-145)
[2024-02-10] MEDS: PANTOPRAZOLE SODIUM IV 40 MG VIAL IV PUSH (08:42)
--- NOTE | 2024-02-10 11:15 | P.PNGS_ITS ---
Progress Note: A&P Assessment and Plan (1) Diverticulitis: Code(s): K57.92 - Diverticulitis of intestine, part unspecified, without perforation or abscess without bleeding Status: Acute Assessment and Plan: * Advance to low fiber diet * OK to discharge after dinner if tolerating diet. * Follow up in office in 2 weeks and will also refer to Urology as outpatient. * Continue antibiotics until seen by Urology. 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 No fevers. Exam GI: Inspection: non-distended GI Palp: Yes Soft to palpation, No Tenderness to palpation present (GI) and No Guarding due to palpation present (GI) Objective Data Vital Signs Vital Signs: Vital Signs - 24 hr 02/09/24 14:00 02/09/24 21:08 02/09/24 20:00 Temperature 97.7 F 98.9 F Pulse Rate 68 63 Respiratory Rate 17 16 Blood Pressure 128/74 132/72 Pulse Oximetry 98 100 Oxygen Delivery Room Air 02/10/24 05:36 02/10/24 08:40 Temperature 97.4 F L Pulse Rate 63 Respiratory Rate 16 Blood Pressure 117/67 Pulse Oximetry 98 Oxygen Delivery Room Air Intake/Output Intake/Output: Intake & Output 02/07/24 02/08/24 02/09/24 02/10/24 23:59 23:59 23:59 23:59 Intake Total 100 3590 3246 340 Balance 100 3590 3246 340 Meds/Results Medications: Active Medications Generic Name Dose Route Start Last Admin Trade Name Freq PRN Reason Stop Dose Admin Acetaminophen 1,000 mg 02/07/24 21:46 02/07/24 21:58 Acetaminophen 500 Mg Tablet PO 1,000 mg Q6H PRN Administration Mild Pain (1-3) or Fever Diphenhydramine HCl 25 mg 02/08/24 11:15 02/09/24 21:53 Diphenhydramine Hcl Cap 25 Mg Capsule PO 25 mg QHS PRN Administration Insomnia Hydromorphone HCl 1 mg 02/08/24 02:24 Hydromorphone Hcl Inj (*Crx) 1 Mg/Ml Syr IV PUSH Q3H PRN Pain Rated 7-10 Piperacillin/Tazobactam/Dextrose 3.375 gm in 50 mls @ 100 mls/hr 02/07/24 23:00 02/10/24 05:57 Zosyn 3.375 Gm/Ns 50 Ml IVPB 100 mls/hr Q6HR YULIA Administration Ibuprofen 800 mg in 200 mls @ 400 mls/hr 02/08/24 11:15 02/09/24 21:52 Caldolor 800 Mg/200 Ml IVPB 400 mls/hr Q6H PRN Administration Pain Rated 4-6 Ondansetron HCl 4 mg 02/08/24 02:24 Ondansetron Inj 4 Mg/2 Ml Vial IV PUSH Q6H PRN Nausea And Vomiting Pantoprazole Sodium 40 mg 02/08/24 09:00 02/10/24 08:42 Pantoprazole Sodium Iv 40 Mg Vial IV PUSH 40 mg Q12HR YULIA Administration Radiology Results: ITS Impressions Abdomen/Pelvis CT 02/07/24 15:54 IMPRESSION: 1. Constellation of findings consistent with sigmoid diverticulitis and secondary colovesical fistula formation. Correlate with urinalysis. If not recently performed would also consider a follow-up colonoscopy when clinically improved to exclude malignancy which could present similarly. 2. Prostatomegaly. 3. Cholelithiasis. Labs Labs: Laboratory Results - last 24 hr 02/10/24 06:03 WBC 7.5 RBC 3.24 L Hgb 9.6 L Hct 30.5 L MCV 94.1 MCH 29.6 MCHC 31.5 L RDW 14.0 Plt Count 317 MPV 10.7 H Sodium 141 Potassium 3.6 Chloride 109 H Carbon Dioxide 29 Anion Gap 3 L BUN 4 L Creatinine 0.90 Estim Creat Clear Calc 76 Estimated GFR > 60 Glucose 93 Calcium 8.5 Total Bilirubin 0.4 AST 22 ALT 17 Alkaline Phosphatase 65 Total Protein 7.0 Albumin 3.1 L
--- NOTE | 2024-02-10 13:59 | P.DS_ITS ---
DS: Admitting Diagnosis Discharge Date 02/10/2024 Admitting Diagnosis Diverticulitis/[place]-vesical fistula DS: Discharge Diagnosis Discharge Diagnosis (1) Diverticulitis of colon with perforation: Code(s): K57.20 - Diverticulitis of large intestine with perforation and abscess without bleeding Status: Acute (2) [place]-vesical fistula: Code(s): N32.1 - Vesicointestinal fistula Status: Acute DS: Summary Hospital Course Reason for hospitalization: Diverticulitis/colovesical fistula Hospital Course: This was a 63-year-old male with no significant past medical history presents to the emergency room after having episode of excruciating lower abdomen pain, feces present in the urine, nausea, fevers, rigors, chills, generalized malaise x2 days duration patient recently discharged home after being treated for acute diverticulitis and rectal bleed. preliminary workup was significant for CT of abdomen and pelvis with colo vesicular fistula and perforated diverticuli. Patient had been discharged the day prior on oral ABX Cipro but was ordered Q48HR and had not received a dose when symptoms had worsened. Surgery was consulted and plan was for continued bowel rest and advancing diet as tolerated he was started on zosyan IV and IV fluids. Patient continued to improve, WBC trended down and we were able to advance diet without discomfort. He was discharged home on intermediate accountant PO Augmentin and Flagyl with a follow-up with urology prior to sigmoid colon resection with surgery eventually needing to be scheduled outpatient. Status at Discharge Functional status at discharge: independent ambulation Overall status at discharge: patient is back to baseline Time Spent with Patient Time attestation: Total time spent providing and/or coordinating discharge services: Time spent: Greater than 30 minutes Exam Narrative: * GENERAL: Alert and oriented x 3. No acute distress. * Eyes: PERRLA. * HEENT: Moist mucous membranes. * LUNGS: Clear to auscultation bilaterally. No accessory muscle use. * CARDIOVASCULAR: Regular rate and rhythm. No murmur. S1-S2 * ABDOMEN: Soft, tenderness and non-distended. * EXTREMITIES: No edema. Non-tender * SKIN: No rashes or lesions. Skin warm, dry. * NEUROLOGIC: No focal neurological deficits. CN II-XII grossly intact DS: Data Data Completed and Pending Labs on day of discharge: Labs from last 24 hours 02/10/24 06:03 WBC 7.5 RBC 3.24 L Hgb 9.6 L Hct 30.5 L MCV 94.1 MCH 29.6 MCHC 31.5 L RDW 14.0 Plt Count 317 MPV 10.7 H Sodium 141 Potassium 3.6 Chloride 109 H Carbon Dioxide 29 Anion Gap 3 L BUN 4 L Creatinine 0.90 Estim Creat Clear Calc 76 Estimated GFR > 60 Glucose 93 Calcium 8.5 Total Bilirubin 0.4 AST 22 ALT 17 Alkaline Phosphatase 65 Total Protein 7.0 Albumin 3.1 L Imaging Radiologist's impression: Radiology Results: ITS Impressions Abdomen/Pelvis CT 02/07/24 15:54 IMPRESSION: 1. Constellation of findings consistent with sigmoid diverticulitis and secondary colovesical fistula formation. Correlate with urinalysis. If not recently performed would also consider a follow-up colonoscopy when clinically improved to exclude malignancy which could present similarly. 2. Prostatomegaly. 3. Cholelithiasis. Discharge Plan Discharge Attending physician on discharge: Shmuel Olguin Consulting providers: Damion Landeros; Lianna Corrales; Kelsey Peter V.; Demian Atkinson Discharging Clinician: Effie Coronado Anticipated Discharge Date/Time: 02/10/24 13:45 Patient Disposition: Home, Self-Care Activity: other - see discharge instructions Diet: low fiber Discharge Instructions: You are being discharged to home after treatment for Diverticulitis and [place]- vesical fistula. Surgery has ordered 2 separate oral antibiotic please take as prescribed. * You will need a follow-up with urology KATIA * You also have hernia that can be scheduled with surgery outpatient their information has been provided. * Monitor for signs of worsening infection including temperature, chills, ABD pain, increased heart rate, shortness of breath or overall not feeling well, if this ocurs please seek medical attention * Light activity for 2 weeks, then may resume regular activity without restrictions. * I have provided information regarding your diagnosis for informational purposes and education. How can you care for yourself at home? ? Keep track of any new symptoms or changes in your symptoms. ? Rest until you feel better. ? Be safe with medicines. Take your medicines exactly as prescribed. Call your doctor if you think you are having a problem with your medicine. ? Do not drive after taking a prescription pain medicine. ? Ensure to follow-up with primary care physician as indicated and provide updated medication list provided to you at discharge. When should you call for help? Call 911 anytime you think you may need emergency care. For example, call if: ? You passed out (lost consciousness). Call your doctor now or seek immediate medical care if: ? You have new symptoms like fever, difficulty breathing, Chest pain, vomiting, or rash. ? You have new or different pain. ? You are confused and are having trouble thinking clearly. ? Your symptoms are getting worse. Watch closely for changes in your health, and be sure to contact your doctor if: ? You do not get better as expected. Patient Instructions: Antibiotic Form, Diverticulitis (DC), Low Fiber Diet (DC), Diverticulitis Diet (DC), Gastrointestinal Fistula (DC) Patient Language: Turkmen Stand Alone Forms: General Discharge Information Follow-up/Referrals: Tam Leyva MD [Physician] - 1 Week Damion Landeros DO [Physician] - 2 Weeks Discharge Medications: New metronidazole 500 mg tablet 500 mg PO Q8H 7 Days Qty: 21 0RF amoxicillin-pot clavulanate 875-125 mg tablet 1 tablet PO Q12H 28 Days Qty: 56 0RF Continued multivitamin [Daily Multi-Vitamin] Tablet 1 tablet PO DAILY esomeprazole magnesium [Nexium 24HR] 20 mg Capsule,Delayed Release(Dr/Ec) 20 mg PO DAILY polysaccharide iron complex 150 mg iron Capsule 150 mg PO DAILY@0800 Qty: 30 0RF Discontinued ciprofloxacin HCl 250 mg tablet 250 mg PO EVERY OTHER DAY Rx Instructions: until f/u with surgeon Date of admission: 02/08/24 10:43 Primary Care Provider: Shayan Herrera Admitting Provider: Kulwinder Estrada Attending physician on admission: Effie Coronado Condition: Stable Quality VTE Prophylaxis VTE prophylaxis: mechanical ordered -Patient's previous records reviewed on admission -ER notes reviewed in detail on admission -discussed all findings and current treatment plan with patient/Family/POA -Consultations reviewed for recommendations -Patient's disposition for safe discharge discussed with protective services case worker Dictation performed by [employer] direct speech recognition software, therefore chief green officer variants and typographical errors may occur. Hospitalist MIPS Heart Failure (Exclusion) Patient has history of Heart Transplant or Left Ventricular Assistive Device?: No IF YES, STOP HERE Heart Failure (Qualifier) Patient has current or prior documentation of LVEF less than or equal to 40%, or mod/servere depressed LVSF?: No IF NO, STOP HERE
[2024-02-10 14:00] VITALS: BP 142/73; PULSE 67; RESP 18; TEMP 36.8; O2SAT 100
== END 2024-02-10 17:45 | disposition home or self-care (01) | DRG 392 ==
LOC: ANHED 15:12 → ANH2MED 18:38
PROVIDERS: Emergency Medicine; Nurse Practitioner Family; Admitting Provider Family Medicine; Emergency Provider Emergency Medicine; PCP Family Medicine; Visit Provider Nurse Practitioner Family
DX: K57.20 Diverticulitis of large intestine with perforation and abscess without bleeding (principal); N32.1 Vesicointestinal fistula; K21.9 Gastro-esophageal reflux disease without esophagitis; D64.9 Anemia, unspecified
CPT/HCPCS: 36415; 74177; 80048; 80053; 81001; 82378; 85025; 85027; 86140; 87086; 96365; 96366; 99285; A9270; G0378; J1741; J2470; J2543; J7030; Q9967

== ENCOUNTER 2024-04-17 11:00 | Inpatient (IN) | payer MEDICARE, SELFPAY ==
[2024-04-05 11:47] VITALS: BP 141/81; PULSE 62; RESP 16; TEMP 36.9; O2SAT 99; BMI 25.2
--- NOTE | 2024-04-05 12:28 | PC.NURSE ---
Report to the Outpatient Waiting Room, entrance under the green pavilion located off [facility], at time __07:30am on date __04/17/24 . Planned Procedure Time: __09;30am .? Time changes happen often and if your time is changed the preop area will call you the afternoon before. - You and your visitor will be asked to self-screen and do not enter if you have any COVID symptoms. Please call surgeon if you need to reschedule. - A mask is optional within the hospital at this time. Patients may have Dr Landeros to give Ensure Bundle and Bowel Prep Info - No food from midnight until time of surgery and no smoking. This includes no chewing gum, candy or mints. - Take only the following medications with a SIP of water on the morning of surgery: None DO NOT STOP ANY OF YOUR OTHER PRESCRIPTION MEDICATIONS PRIOR TO SURGERY EXCEPT THE FOLLOWING Medications to discontinue per physician Hold all Multivitamins and supplements 3 days prior per Anesthesia Date to take last dose____04/13/24 Please no make-up, nail latvian, hairspray, perfume, deodorant, or body powder the day of surgery.? No jewelry (including any body piercings) or valuables the day of surgery, leave them at home.? Please take a shower or bath the night before, or the morning of, surgery with an antibacterial soap.? Wear comfortable, loose fitting clothing.? Overnight bag - Glasses/Contact case- - Jewelry must be removed prior to entering the operating room.? Rings and piercings that are not removed may be cut off. - The hospital will not accept responsibility for valuables.? - Please leave all valuables, including medications, at home the day of surgery. If you are going home after surgery, a licensed mail truck driver must drive you home.? - NO public transportation without another adult if you receive anesthesia. - We recommend that an adult stay with you for 24 hours following discharge. - We also recommend that you do not drive, make important decision, drink alcoholic beverages, or take any drugs that were not prescribed by your health care provider for at least 24 hours after your discharge time. Follow any additional instructions given to you from your surgeon. Telephone instructions given to ___patient and asked if any additional questions and then verbalized understanding. Patient advised to call surgeon office or pre surgery nurse liaison [phone] if any additional questions.
[2024-04-17] VITALS (16 sets, daily range): BP systolic 110–144; BP diastolic 60–83; PULSE 61–110; RESP 12–24; TEMP 36.2–37.1; O2SAT 94–100; BMI 26.2
--- NOTE | ~2024-04-17 | XR_ITS ---
EXAMINATION: XR stent kub - surgery DATE: 04/17/2024 10:08 INDICATION: Bilateral ureteral stent placement TECHNIQUE: Fluoroscopic images from a bilateral stent placement are submitted for review. 17 seconds of fluoroscopy time. FINDINGS: There are bilateral double-J internal ureteral stent projecting in expected position, with proximal C ope loop at the level of the renal pelvis.. IMPRESSION: 1. Bilateral internal ureteral stent placement. Please refer to real-time procedural findings for d etails. Reviewed, dictated and finalized at location A. [facility] IMPRESSION: 1. Bilateral internal ureteral stent placement. Please refer to real-time pro cedural findings for details.
--- NOTE | 2024-04-17 07:32 | P.HP_ITS ---
H&P: HPI History of Present Illness Date/Time: 04/17/24 07:32 Chief Complaint: colovesical fistula Narrative: 63 yr old male undergoing sigmoid colectomy and open umbilical hernia repair. Asked to place periop bilateral external ureteral stents. Review of Systems Review of Systems: All systems reviewed & are unremarkable except as noted in HPI and below PMFSH Past Medical History Medical History Diverticulitis [place]-vesical fistula Elevated PSA H/O gastroesophageal reflux (GERD) Surgical History Surgical History History of tonsillectomy History of surgery on arm for broken bones Family History Family History Father Lung cancer Mother Ovarian cancer Social History Social History Smoking status: Never smoker Alcohol intake: current Drinks per week: 12 Substance use: never Substance use type: does not use Do You Feel Safe in your Home?: Yes Lack of Transportation: No Lack of Food: Never True Current Housing: I Have Housing Concerned About Future Housing: No Difficulty Paying Gas/Electric Bills: No Difficulty Paying for Meds: No Currently Unemployed: No Education: High School Diploma/GED Difficulty w/ Childcare or Family Care: No Spiritual care concerns: No Meds Home Medications and Allergies Home Medications ?Medication ?Instructions ?Recorded ?Confirmed ?Type esomeprazole magnesium 20 mg 20 mg PO DAILY 03/28/21 04/05/24 History capsule,delayed release (Nexium 24HR) multivitamin (Daily Multi-Vitamin 1 tablet PO DAILY 04/09/21 04/05/24 History tablet) ciprofloxacin HCl 500 mg tablet See Rx Instructions .Route 04/05/24 Rx .COMPLEX #1 tablet metronidazole 500 mg tablet See Rx Instructions .Route 04/05/24 Rx .COMPLEX #3 tabs Allergies Allergy/AdvReac Type Severity Reaction Status Date / Time No Known Allergies Allergy Verified 04/05/24 12:03 Exam Const: General: cooperative and comfortable Resp: Effort & Inspection: normal respiratory effort Cardio: Rate: regular rate Rhythm: regular rhythm Assessment and Plan Assessment and plan (1) [place]-vesical fistula: Code(s): N32.1 - Vesicointestinal fistula Status: Acute Assessment and Plan: Placement of ana maria op bilateral external ureteral stents.
--- NOTE | 2024-04-17 07:36 | WPDHPUPDATE1 ---
History and Physical Update Update Date/Time: 04/17/24 07:36 History and Physical has been reviewed, including an updated exam of the patient. There are NO changes in the patient's condition. Risks, benefits, and alternatives have been discussed and questions answered. Patient agrees to proceed with procedure. Placement of bilateral ureteral stents.
[2024-04-17] MEDS: ACETAMINOPHEN 500 MG TABLET 1000 MG PO ×2 (08:35→21:23)
[2024-04-17] MEDS: KETOROLAC 15 MG/ML VIAL (*BKC) IV PUSH (08:35)
--- NOTE | 2024-04-17 08:51 | WPDHPUPDATE1 ---
History and Physical Update Update Date/Time: 04/17/24 08:51 History and Physical has been reviewed, including an updated exam of the patient. There are NO changes in the patient's condition. Risks, benefits, and alternatives have been discussed and questions answered. Patient agrees to proceed with procedure.
--- NOTE | 2024-04-17 08:51 | PM.IMHP ---
H&P: HPI History of Present Illness Date/Time: 04/17/24 08:51 Chief Complaint: Colovesical fistula Narrative: This is a 63-year-old man who presents with a colovesical fistula. The had noticed some discomfort with urination and this was then shortly followed by fecal urea. He CT showed evidence of a colovesical fistula likely caused by diverticulitis. He has undergone a cystoscopy by Urology and has no signs of bladder pathology that would have caused this. He required continued antibiotics for UTIs since the fistula was identified. He now presents for sigmoid colectomy for treatment of the fistula. He also has a small umbilical hernia which is going to be repaired at same time. Review of Systems Review of Systems: All systems reviewed & are unremarkable except as noted in HPI and below Constitutional: Constitutional: Denies chills, Denies fever(s), Denies headache(s) and Denies weight loss Eyes: Eyes: Denies change in vision ENT: Denies dizziness, Denies headache(s), Denies neck mass and Denies throat swelling Cardiovascular: Cardiovascular: Denies chest pain, Denies lightheadedness and Denies dyspnea Respiratory: Respiratory: Denies cough, Denies dyspnea and Denies wheezing Gastrointestinal: Gastrointestinal: Denies abdominal pain, Denies change in bowel habits, Denies nausea and Denies vomiting Genitourinary: Genitourinary: Denies hematuria and Denies dysuria Musculoskeletal: Musculoskeletal: Reports as per HPI Integumentary/Breasts: Skin/Breast: Reports as per HPI Neurologic: Denies dizziness and Denies headache(s) Allergic/Immunologic: Allergic/Immunologic: Denies throat swelling and Denies wheezing PMF Past Medical History Medical History Diverticulitis [place]-vesical fistula Elevated PSA H/O gastroesophageal reflux (GERD) Surgical History Surgical History History of tonsillectomy History of surgery on arm for broken bones Family History Family History Father Lung cancer Mother Ovarian cancer Social History Social History Smoking status: Never smoker Alcohol intake: current Drinks per week: 12 Substance use: never Substance use type: does not use Do You Feel Safe in your Home?: Yes Lack of Transportation: No Lack of Food: Never True Current Housing: I Have Housing Concerned About Future Housing: No Difficulty Paying Gas/Electric Bills: No Difficulty Paying for Meds: No Currently Unemployed: No Education: High School Diploma/GED Difficulty w/ Childcare or Family Care: No Spiritual care concerns: No Meds Home Medications and Allergies Home Medications ?Medication ?Instructions ?Recorded ?Confirmed ?Type esomeprazole magnesium 20 mg 20 mg PO DAILY 03/28/21 04/05/24 History capsule,delayed release (Nexium 24HR) multivitamin (Daily Multi-Vitamin 1 tablet PO DAILY 04/09/21 04/05/24 History tablet) ciprofloxacin HCl 500 mg tablet See Rx Instructions .Route 04/05/24 Rx .COMPLEX #1 tablet metronidazole 500 mg tablet See Rx Instructions .Route 04/05/24 Rx .COMPLEX #3 tabs Allergies Allergy/AdvReac Type Severity Reaction Status Date / Time No Known Allergies Allergy Verified 04/05/24 12:03 Exam Const: General: no acute distress and alert Orientation/consciousness: patient oriented x3 HENMT: Head: normocephalic and atraumatic Ears: hearing grossly normal bilaterally Face/Nose/Sinus: Normal nares present Mouth: Yes Normal oral and palatal mucosa present Eyes: Periorbital: periorbital findings normal Sclera: sclerae normal EOM: EOMs intact bilaterally Neck: Neck: normal visual inspection, no lymphadenopathy and trachea midline Chest: Chest palpation & inspection: normal inspection of the chest Resp: Effort & Inspection: normal respiratory effort Auscultation: clear to auscultation bilaterally Cardio: Jugular venous distension: no JVD Rate: regular rate Rhythm: regular rhythm Heart sounds: S1 normal heart sound present and S2 normal heart sound present Peripheral pulses: Peripheral pulses 2+ throughout GI: Inspection: normal to inspection GI Palp: Yes Soft to palpation, No Tenderness to palpation present (GI), No Guarding due to palpation present (GI) and No Rebound tenderness present Percussion: Yes normal to percussion Auscultation: normal bowel sounds : General: Yes no CVA tenderness Back/Spine/Pelvis: Back: no CVA tenderness Neuro: General: patient oriented x3, no focal motor deficits and CN's II-XI intact bilaterally Cognition (Neuro): normal cognition Speech: normal speech Motor exam (neuro): 5/5 motor strength present throughout Extrem: General: capillary refill normal and no clubbing, cyanosis or edema Assessment and Plan Assessment and plan (1) [place]-vesical fistula: Code(s): N32.1 - Vesicointestinal fistula Status: Acute Assessment and Plan: I have recommended laparoscopic sigmoid colectomy, da Kennedy assisted, and open umbilical hernia repair. I have discussed the procedure, risks, benefits, and alternatives with the patient. All questions answered. No changes since last seen in office. (2) Umbilical hernia without mention of obstruction or gangrene: Code(s): K42.9 - Umbilical hernia without obstruction or gangrene Status: Acute
--- NOTE | 2024-04-17 08:52 | WPDANESEPPF ---
Anes - Initial Pre Proc Eval Procedure: Operation Date: 04/17/24 09:30 Proposed Procedures p Laparoscopic Sigmoid Colectomy, Da Kennedy Assisted - DO yuridia Jones Open Umbilical Hernia Repair - DO yuridia Jones Bilateral Ureteral Stent Placement for Abdominal Surgery - Laith Card MD Date/Time: 04/17/24 08:52 Surgeon: Damion Landeros DO Pre Op Diagnosis: colovesical fistula, diverticulitis of colon Patient Data Age: 63 Gender: M Height: 1.75 m Weight: 77.7 kg Last Vital Signs Temp 36.9 C 04/05/24 11:47 Pulse 62 04/05/24 11:47 Resp 16 04/05/24 11:47 BP 141/81 H 04/05/24 11:47 Pulse Ox 99 04/05/24 11:47 O2 Del Method Room Air 04/05/24 11:47 Allergies Allergy/AdvReac Type Severity Reaction Status Date / Time No Known Allergies Allergy Verified 04/05/24 12:03 Home Medications ?Medication ?Instructions ?Recorded ?Confirmed ?Type esomeprazole magnesium 20 mg 20 mg PO DAILY 03/28/21 04/05/24 History capsule,delayed release (Nexium 24HR) multivitamin (Daily Multi-Vitamin 1 tablet PO DAILY 04/09/21 04/05/24 History tablet) ciprofloxacin HCl 500 mg tablet See Rx Instructions .Route 04/05/24 Rx .COMPLEX #1 tablet metronidazole 500 mg tablet See Rx Instructions .Route 04/05/24 Rx .COMPLEX #3 tabs Patient hx anesthesia problems: none Family hx anesthesia problems: none Results Review: All pre-operative results and documents have been reviewed as part of the pre-operative evaluation. [facility] Past Medical History Medical History Diverticulitis [place]-vesical fistula Elevated PSA H/O gastroesophageal reflux (GERD) Surgical History Surgical History History of tonsillectomy History of surgery on arm for broken bones Family History Family History Father Lung cancer Mother Ovarian cancer Social History Social History Smoking status: Never smoker Alcohol intake: current Drinks per week: 12 Substance use: never Substance use type: does not use Do You Feel Safe in your Home?: Yes Lack of Transportation: No Lack of Food: Never True Current Housing: I Have Housing Concerned About Future Housing: No Difficulty Paying Gas/Electric Bills: No Difficulty Paying for Meds: No Currently Unemployed: No Education: High School Diploma/GED Difficulty w/ Childcare or Family Care: No Spiritual care concerns: No Anes - Eval Final PreProcedure Day of Procedure 04/17/24 08:52 Patient weight: normal Heart: regular rate and rhythm Lungs: clear to auscultation Airway: Mallampati scale class III Neurological: alert and oriented Last oral intake: >/= 8 hours ASA classification: III Emergent: no Anesthetic plan: proceed Anesthesia type and monitoring: general and standard monitoring Results Review: All pre-operative results and documents have been reviewed as part of the pre-operative evaluation. Informed Consent: The patient's anesthetic plan and its attendant risks and benefits were discussed with the patient/family/POA. Questions were solicited and answers provided to the satisfaction of the patient/family/POA.
[2024-04-17] MEDS: ceFAZolin 2 GM/D5W 50 ML 2 GM/50 ML BAG IVPB (09:15)
[2024-04-17] MEDS: metroNIDAZOLE 500 MG/ISO 100ML 500 MG/100 ML BAG 100 MG IVPB (09:18)
--- NOTE | 2024-04-17 09:54 | W.PM.PROC2 ---
Procedure Note - Detailed Date of Procedure 04/17/24 Pre-op Diagnosis colovesical fistula, diverticulitis of colon Post-op Diagnosis Same Procedure Performed Cystoscopy, bilateral external ureteral stent placements, bilateral retrograde pyelograms, complex Mo catheter placement Surgeon Laith Card MD Anesthesia General Description of Procedure Patient is taken to the operative suite correctly identified. Once anesthesia was obtained was placed in dorsal lithotomy position and prepped and draped usual sterile fashion. Twenty-two Vietnamese scope was inserted in the bladder there were no tumors noted. He has what appears to be this fistulous communication along the posterior wall. At this point time both ureteral orifices were visualized. Guidewires were inserted into them. External ureteral catheters were placed over the guidewires up to the renal pelvis. Placement was confirmed by doing a pyelogram. The scope was then removed. Sixteen Vietnamese Mo was inserted and inflated with 10 cc of saline. The stents were secured to the Mo catheter. Patient tolerated this portion procedure well without any complications. Dr. Gil was then to complete his portion of the procedure and he will dictate that. The stents will removed at the termination of his procedure. This completes dictation. Please send a copy of op note to my office. Estimated Blood Loss 0 Drains Yes Packing No Pathology None sent Complications No immediate complications Condition Stable
[2024-04-17] MEDS: ceFAZolin SODIUM 1 GM VIAL 2 GM IV PUSH (13:15)
[2024-04-17] MEDS: BUPIVACAINE/EPINEPHRINE 0.5% 50 ML VIAL 60 ML INFILTRATE (14:09)
[2024-04-17] MEDS: LACTATED RINGERS 1,000 ML 30 ML IV CONT ×3 (14:31→15:10)
[2024-04-17] MEDS: ONDANSETRON INJ 4 MG/2 ML VIAL IV PUSH (14:51)
[2024-04-17] MEDS: fentaNYL CITRATE INJ (*CRX) 100 MCG/2 ML VIAL 25 MCG IV PUSH ×5 (14:53→15:13)
--- NOTE | 2024-04-17 15:00 | W.PM.PROC2 ---
Procedure Note - Detailed Date of Procedure 04/17/24 Pre-op Diagnosis colovesical fistula, diverticulitis of colon Post-op Diagnosis Same Procedure Performed 1. Laparoscopic sigmoid colectomy with colorectal anastomosis, da Kennedy assisted 2. Laparoscopic mobilization of the splenic flexure, da Kennedy assisted 3. Open 1 cm umbilical hernia repair Surgeon Damion Landeros, DO Anesthesia General and Local (Exparel) Indications This is a 63-year-old man who presented with a colovesical fistula. He had been hospitalized back in mid January for diverticulitis and colovesical fistula. He was placed on antibiotics at that time and his symptoms improved. After completing the antibiotics he did have return of symptoms with fecal urea and dysuria. He was placed back antibiotics to suppress any further UTIs until surgical intervention. He was referred to Urology and cystoscopy was performed in the office. After recovering at least 6 weeks from this episode, discussions were made with the patient about treatment options and decision was made to proceed with robotic assisted laparoscopic sigmoid colectomy. The patient also had a small umbilical hernia that was causing some occasional pain. Decision was made to proceed with umbilical hernia repair at the time of sigmoid colectomy. She has arrangements were also made for preoperative stent placement by Urology. Findings Robotic assisted laparoscopic sigmoid colectomy was performed. The colovesical fistula was identified in the mid sigmoid colon which was densely adherent to the dome of the bladder just to the left of midline. Careful adhesiolysis was performed to take down the colovesical fistula and mobilize the sigmoid colon off of the abdominal and pelvic wall. The distal sigmoid and rectum appeared free of any significant adhesions. The descending colon also appeared healthy. I did have to take down the splenic flexure to allow adequate mobilization of the descending colon down into the pelvis. A 28 mm EEA stapler was chosen for the anastomosis. An end to side anastomosis was performed. Leak test was performed and there was no evidence of air bubbles leaking from the anastomosis. Indocyanine green was also infused to assess perfusion at the anastomosis which appeared adequate. At the conclusion of the procedure I then performed an umbilical hernia repair. The umbilical hernia only measured 1 cm. This was repaired primarily using 0 Ethibond [id number] sutures. The sigmoid colon was sent to the lab for pathology. Description of Procedure Procedure as well as risks, benefits, and alternatives were discussed with the patient. Written consent was obtained and placed in chart prior to procedure. Patient was brought back to surgical suite. He was placed supine on operating table. Time-out was done to confirm patient and procedure. He was then intubated by the anesthesia department. He was then repositioned into a modified lithotomy position. His rectal area was prepped and draped in sterile fashion using Betadine prep and her abdomen was prepped and draped in sterile fashion using chlorhexidine prep. A 4 cm transverse mini Pfannenstiel incision was made using a 15 blade scalpel. Electrocautery was used for hemostasis and for dissection through the subcutaneous tissue. The anterior rectus sheath was identified and incised transversely using electrocautery. The rectus muscle was carefully dissected off of the fascia using blunt dissection and electrocautery. The peritoneum was then incised using electrocautery vertically. A small Jadon wound protector was then placed and a 5 mm port was placed with the wound protector twisted shut around it. Carbon dioxide insufflation was then utilized for pneumoperitoneum. A 8 mm incision was made in the right upper quadrant and a 8 mm AirSeal trocar was advanced through the abdominal layers under direct visualization. Camera was inserted and his abdomen was inspected laparoscopically. The sigmoid colon was identified adherent to the suprapubic abdominal wall. The patient was placed in steep Trendelenburg position. A 12 mm incision was made in the right lower quadrant about 2 cm medial to the ASIS, and a 12 mm trocar was inserted under direct visualization. Three more 8 mm incisions were placed and 8 mm ports were placed under direct visualization on an oblique angle going up towards the left upper quadrant. 0.5% bupivacaine with epinephrine was infiltrated locally around each port site. A careful thorough examination of the abdominal cavity was performed. The omentum was reflected cephalad over the stomach. The cecum and small bowel were reflected out of the pelvis. The robotic arms were then brought up to the patient's bedside in secured to the ports. The robotic camera and instruments were then inserted and then I moved over to the robotic console and took control of the camera and instruments. After carefully inspecting the abdominal cavity, I then began taking down the adhesions of the sigmoid colon up to the pelvic wall. There was also 1 loop of small bowel that was adherent to the right side of the sigmoid colon. This came down easily with careful dissection with scissors. The adhesions of the sigmoid colon up to the dome of the bladder were densely adherent. These were carefully taken down using scissors with electrocautery and blunt dissection. Eventually I was able to mobilize the sigmoid colon away from the dome of the bladder. There appeared to be some scar tissue just to the left of midline near the dome of the bladder, but there did not appear to be a grossly large hole in the bladder itself. I was then able to take down some of the lateral adhesions to the mesocolon of the sigmoid colon. I then lifted the rectosigmoid junction anteriorly to tent up the inferior mesenteric artery pedicle. A medial to lateral dissection was performed using scissors with electrocautery. I scored the peritoneum along the undersurface of the superior hemorrhoidal vessel at the sacral promontory and entered into the avascular space. I carefully dissected within the space to dissect the hypogastric nerves posteriorly and dissect laterally until the left ureter was identified. The ureter was identified and protected in its position throughout its course. I continued the dissection proximally on the inferior mesenteric artery using scissors with electrocautery. I carefully encircled the inferior mesenteric artery about 2 cm distal to the origin. I then ensured that the left ureter was still in its proper position and then ligated and divided the inferior mesenteric artery using the vessel sealer. I then continued the medial to lateral dissection until I reached the lateral peritoneal reflection the sigmoid and descending colon. Then also dissected up to the inferior mesenteric vein. The inferior mesenteric vein was dissected back until it was near the inferior edge of the pancreas and then the inferior mesenteric vein was ligated and divided using the vessel sealer. I then took down the splenic flexure using scissors with electrocautery to allow adequate mobilization of the descending colon down into the pelvis.. I then retracted the sigmoid and descending colon medially and took down the lateral peritoneal attachments using scissors with electrocautery. While doing this I entered into the previous plane of dissection from the medial to lateral approach. I ensured that the left ureter was protected in its position throughout its course. I then continued the distal dissection and took down the lateral attachments to the rectosigmoid junction and identified a point on the upper rectum that appeared healthy and viable and a good position for the distal transection. The mesorectum was taken down perpendicular to this point using the vessel sealer. The 60 mm blue load robotic stapler was then advanced across the rectum and then this was clamped and fired. The rectal stump was inspected and appeared healthy and viable. I then identified the descending colon at a point that appeared to come down in the pelvis without any tension. This was chosen as the proximal transection point. The mesocolon was taken down up to this point using the vessel sealer. 3 cc of ICG was then given intravenously and vascular perfusion to the bowel was assessed using near infrared imaging. The site for the proximal transection was clearly visible with adequate perfusion as well as the rectal stump. A 4 cm colotomy was made on the anti mesenteric surface of the sigmoid colon. The 28 mm EEA anvil was then advanced through the colotomy and then pierced through the tinea on the anti mesenteric surface of the colon about 4 cm proximal to the colotomy. Initially I tried to use a 60 mm blue load stapler to come across the descending colon just distal to that anvil, but the tissue appeared to thick. I then chose a green 60 mm stapler and this compressed across the descending colon at this point. Stapler was then fired to transect the sigmoid colon. The specimen was then placed in the right lower quadrant to be extracted at the end of the procedure. A 3 0 V lock pursestring suture was then placed around the anvil to secured in place. The anvil was then brought down into the pelvis and appeared to be coming down into the pelvis without any tension. The EEA sizers were then advanced up to the rectal stump followed by the 28 mm EEA stapler. The pin of the stapler was opened just posterior to the staple line along the right corner of the staple line. The anvil was then attached to the stapler and the stapler was carefully closed. I ensured that the descending colon was not twisted along its path and no other tissue was closed within the stapler. Stapler was then fired to create our EEA anastomosis. Stapler and anvil were carefully removed. I then inspected the staple line and it appeared circumferential and the anastomotic rings appeared circumferential on the stapler. The lateral and anterior surface of the anastomosis was then reinforced using 3-0 Vicryl seromuscular imbricating sutures. The descending colon was then pinched closed with a laparoscopic grasper. The rigid proctoscope was then inserted into the rectum and the pelvis was filled with sterile saline. Air was insufflated through the rigid proctoscope to dilate the anastomosis. No air bubbles were seen leaking from the anastomosis. The rigid proctoscope was then removed. One final inspection was then made around the abdominal cavity and no other abnormalities were identified. A laparoscopic clamp was then placed on the specimen for extraction. The camera and instruments were removed and the robotic arms were disengaged from the ports. The patient was then flattened out in bed. One final inspection was made around the abdominal cavity and no other abnormalities were noted. The 12 mm port was removed and the fascia was then closed using an 0 Vicryl suture with a Dae-Corine cone. The specimen was then advanced to the Pfannenstiel incision and then delivered through the wound protector and removed. I then inspected the abdomen around the Pfannenstiel incision and no other abnormalities were noted. The wound protector was then removed. The peritoneum was closed using 0 Vicryl running suture. The rectus muscle was reapproximated in the midline using 0 Vicryl simple interrupted sutures. The anterior rectus sheath was then reapproximated using 0 PDS running absorbable suture. Oralia's fascia was reapproximated using 3-0 Vicryl simple interrupted sutures. The remaining ports were then removed. A 3 cm curvilinear incision was made just inferior to the umbilicus using a 15 blade scalpel. Electrocautery was used for hemostasis and for dissection through the subcutaneous tissue. The hernia defect was encountered and the hernia sac was carefully dissected off of the umbilical skin using electrocautery. The fascia was then cleared around the hernia defect. The hernia only measured about 1 cm. This was then reapproximated using 0 Ethibond [id number] sutures. A total of 2 sutures were placed in a vertical orientation. Sutures were tied down in place. The repair was inspected and appeared secure. The umbilical skin was then reapproximated to the fascia using a 3-0 Vicryl simple interrupted suture. The deep dermis was reapproximated using 3-0 Vicryl inverted interrupted sutures. The skin of the incisions was then reapproximated using 4-0 Monocryl running subcuticular suture. Exofin glue was then applied on top. The patient was then awakened from anesthesia, extubated, and transferred to recovery. Estimated Blood Loss 50 Pathology Yes (Sigmoid colon) Complications No immediate complications Condition Stable Disposition Floor [facility] [place] Billing Surgery - Charge Forward: Surgery Billing
[2024-04-17] MEDS: diphenhydrAMINE HCl INJ 50 MG/ML VIAL 25 MG IV PUSH (15:01)
--- NOTE | 2024-04-17 15:45 | SUR.PHASEI ---
Patient meets PACU discharge criteria, unit bed unavailable at this time. Patient placed in extended recovery status.
[2024-04-17] MEDS: oxyCODONE HCL (*CRX) 5 MG TAB IR PO (18:47)
[2024-04-17] MEDS: MORPHINE SULFATE (*CRX) 4 MG/ML INJ IV PUSH (19:52)
[2024-04-17] MEDS: ceFAZolin 1 GM/NS 50 ML 1 GM/50 ML BAG IVPB (21:23)
[2024-04-17] MEDS: LACTATED RINGERS 1,000 ML 100 ML IV CONT (21:23)
[2024-04-18 00:43] VITALS: BP 108/60; PULSE 100; RESP 14; TEMP 37.1; O2SAT 93
[2024-04-18] MEDS: oxyCODONE HCL (*CRX) 5 MG TAB IR PO ×3 (03:24→18:18)
[2024-04-18 04:29] VITALS: BP 108/64; PULSE 93; RESP 16; TEMP 37.2; O2SAT 95
[2024-04-18] MEDS: ceFAZolin 1 GM/NS 50 ML 1 GM/50 ML BAG IVPB (06:11)
[2024-04-18] MEDS: ACETAMINOPHEN 500 MG TABLET 1000 MG PO ×4 (06:12→23:02)
[2024-04-18] MEDS: LACTATED RINGERS 1,000 ML 100 ML IV CONT ×2 (06:14→16:58)
[2024-04-18 06:38] LABS: Hematocrit 35.1 % (42.0-52.0); Hemoglobin 11.4 g/dL (14.0-18.0); Mean Corpuscular HGB Conc 32.5 g/dl (32-36); Mean Corpuscular Hemoglobin 31.3 pg (26-34); Mean Corpuscular Volume 96.4 fl (80-100); Mean Platelet Volume 11.3 fl (7.4-10.4); Platelet Count Result 192 k/mm3 (150-375); Red Blood Count 3.64 M/mm3 (4.6-6.20); Red Cell Distribution Width 16.3 % (11.5-14.5); White Blood Count 9.6 K/mm3 (4.5-10.0)
[2024-04-18 07:11] LABS: Anion Gap 6 mmol/L (4-12); Blood Urea Nitrogen 11 mg/dL (9-20); Calcium 8.4 mg/dL (8.4-10.2); Carbon Dioxide 25 mmol/L (22-30); Chloride 103 mmol/L (98-107); Estimated CRCL calculation 79 ml/min; Estimated Glomerular Filt Rate > 60; Glucose 107 mg/dL (65-110); Potassium 3.7 mmol/L (3.4-5.0); Sodium 134 mmol/L (137-145)
[2024-04-18] MEDS: ENOXAPARIN 40 MG/0.4 ML SYRINGE SUB-Q (08:04)
[2024-04-18] MEDS: PANTOPRAZOLE 40 MG TABLET PO (08:04)
--- NOTE | 2024-04-18 09:54 | P.PNGS_ITS ---
Progress Note: A&P Assessment and Plan (1) [place]-vesical fistula: Code(s): N32.1 - Vesicointestinal fistula Status: Acute Assessment and Plan: * Keep Mo in place * Will advance to full liquids later today * Await return of bowel function * Increase activity gradually (2) Diverticulitis of colon with perforation: Code(s): K57.20 - Diverticulitis of large intestine with perforation and abscess without bleeding Status: Acute (3) Umbilical hernia without mention of obstruction or gangrene: Code(s): K42.9 - Umbilical hernia without obstruction or gangrene Status: Acute Subjective Subjective Date/Time Seen: 04/18/24 09:54 Interval history: Pain controlled. Up ambulating. No flatus or BM yet. No nausea or vomiting. Exam GI: Inspection: non-distended and incision (intact with glue) GI Palp: Yes Soft to palpation and Yes Tenderness to palpation present (GI) (incisional) Auscultation: normal bowel sounds Urinary Catheter: Urinary Catheter: urine clear Objective Data Vital Signs Vital Signs: Vital Signs - 24 hr 04/17/24 14:31 04/17/24 14:45 04/17/24 15:00 Temperature 97.2 F L Pulse Rate 65 64 73 Respiratory Rate 13 14 24 H Blood Pressure 117/69 127/68 110/65 Pulse Oximetry 100 100 100 Oxygen Delivery Simple Face Mask Simple Face Mask Room Air Oxygen Flow Rate 8 8 04/17/24 15:16 04/17/24 15:31 04/17/24 15:45 Temperature Pulse Rate 70 61 75 Respiratory Rate 16 12 18 Blood Pressure 142/83 H 117/61 113/60 Pulse Oximetry 100 100 99 Oxygen Delivery Room Air Nasal Cannula Nasal Cannula Oxygen Flow Rate 2 2 04/17/24 16:15 04/17/24 16:45 04/17/24 17:15 Temperature Pulse Rate 88 92 92 Respiratory Rate 14 12 18 Blood Pressure 126/71 120/80 119/77 Pulse Oximetry 100 99 100 Oxygen Delivery Nasal Cannula Nasal Cannula Room Air Oxygen Flow Rate 2 2 04/17/24 17:45 04/17/24 18:15 04/17/24 18:45 Temperature Pulse Rate 109 H 105 H 99 Respiratory Rate 18 18 18 Blood Pressure 127/78 134/77 131/69 Pulse Oximetry 98 95 97 Oxygen Delivery Room Air Room Air Room Air Oxygen Flow Rate 04/17/24 19:15 04/17/24 20:24 04/17/24 21:34 Temperature 98.7 F 98.2 F Pulse Rate 110 H 97 100 Respiratory Rate 18 16 14 Blood Pressure 143/81 H 144/75 H 120/70 Pulse Oximetry 94 95 Oxygen Delivery Room Air Oxygen Flow Rate 04/18/24 00:43 04/18/24 04:29 Temperature 98.7 F 98.9 F Pulse Rate 100 93 Respiratory Rate 14 16 Blood Pressure 108/60 108/64 Pulse Oximetry 93 95 Oxygen Delivery Oxygen Flow Rate Intake/Output Intake/Output: Intake & Output 04/15/24 04/16/24 04/17/24 04/18/24 23:59 23:59 23:59 23:59 Intake Total 1150 1425 Output Total 300 350 Balance 850 1075 Meds/Results Medications: Active Medications Generic Name Dose Route Start Last Admin Trade Name Freq PRN Reason Stop Dose Admin Acetaminophen 1,000 mg 04/17/24 21:00 04/18/24 06:12 Acetaminophen 500 Mg Tablet PO 1,000 mg Q6HR YULIA Administration Enoxaparin Sodium 40 mg 04/18/24 09:00 04/18/24 08:04 Enoxaparin 40 Mg/0.4 Ml Syringe SUB-Q 40 mg DAILY YULIA Administration Lactated Ringer's 1,000 mls @ 100 mls/hr 04/17/24 19:54 04/18/24 06:14 Lr - Lactated Ringers Iv IV CONT 100 mls/hr .Q10H YULIA Administration Morphine Sulfate 2 mg 04/17/24 19:39 Morphine Sulfate (*Crx) 2 Mg/Ml Inj IV PUSH Q2H PRN Breakthrough Pain Rated 4-6 or NPO Morphine Sulfate 4 mg 04/17/24 19:39 04/17/24 19:52 Morphine Sulfate (*Crx) 4 Mg/Ml Inj IV PUSH 4 mg Q2H PRN Administration Breakthrough Pain Rated 7-10 or NPO Naloxone HCl 0.1 mg 04/17/24 19:54 Naloxone Hcl 0.4 Mg/Ml Vial IV PUSH Q2M PRN Opiate Reversal Ondansetron HCl 4 mg 04/17/24 19:54 Ondansetron Inj 4 Mg/2 Ml Vial IV PUSH Q4H PRN Nausea And Vomiting Oxycodone HCl 5 mg 04/17/24 18:46 04/18/24 03:24 Oxycodone Hcl (*Crx) 5 Mg Tab Ir PO 5 mg Q4H PRN Administration Pain Rated 7-10 Oxycodone HCl 2.5 mg 04/17/24 19:54 Oxycodone Hcl (*Crx) 2.5 Mg Tab Ir PO Q4H PRN Pain Rated 4-6 Pantoprazole Sodium 40 mg 04/18/24 09:00 04/18/24 08:04 Pantoprazole 40 Mg Tablet PO 40 mg QAM YULIA Administration Radiology Results: ITS Impressions Ureter Stent X-Ray 04/17/24 11:09 IMPRESSION: 1. Bilateral internal ureteral stent placement. Please refer to real-time procedural findings for details. Labs Labs: Laboratory Results - last 24 hr 04/18/24 06:06 WBC 9.6 RBC 3.64 L Hgb 11.4 L Hct 35.1 L MCV 96.4 MCH 31.3 MCHC 32.5 RDW 16.3 H Plt Count 192 MPV 11.3 H Sodium 134 L Potassium 3.7 Chloride 103 Carbon Dioxide 25 Anion Gap 6 BUN 11 D Creatinine 0.81 Estim Creat Clear Calc 79 Estimated GFR > 60 Glucose 107 Calcium 8.4
[2024-04-18 13:39] VITALS: BP 137/77; PULSE 72; RESP 18; TEMP 37.2; O2SAT 98
--- NOTE | 2024-04-18 15:38 | WPDANESPN ---
Anes - Prog Note Post-Op Date/Time: 04/18/24 15:38 Cardiovascular status: normal Respiratory status: normal Airway patency: baseline Mental status: baseline Post-Op hydration status: normal Vital Signs: Last Vital Signs Temp 37.2 C 04/18/24 13:39 Pulse 72 04/18/24 13:39 Resp 18 04/18/24 13:39 BP 137/77 04/18/24 13:39 Pulse Ox 98 04/18/24 13:39 O2 Del Method Room Air 04/18/24 08:00 O2 Flow Rate 2 04/17/24 16:45 Pain Score (VAS): 5 I/O: Intake & Output 04/17/24 04/18/24 04/18/24 23:59 07:59 15:59 Intake Total 850 1185 240 Output Total 300 350 Balance 550 835 240 Laboratory Tests 04/18/24 06:06 04/18/24 06:06 04/18/24 06:06 WBC 9.6 RBC 3.64 L Hgb 11.4 L Hct 35.1 L MCV 96.4 MCH 31.3 MCHC 32.5 RDW 16.3 H Plt Count 192 MPV 11.3 H Sodium 134 L Potassium 3.7 Chloride 103 Carbon Dioxide 25 Anion Gap 6 BUN 11 D Creatinine 0.81 Estim Creat Clear Calc 79 Estimated GFR > 60 Glucose 107 Calcium 8.4 Post-procedural complaints: none Patient Feedback: Patient satisfied with anesthetic care.
[2024-04-18 21:17] VITALS: BP 135/76; PULSE 80; RESP 16; TEMP 37.5; O2SAT 96
[2024-04-19] MEDS: oxyCODONE HCL (*CRX) 5 MG TAB IR PO ×4 (01:15→18:09)
[2024-04-19] MEDS: ACETAMINOPHEN 500 MG TABLET 1000 MG PO ×4 (05:19→23:40)
[2024-04-19 06:00] VITALS: BP 138/78; PULSE 80; RESP 16; TEMP 36.7; O2SAT 97
[2024-04-19 06:31] LABS: Hematocrit 32.6 % (42.0-52.0); Hemoglobin 10.6 g/dL (14.0-18.0); Mean Corpuscular HGB Conc 32.5 g/dl (32-36); Mean Corpuscular Hemoglobin 31.5 pg (26-34); Mean Platelet Volume 10.7 fl (7.4-10.4); Platelet Count Result 172 k/mm3 (150-375); Red Blood Count 3.36 M/mm3 (4.6-6.20); Red Cell Distribution Width 15.8 % (11.5-14.5); White Blood Count 9.4 K/mm3 (4.5-10.0)
[2024-04-19 06:43] LABS: Anion Gap 4 mmol/L (4-12); Blood Urea Nitrogen 9 mg/dL (9-20); Calcium 8.1 mg/dL (8.4-10.2); Carbon Dioxide 27 mmol/L (22-30); Chloride 105 mmol/L (98-107); Estimated CRCL calculation 91 ml/min; Estimated Glomerular Filt Rate > 60; Glucose 99 mg/dL (65-110); Potassium 3.8 mmol/L (3.4-5.0); Sodium 136 mmol/L (137-145)
[2024-04-19] MEDS: PANTOPRAZOLE 40 MG TABLET PO (08:17)
[2024-04-19] MEDS: ENOXAPARIN 40 MG/0.4 ML SYRINGE SUB-Q (08:17)
--- NOTE | 2024-04-19 12:28 | P.PNGS_ITS ---
Progress Note: A&P Assessment and Plan (1) [place]-vesical fistula: Code(s): N32.1 - Vesicointestinal fistula Status: Acute Assessment and Plan: * Keep Mo in place * Will advance to low fiber diet today * Increase activity gradually * Pathology discussed with patient * Possibly home tomorrow (2) Diverticulitis of colon with perforation: Code(s): K57.20 - Diverticulitis of large intestine with perforation and abscess without bleeding Status: Acute (3) Umbilical hernia without mention of obstruction or gangrene: Code(s): K42.9 - Umbilical hernia without obstruction or gangrene Status: Acute Subjective Subjective Date/Time Seen: 04/19/24 12:28 Interval history: Tolerating full liquids. Bowels moving. Pain control much improved. No nausea or vomiting. Ambulating in halls. Exam GI: Inspection: non-distended and incision (intact with glue) GI Palp: Yes Soft to palpation and Yes Tenderness to palpation present (GI) (incisional) Auscultation: normal bowel sounds Urinary Catheter: Urinary Catheter: urine clear Objective Data Vital Signs Vital Signs: Vital Signs - 24 hr 04/18/24 13:39 04/18/24 20:00 04/18/24 21:17 Temperature 98.9 F 99.5 F Pulse Rate 72 80 Respiratory Rate 18 16 Blood Pressure 137/77 135/76 Pulse Oximetry 98 96 Oxygen Delivery Room Air 04/19/24 06:00 Temperature 98.0 F Pulse Rate 80 Respiratory Rate 16 Blood Pressure 138/78 Pulse Oximetry 97 Oxygen Delivery Intake/Output Intake/Output: Intake & Output 04/16/24 04/17/24 04/18/24 04/19/24 23:59 23:59 23:59 23:59 Intake Total 1150 2425 2717 Output Total 300 2350 1200 Balance 047 94 2860 Meds/Results Medications: Active Medications Generic Name Dose Route Start Last Admin Trade Name Freq PRN Reason Stop Dose Admin Acetaminophen 1,000 mg 04/17/24 21:00 04/19/24 11:01 Acetaminophen 500 Mg Tablet PO 1,000 mg Q6HR YULIA Administration Enoxaparin Sodium 40 mg 04/18/24 09:00 04/19/24 08:17 Enoxaparin 40 Mg/0.4 Ml Syringe SUB-Q 40 mg DAILY YULIA Administration Morphine Sulfate 2 mg 04/17/24 19:39 Morphine Sulfate (*Crx) 2 Mg/Ml Inj IV PUSH Q2H PRN Breakthrough Pain Rated 4-6 or NPO Morphine Sulfate 4 mg 04/17/24 19:39 04/17/24 19:52 Morphine Sulfate (*Crx) 4 Mg/Ml Inj IV PUSH 4 mg Q2H PRN Administration Breakthrough Pain Rated 7-10 or NPO Naloxone HCl 0.1 mg 04/17/24 19:54 Naloxone Hcl 0.4 Mg/Ml Vial IV PUSH Q2M PRN Opiate Reversal Ondansetron HCl 4 mg 04/17/24 19:54 Ondansetron Inj 4 Mg/2 Ml Vial IV PUSH Q4H PRN Nausea And Vomiting Oxycodone HCl 5 mg 04/17/24 18:46 04/19/24 08:17 Oxycodone Hcl (*Crx) 5 Mg Tab Ir PO 5 mg Q4H PRN Administration Pain Rated 7-10 Oxycodone HCl 2.5 mg 04/17/24 19:54 Oxycodone Hcl (*Crx) 2.5 Mg Tab Ir PO Q4H PRN Pain Rated 4-6 Pantoprazole Sodium 40 mg 04/18/24 09:00 04/19/24 08:17 Pantoprazole 40 Mg Tablet PO 40 mg QAM YULIA Administration Radiology Results: ITS Impressions Ureter Stent X-Ray 04/17/24 11:09 IMPRESSION: 1. Bilateral internal ureteral stent placement. Please refer to real-time procedural findings for details. Labs Labs: Laboratory Results - last 24 hr 04/19/24 06:23 WBC 9.4 RBC 3.36 L Hgb 10.6 L Hct 32.6 L MCV 97.0 MCH 31.5 MCHC 32.5 RDW 15.8 H Plt Count 172 MPV 10.7 H Sodium 136 L Potassium 3.8 Chloride 105 Carbon Dioxide 27 Anion Gap 4 BUN 9 Creatinine 0.70 Estim Creat Clear Calc 91 Estimated GFR > 60 Glucose 99 Calcium 8.1 L
[2024-04-19 14:00] VITALS: BP 123/82; PULSE 74; RESP 18; TEMP 37; O2SAT 97
[2024-04-19 20:00] VITALS: PULSE 84; RESP 16; O2SAT 98
[2024-04-19 21:49] VITALS: BP 137/75; PULSE 84; RESP 16; TEMP 36.8; O2SAT 98
[2024-04-20] MEDS: oxyCODONE HCL (*CRX) 5 MG TAB IR PO ×2 (00:29→06:39)
[2024-04-20] MEDS: ACETAMINOPHEN 500 MG TABLET 1000 MG PO ×2 (05:38→11:27)
[2024-04-20 06:00] VITALS: BP 153/83; PULSE 76; RESP 14; TEMP 36.7; O2SAT 99
[2024-04-20 07:36] LABS: Hematocrit 33.8 % (42.0-52.0); Hemoglobin 10.8 g/dL (14.0-18.0); Mean Corpuscular Hemoglobin 30.8 pg (26-34); Mean Corpuscular Volume 96.3 fl (80-100); Mean Platelet Volume 11.2 fl (7.4-10.4); Platelet Count Result 212 k/mm3 (150-375); Red Blood Count 3.51 M/mm3 (4.6-6.20); Red Cell Distribution Width 15.5 % (11.5-14.5); White Blood Count 7.9 K/mm3 (4.5-10.0)
[2024-04-20 07:39] LABS: Potassium 3.5 mmol/L (3.4-5.0)
[2024-04-20 07:51] LABS: Anion Gap 7 mmol/L (4-12); Blood Urea Nitrogen 10 mg/dL (9-20); Calcium 8.3 mg/dL (8.4-10.2); Carbon Dioxide 26 mmol/L (22-30); Chloride 105 mmol/L (98-107); Estimated CRCL calculation 101 ml/min; Estimated Glomerular Filt Rate > 60; Glucose 88 mg/dL (65-110); Sodium 138 mmol/L (137-145)
[2024-04-20] MEDS: PANTOPRAZOLE 40 MG TABLET PO (08:41)
[2024-04-20] MEDS: ENOXAPARIN 40 MG/0.4 ML SYRINGE SUB-Q (08:41)
[2024-04-20] MEDS: oxyCODONE HCL (*CRX) 2.5 MG TAB IR PO (11:27)
--- NOTE | 2024-04-20 11:41 | P.DS_ITS ---
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 He had been experiencing fecaluria and was found to have diverticulitis in January of 2024. He was treated with antibiotics until the acute infection had resolved. Preoperative stent placement was performed with cystoscopy by Dr. Card. He was admitted to the hospital postoperatively for recovery. He was started on a clear liquid diet and Mo catheter was kept in place. On postop day 1 he was tolerating his clear liquid diet and was advanced to a full liquid diet. He had scant hematuria but Mo catheter was functioning and draining well. His bowels began moving and his pain was better controlled. Postop day 2 he was advanced to a low-fiber diet. On postoperative day 3 he was tolerating the low- fiber diet and pain was well controlled. He remained hemodynamically stable. He was discharged on postoperative day 3. Status at Discharge Functional status at discharge: independent ambulation Overall status at discharge: patient is progressing back to baseline Time Spent with Patient Time attestation: Total time spent providing and/or coordinating discharge services: Time spent: Less than 30 minutes Exam Const: General: comfortable and no acute distress Orientation/ consciousness: patient oriented x3 Resp: Effort & Inspection: normal respiratory effort Auscultation: clear to auscultation bilaterally Cardio: Rate: regular rate Rhythm: regular rhythm Heart sounds: S1 normal heart sound present and S2 normal heart sound present GI: Inspection: non-distended and incision (Intact with glue) GI Palp: Yes Soft to palpation, No Tenderness to palpation present (GI) and No Guarding due to palpation present (GI) Urinary Catheter: Urinary Catheter: urine pink DS: Data Data Completed and Pending Completed studies during hospitalization: Pending at discharge 04/17/24 13:58 Surgical [PTH] Routine Labs on day of discharge: Labs from last 24 hours 04/20/24 07:03 WBC 7.9 RBC 3.51 L Hgb 10.8 L Hct 33.8 L MCV 96.3 MCH 30.8 MCHC 32.0 RDW 15.5 H Plt Count 212 MPV 11.2 H Sodium 138 Potassium 3.5 Chloride 105 Carbon Dioxide 26 Anion Gap 7 BUN 10 Creatinine 0.62 L Estim Creat Clear Calc 101 Estimated GFR > 60 Glucose 88 Calcium 8.3 L Discharge Plan Discharge Attending physician on discharge: Damion Landeros Consulting providers: Laith Card Discharging Clinician: Damion Landeros Patient Disposition: Home, Self-Care Activity: may shower and other - see discharge instructions Diet: low fiber Wound Care Instructions: other - see discharge instructions Discharge Instructions: Postoperative instructions * Continue routine Mo catheter care and use leg bag as needed * No lifting greater than 10 lb for the next 6 weeks * Okay to shower, no bathing or soaking underwater for 2 weeks * Okay to drive in 3 days or when no longer taking narcotic pain medications * Maintain a soft low-fiber diet for the next week, then may resume regular diet * Call office for increasing pain, fevers, rapid heart rate, or other problems with incisions Patient Instructions: Antibiotic Form Patient Language: Thai Stand Alone Forms: General Discharge Information Follow-up/Referrals: Damion Landeros DO [Physician] - 05/03/24 1:45 pm Discharge Medications: New oxycodone-acetaminophen [Endocet] 5-325 mg tablet 0.5 - 1 tablet PO Q4H PRN (Reason: pain) Qty: 15 0RF Continued multivitamin [Daily Multi-Vitamin] Tablet 1 tablet PO DAILY esomeprazole magnesium [Nexium 24HR] 20 mg Capsule,Delayed Release(Dr/Ec) 20 mg PO DAILY Discontinued ciprofloxacin HCl 500 mg tablet See Rx Instructions .Route .COMPLEX Qty: 1 0RF Rx Instructions: Take 1 tablet by mouth at 2:00 PM the day prior to surgery.; metronidazole 500 mg tablet See Rx Instructions .Route .COMPLEX Qty: 3 0RF Rx Instructions: Take 1 tablet by mouth at 1:00PM, 2:00PM, and 11:00PM the day prior to surgery.; Date of admission: 04/17/24 11:00 Primary Care Provider: Nixon Israel Admitting Provider: Damion Landeros Attending physician on admission: Damion aLnderos Condition: Improved
== END 2024-04-20 13:05 | disposition home or self-care (01) | DRG 660 ==
LOC: ANH3MEDSUR 04-18 06:24
PROVIDERS: Urology; Admitting Provider Surgery; PCP Family Medicine; Visit Provider Surgery
PROC: 0WQF0ZZ Repair Abdominal Wall, Open Approach (ICD-10-PCS; principal; 2024-04-17 09:30)
PROC: 0WQF0ZZ Repair Abdominal Wall, Open Approach (ICD-10-PCS; 2024-04-17 09:30)
PROC: BT141ZZ Fluoroscopy of Kidneys, Ureters and Bladder using Low Osmolar Contrast (ICD-10-PCS; 2024-04-17 09:30)
DX: N32.1 Vesicointestinal fistula (principal); K57.32 Diverticulitis of large intestine without perforation or abscess without bleeding; K21.9 Gastro-esophageal reflux disease without esophagitis; K42.9 Umbilical hernia without obstruction or gangrene
CPT/HCPCS: 36415; 80048; 85027; 88307; A9270; C1729; C1758; C1769; J0690; J1200; J1596; J1650; J1836; J1885; J2250; J2270; J2405; J2704; J2710; J3010; J7030; J7120

== ENCOUNTER 2024-04-25 09:43 | Outpatient (CLI) | payer MEDICARE, SELFPAY ==
--- NOTE | ~2024-04-25 | XR_ITS ---
EXAMINATION: CYSTOGRAM DATE: 04/25/2024 11:12 INDICATION: Bladder cancer follow-up TECHNIQUE: Initial trauma surgeon radiograph of the pelvis was performed. There was retrograde administration of Omnipaque 350 mixed with saline contrast into patient's existing Mo catheter. 16 fluoroscopic images and 2 overhead radiographs of the pelvis were obtained. A post-void image was also performed. Fluoroscopy exposure time was 0.5 minutes. Total DAP was 14.916 Gycm^2 FINDINGS: Rib Bender image demonstrates an anastomotic suture line projecting over the central pelvis. 9 degrees tho racolumbar dextrocurvature. Contrast fills the bladder surrounding a Mo catheter. There is no evid ent bladder leak. IMPRESSION: No bladder leak. Reviewed, dictated and finalized at location A. E REELER IMPRESSION: No bladder leak.
== END 2024-04-25 09:44 | disposition home or self-care (01) ==
PROVIDERS: PCP Family Medicine; Visit Provider Surgery
DX: N32.1 Vesicointestinal fistula (principal)
CPT/HCPCS: 51600; 74430; Q9967

== ENCOUNTER 2024-05-11 07:36 | Outpatient (CLI) | payer MEDICARE, SELFPAY ==
--- NOTE | ~2024-05-11 | PE_ITS ---
EXAMINATION: PET_PETPSMAST_PT DATE: 05/11/2024 10:11 INDICATION: Prostate cancer TECHNIQUE: 5.046 mCi of Illucix Ga-68([id number]) was administered i.v. Low dose computed sofia graphy (CT) images were acquired from the base of the brain to the base of the brain to the proximal thighs for attenuation correction and anatomic localization. Positron emission tomography (PET) image s were acquired in the same distribution beginning 80 minutes after injection. Images including fused PET/CT images were reconstructed in axial, coronal, and sagittal planes. Automated exposure control technique was employed. The dose-length product was 858.34mGy-cm. COMPARISON: None FINDINGS: Head/neck: Typical pattern of symmetric physiologic increased activity in the lacrimal, parotid and submandibula r glands as well as along the mucosa of the nasal and oral cavities, pharynx and hypopharynx. No path ologically enlarged cervical lymphadenopathy or suspicious foci of increased uptake in the visualized head or neck. Chest: Mild dependent atelectasis in bilateral upper and lower lobes. No suspicious pulmonary nodules, pneum onia, pulmonary edema or pleural effusion. Heart size is normal. No pericardial effusion. Thoracic ao rta is normal in caliber. Calcified lymph nodes at the left hilum and AP window consistent with old g ranulomatous disease. No pathologically enlarged or PSMA avid thoracic lymphadenopathy. Abdomen/pelvis/proximal thighs: Physiologic renal accumulation and excretion of activity in the kidneys, bladder and along portions o f ureters. Small focus of asymmetric increased uptake at the right inferior aspect of the enlarged pr ostate with maximal SUV of 4.5 and consistent with primary prostate cancer. Normal degree and slightl y heterogenous pattern of increased uptake throughout the liver and spleen without radiologic correla te or dominant PSMA avid lesion. Multiple calcified gallstones in the dependent aspect of the normal- appearing gallbladder. The gallbladder, pancreas and bilateral adrenal glands are normal. Moderate up take scattered throughout the bowels with typical duodenal and proximal jejunal predominance and with out radiologic correlate, also likely physiologic. There are several diverticula along the descending and sigmoid colon without surrounding inflammatory changes to suggest diverticulitis. There is anast omotic suture line at the sigmoid colon consistent with prior partial colectomy. Normal appendix. No other abnormal foci of increased uptake or pathologically enlarged lymphadenopathy in the abdomen, pe lvis or proximal thighs. Musculoskeletal: No suspicious lytic, blastic or PSMA avid bone lesions. IMPRESSION: 1. Asymmetric focus of mild increased activity at the right inferior aspect of the enlarged prostate consistent with primary prostate cancer. No evident metastatic disease. 2. Cholelithiasis. Reviewed, dictated and finalized at location A. 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 Asymmetric focus of mild increased activity at the right inferior aspect of the enlarged prostate consistent with primary prostate cancer. No evident metas tatic disease. 2. Cholelithiasis.
== END 2024-05-11 07:37 | disposition home or self-care (01) ==
PROVIDERS: PCP Family Medicine; Visit Provider Urology
DX: C61 Malignant neoplasm of prostate (principal); K80.20 Calculus of gallbladder without cholecystitis without obstruction
CPT/HCPCS: 78815; A9596